=== PATIENT | female | born 1940 | race Caucasian/White ===

== ENCOUNTER → 2025-03-13 06:58 | Outpatient (REF) | payer MEDICARE, OTHER, SELFPAY ==
[2025-03-13] MEDS: AMINOPHYLLINE 75 MG IV (08:55)
[2025-03-13] MEDS: FLUSH (NSS) 1 FLUSH IV (08:55)
[2025-03-13] MEDS: LEXISCAN 0.4 MG IV (08:55)
== END ==
LOC: RCS 06:58
PROVIDERS: ATTENDING PHYSICIAN Internal Medicine Cardiovascular Disease; FAMILY PHYSICIAN Internal Medicine
DX: I25.10 Atherosclerotic heart disease of native coronary artery without angina pectoris (principal); I25.9 Chronic ischemic heart disease, unspecified
CPT/HCPCS: 78452; 93017; A9500; J2785

== ENCOUNTER 2025-07-05 22:09 | Inpatient (IN) | payer MEDICARE, OTHER, SELFPAY ==
[2025-07-05 15:04] VITALS: BP 153/82
[2025-07-05 15:44] LABS: Hematocrit 38.1 % (37.0-47.0); Hemoglobin 12.6 g/dL (12.0-16.0); Mean Corp Hgb Conc. 33.1 g/dL (33.0-37.0); Mean Corpuscular Volume 84.5 fL (81.0-99.0); Nucleated Red Blood Cells % 0 %; Platelet Count 233 10^3/uL (130-400); Red Cell Dist. Width 16.1 % (11.5-14.5)
[2025-07-05 15:53] LABS: ALT (SGPT) 17 U/L (0-35); AST (SGOT) 19 U/L (14-36); Albumin 4.0 g/dl (3.5-5.0); Alkaline Phosphatase 137 U/L (38-126); Blood Urea Nitrogen 36 mg/dl (7-17); Calcium 9.3 mg/dl (8.4-10.2); Carbon Dioxide 25 mmol/L (22-30); Chloride 107 mmol/L (98-107); Glucose 143 mg/dl (70-99); Potassium 4.3 mmol/L (3.5-5.1); Sodium 138 mmol/L (135-145); Total Protein 6.5 g/dl (6.3-8.2); eGFR 40.05
--- NOTE | 2025-07-05 18:53 | EDRN ---
Addendum entered by Wan Balderrama RN 07/05/25 19:01:
delivery tech checked pt's accucheck: 129. delivery tech reports pt's son had breached the security doors more than once to complain about the wait prior to the noted interaction. There was staff at the front window cashier. Security involved.
Original Note:
Pt's son came back through unsecured double door from waiting room to protocol area behind triage and was berating ER techs regarding long wait for his mother. This RN instructed him to leave this area and speak with the staff at the cashier receptionist area
in [place]. Son became angered, but did vacate area. Charge nurse and security aware.
[2025-07-05 18:56] LABS: Glucose - Point of Care 129 mg/dl (70-99)
[2025-07-05 19:59] VITALS: BMI 30.3
--- NOTE | 2025-07-05 20:02 | ED.GENMED ---
History of Present Illness
General
Chief Complaint: Breathing Problem
Source: family
Exam Limitations: none
Time Seen by Provider: 07/05/25 19:47
History of Present Illness
History of Present Illness:
Increasing shortness of breath mostly with exertion for weeks. Outpatient chest x-ray showed large left effusion. Sent in for definitive management. No chest pain no fever no cough.
Past History
Past History
ED Past Medical History: Arrthythmia, HTN, Hypercholesterolemia and NIDDM
ED Past Surgical History: Appendectomy, Cholecystectomy, Gynecological, Orthopedic and Tonsilectomy
Phy Exam
Physical Exam
Physical Exam:
GENERAL: Alert and oriented in no apparent distress
EYE: Orbits normal.
NECK: Supple, no significant adenopathy.
ENT: Pharynx without erythema
CARDIAC: Irregular irregular no murmur
LUNGS: No respiratory distress. Decreased breath sounds two thirds the way up the left lung
ABDOMEN: Soft, without focal tenderness or distention
NEUROLOGICAL: Alert and oriented , grossly non-focal
SKIN: Warm and dry, no rash or lesion, no discoloration, skin intact.
MUSCULOSKELETAL: No edema,no deformity.Good color
PSYCH: Normal and appropriate interaction.
Scores
Heart Failure Risk
Heart Failure Risk Score: Not Applicable
Course
Orders/Labs/Results
Orders:
Orders
07/05/25 15:15
Electrocardiogram (*1) Urgent
Reason for Study: Chest Pain
EKG- Treatment ONCE
07/05/25 15:16
Chest [CR Chest - 2 Views ] Urgent
Comment:
Reason For Exam: sob
07/05/25 15:28
Complete Blood Count/With Diff Urgent
Comprehensive Metabolic Panel Urgent
NT-proBNP Urgent
07/05/25 21:27
Admit/Transfer Patient As Directed
Co-Sign Provider:
Level of Care: Inpatient admission
Assign to:: Telemetry
Physician / Group: [email or web address]
Diagnosis: Symtomatic Lt sided pleural effusion, AFib, HTN
Reason for Telemetry: Arrhythmia
Date to Stop Telemetry: 07/08/25
Time to Stop Telemetry: 11:00
Reason for Hospitalization: Symptomatic Lt sided pleural effusion, AFib, HTN
Expected length of stay greater than two midnights?: Yes
ELOS- Estimated Length of Stay in days: 3
I certify the patient meets the requirements for IP care: Yes
07/05/25 21:30
Code Status As Directed
Resuscitation Status: Full Code
07/08/25 11:00
DC Protocol for Telemetry ONCE
Abnormal Lab Results
07/05/25 07/05/25
15:28 18:55
RDW 16.1 H %
(11.5-14.5)
Absolute Neuts (auto) 8.1 H 10^3/uL
(1.4-6.5)
Absolute Monos (auto) 0.9 H 10^3/uL
(0.1-0.6)
Neutrophils % 76.1 H %
(42.2-75.2)
Lymphocytes % 14.7 L %
(20.5-51.1)
BUN 36 H mg/dl
(7-17)
Creatinine 1.3 H mg/dL
(0.6-1.0)
Glucose 143 H mg/dl
(70-99)
Alkaline Phosphatase 137 H U/L
(38-126)
POC Glucose 129 H mg/dl
(70-99)
07/05/25 15:28
07/05/25 15:28
Vital Signs
Initial and Last Documented VS:
Initial Vital Signs
Temp Pulse Resp BP Pulse Ox
98.6 F 110 20 153/82 98
07/05/25 15:04 07/05/25 15:04 07/05/25 15:04 07/05/25 15:04 07/05/25 15:04
Last Documented Vital Signs
Temp Pulse Resp BP Pulse Ox
98.6 F 94 21 159/90 97
07/05/25 15:04 07/05/25 21:15 07/05/25 21:15 07/05/25 20:03 07/05/25 21:15
MDM/Problems Addressed
Differential Diagnosis Includes:
Large left effusion. Atrial fibrillation. Clinically stable. Warrants admission thoracentesis and further workup
*Pulse Oximetry
SaO2: 98
Oxygen Mode of Delivery: Room air
Patient hypoxic: no
*EKG
Interpreted by ED Provider?: Yes
Interpretation: abnormal
Comparison EKG: no comparison EKG present
Heart Rate: 109
Rate: tachycardiac
Rhythm: a-fib
[place]: normal axis
Interval: normal interval
QRS Pattern: normal QRS
Ischemia: non-specific ST changes
*Critical Care Note
Total Time (30-74mins, 75-104mins- exclusive of procedures): Not Applicable
ED Attending Note
-
Portions of this chart may have been created with voice recognition software.� Occasional wrong word or��sound alike� substitutions may have occurred due to the inherent limitations of voice recognition software.
Discharge Plan
Departure
Patient Disposition: Admit
Date of Disposition: 07/05/25
Time of Disposition: 20:42
Presentation/result/management discussed w/ accepting MD/DO: Hospitalist
Discharge Problem:
Symptomatic large left pleural effusion, Atrial fibrillation
Referrals:
Mike Stafford MD [Family Provider, Internal Medicine]
Interventions
Interventions:
*Risk Screen - Suicide Last Done: 07/05/25 15:04
*General Assessment Last Done: 07/05/25 19:59
*Neglect/Abuse Screening Last Done: 07/05/25 15:04
*ED- Fall Risk Assessment Last Done: 07/05/25 19:59
*ED COVID-19 Vaccine History Last Done: 07/05/25 19:59
ED- Cardiac Assessment Last Done: 07/05/25 19:53
ED- Pulmonary Assessment Last Done: 07/05/25 19:53
Discharge Date and Time
Print Language: Norwegian
[2025-07-05 20:03] VITALS: BP 159/90
--- NOTE | 2025-07-05 21:16 | HPS.HSE ---
Family Physician
-
Family Physician: Mike Stafford
Chief Complaint
-
sob
History of Present Illness
HPI
85F Ukaranian speaker , BiB Slovak speaker son HX permanent AF on chr Eliquis, HTN, Hypercholesterolemia and NIDDM on Metformin seen at ER:
- Increasing shortness of breath mostly with exertion for weeks.
- OutpatientCXR POS large left effusion.
- No chest pain no fever no cough.
Medical History
Past Medical History
Past Medical History: Reports Arrhythmia, HTN and Hypercholesterolemia
Past Surgical History: Reports Other
Social History
Alcohol: None
Family History
Family History: Not pertinent
Allergies / Home Medications
Allergies reflects when Allergies were last updated in [facility].
Home Medications with original date entered in [facility]
Allergy/Medication List:
Allergies
Allergy/AdvReac Type Severity Reaction Status Date / Time
iodine Allergy Unknown Verified 07/05/25 15:04
morphine Allergy Unknown Verified 07/05/25 15:04
If medication reconciliation has not been performed, why?: Medication List N/A
Review of Systems
-
Constitutional: Reports No Symptoms
EENT: Reports No Symptoms
Respiratory: Reports See HPI and Trouble Breathing
Cardiac: Reports No Symptoms
Abdomen/GI: Reports No Symptoms
: Reports No Symptoms
Musculoskeletal: Reports No Symptoms
Skin: Reports No Symptoms
Neurological: Reports No Symptoms
Endocrine: Reports No Symptoms
Hematologic/Lymphatic: Reports No Symptoms
Psych: Reports No Symptoms
Physical Exam
Vital Signs
Vital Signs
Temp Pulse Resp BP Pulse Ox
98.6 F 99 20 159/90 96
07/05/25 15:04 07/05/25 20:45 07/05/25 20:45 07/05/25 20:03 07/05/25 20:45
Physical Exam
General: No Apparent Distress
HEENT: NormoCephalic, Anicteric and Moist mucous membranes
Respiratory: Other (Decreased breath sounds two thirds the way up the left lung)
Cardiac: S1/S2 and Irregular Rhythm
GI: Soft, Non Tender and Non Distended
Rectal: Deferred by Provider
Genito-urinary: Deferred by me
Musculoskeletal: No Edema
Neuro: AO x 3
Psych: Calm and Intact Judgment/Insight
Laboratory Results
-
07/05/25 15:28
07/05/25 15:28
Laboratory Results
Total Bilirubin 0.6 mg/dl (0.2-1.3) 07/05/25 15:28
AST 19 U/L (14-36) 07/05/25 15:28
ALT 17 U/L (0-35) 07/05/25 15:28
Alkaline Phosphatase 137 U/L (38-126) H 07/05/25 15:28
Data Reviewed
-
Diagnostic Radiology: Report Reviewed by me
Lab Data: Labs Reviewed by me
Impression/Plan
-
Relevant Data
Laboratory Tests
07/05/25
15:28
WBC 10.6
Hgb 12.6
Plt Count 233
BUN 36 H
Creatinine 1.3 H
eGFR 40.05
Glucose 143 H
AST 19
ALT 17
Alkaline Phosphatase 137 H
Dhd-[id number]-Ueyuxavpcxq Pept 1560
EKG
ATRIAL FIBRILLATION WITH RAPID VENTRICULAR RESPONSE
NONSPECIFIC T WAVE ABNORMALITY
ABNORMAL ECG
NO PREVIOUS ECGS AVAILABLE
Confirmed by TENNILLE FLOREZ MD ([id number]) on 07/05/2025 4:17:41 PM
CXR
Dense opacification of the majority of the left lung favored to represent a combination of large pleural fluid, and atelectasis and/or pneumonia.
A small portion of the left upper lobe remains aerated.
Imaging follow-up is recommended as an underlying mass would be difficult to exclude.
No pneumothorax.
The cardiac silhouette is enlarged.
Moderate thoracic dextroscoliosis.
ASSESSMENT & PLAN
Pending Rx reconciliation
NO PRIOR hospitalist admission:
Lt sided pleural effusion - presumed symptomatic - Malignant vs Benign , Transudate vs exudate
- suspect combination of large pleural fluid, and atelectasis and/or PNA
- To consider CT imaging after Thoracentesis
- Dx-tic and Rx-tic Lt sided thoracentesis - appropriate test are ordered and IR consult
- Pul consult
Renal insufficiency of uncertain chronicity
- No prior DH admission
Perm A Fib with RVR
- permissive RVR
- ECHO
- IV Metoprolol 5mg PRN if HR > 125
- On Eliquis BID - will hold for pending Thoracentesis
- CBC card consult
Essential HTN
- Pending Rx reconciliation
DMT2
- Hold metformin
- add ISS low
- 1800 Tanmay ADA diet
DVT Px SQHG
Code: Full
IP TLM
[2025-07-05 22:45] VITALS: BP 141/55
[2025-07-05 23:15] VITALS: BMI 31.7
[2025-07-05] MEDS: LIPITOR 10 MG PO (23:24)
[2025-07-05] MEDS: TYLENOL 650 MG PO (23:24)
[2025-07-05 23:48] VITALS: BP 141/55
[2025-07-06] VITALS (8 sets, daily range): BP systolic 91–166; BP diastolic 48–92; BMI 31.7
--- NOTE | 2025-07-06 | PTCARENOTE ---
Pt. admitted from E.D. with son, AAO x 3, Armenian speaking only, assist x 1 with rolling walker to bed, bed alarm intact and call valle at bedside.
--- NOTE | 2025-07-06 03:00 | PTCARENOTE ---
Pt. noted to be short of breath, GARCIA, 89% RA, applied 2L at 97%, put head of bed up for comfort.
[2025-07-06 08:39] LABS: Glucose - Point of Care 126 mg/dl (70-99)
[2025-07-06 08:54] LABS: Hematocrit 39.2 % (37.0-47.0); Hemoglobin 12.9 g/dL (12.0-16.0); Mean Corp Hgb Conc. 32.9 g/dL (33.0-37.0); Mean Corpuscular Volume 86.7 fL (81.0-99.0); Platelet Count 233 10^3/uL (130-400); Red Cell Dist. Width 16.2 % (11.5-14.5)
[2025-07-06] MEDS: NEURONTIN 100 MG PO ×3 (08:56→21:19)
[2025-07-06] MEDS: NOVOLOG FLEXPEN-LOW RESISTANCE SC (08:56)
[2025-07-06] MEDS: FARXIGA 10 MG PO (08:56)
[2025-07-06] MEDS: LASIX 40 MG PO (08:56)
[2025-07-06] MEDS: KCL 10 MEQ PO (08:57)
[2025-07-06] MEDS: TOPROL XL 50 MG PO (08:57)
--- NOTE | 2025-07-06 08:58 | W.PN.HOSP.TC ---
Today's Communication/Plan
-
Continue medications
Thoracentesis when available
HOLD Eliquis, will need to adjust to 5mg BID home dose upon restart
Assessment / Plan
Assessment / Plan
Assessment
This is an 85 y/o female with pmhx of essential hypertension, permanent atrial fibrillation on Eliquis 5mg BID, hypercholesterolemia and type II diabetes mellitus who presented to the ED on 07/05/2025 with ongoing shortness of breath for several
weeks due to left sided pleural effusion found on outpatient X-ray.
Plan
Symptomatic Left Sided Pleural Effusion
-As noted on X-ray in the ED: Dense opacification of the majority of the left lung favored to represent a combination of large pleural fluid, and atelectasis and/or pneumonia. A small portion of the left upper lob remains aerated. Imaging follow up
recommended as underlying mass would be difficult to exclude. The cardiac silhouette is enlarged. Moderate thoracic dextroscoliosis.
-Currently on 2L supplemental O2
-IR has been consulted for thoracentesis. Pulmonology has also been consulted. Will appreciate their insights into her case
-HOLDING home Eliquis 5mg BID pending thoracentesis
-Will reevaluate symptoms following thoracentesis and daily
-Will monitor
HFpEF
-Patient is a known patient of Dr. Henson for cardiology
-BNP on 07/05 was 1560
-Cardiology is following, will appreciate their insight into her case
-Echocardiogram has been ordered
-Continue Lasix 40mg
-Will monitor
Essential hypertension
-Continue Nicky 8mg, Metoprolol 50mg IV, Metoprolol XL 50mg
-Will monitor
Permanent atrial fibrillation
-On Eliquis 5mg BID at home, holding in anticipation of thoracentesis
-Will resume home dose of 5mg BID after thoracentesis is performed
Hypercholesterolemia
-Continue Lasix 40mg
Type II diabetes mellitus
-Continue Farxiga 10mg, Actos 30mg
-Hold Metformin
-Continue insulin sliding scale
Anticipated Discharge: > 48 hours
Subjective/Interval History
-
Date of Service: July 06, 2025
[employer] was used for [place]ian Translation, Krzysztof BROWN was providing medical billing assistant services.
Today, she reports feeling well. She is not short of breath while laying down on 2L of supplemental oxygen, but feels that if she were to try to stand up she would feel short of breath. She denies any fevers, chills, or recent illness. She does
report feeling very weak and tired at baseline. She is not certain exactly when her symptoms began as she has �not been paying attention� but feels it may have started 1 month ago.
Her son is not currently present but is involved with her care, and may be planning to take her home upon discharge from the hospital to help her with her care. She currently lives in apartment complex for seniors.
Objective Data
-
Labs:
Laboratory Results
07/06/25 07/06/25
08:03 13:00
WBC 7.8
Hgb 12.9
Hct 39.2 Pending
Plt Count 233
PT Pending
INR Pending
Sodium Pending
Potassium Pending
Chloride Pending
Carbon Dioxide Pending
BUN Pending
Creatinine Pending
Glucose Pending Pending
Calcium Pending
Vital Signs:
Vital Signs
Temp Pulse Resp BP Pulse Ox
98.1 F 108 20 160/92 95
07/06/25 03:00 07/06/25 03:00 07/06/25 03:00 07/06/25 03:00 07/06/25 03:00
Review of Systems
-
History Source: Patient
Constitutional: Reports Weakness; Denies Fever or Chills
Respiratory: Denies Cough or Trouble Breathing
Cardiac: Denies Chest Pain or Palpitations
Abdomen/GI: Denies Abdominal Pain, Nausea or Vomiting
Neuro: Reports Dizzy, Weakness and Lightheadedness; Denies Headache
Physical Exam
-
General: Well Developed, Well Nourished, No Apparent Distress and Comfortable
HEENT: Oxygen (2L )
Respiratory: Clear to Auscultation (Right side only) and Decreased Breath Sounds (Left side middle and lower lobes)
Cardiac: S1/S2 and Irregular Rhythm; Negative Murmur or Tachycardic
GI: Soft, Nontender, Nondistended and Normal Bowel Sounds
Musculoskeletal: No Edema
Skin: Warm and Dry
Neuro: Awake, Alert and Oriented
Psych: Calm
[2025-07-06] MEDS: ACTOS 30 MG PO (09:10)
[2025-07-06] MEDS: CARDURA 8 MG PO (09:11)
[2025-07-06 09:13] LABS: INR 1.29; PT 16.3 Sec (11.4-14.6)
[2025-07-06 09:52] LABS: Blood Urea Nitrogen 32 mg/dl (7-17); Calcium 9.0 mg/dl (8.4-10.2); Carbon Dioxide 23 mmol/L (22-30); Chloride 107 mmol/L (98-107); Estimated Creatinine Clearance 42 ml/min; Glucose 128 mg/dl (70-99); Potassium 4.3 mmol/L (3.5-5.1); Sodium 140 mmol/L (135-145); eGFR 54.87
--- NOTE | 2025-07-06 10:22 | CON.CAR ---
Addendum entered and electronically signed by Tony El MD 07/06/25 14:03:
I saw and evaluated the patient, and I provided the substantive portion of the medical decision making.
I reviewed and agree with the note by VIVEK and it accurately reflects our care.
I personally performed the medical decision making of the this encounter and my assessment and plan is below:
85 y/o female (patient of Dr. Henson) with DM, hypertension, dyslipidemia, HFpEF, permanent AFIB on Eliquis who is here for evaluation of 1 week of fatigue, weakness, 'feeling of choking in her throat', and SOB. SOB worse with laying and bending over.
Physical exam: Irregular rate and rhythm, no murmurs, decreased breath sounds at left lung base, trace lower extremity edema
Telemetry: Atrial fibrillation, HR 90s�100s
I personally reviewed her chest x-ray which shows almost complete whiteout of the left lung.
Acute on chronic HFpEF: Start 40 mg IV Lasix twice daily. Continue SGLT2 inhibitor. IR to evaluate for possible thoracentesis.
Permanent atrial fibrillation: Metoprolol increased from 25 to 50 mg daily. Monitor on telemetry. Goal HR less than 120 bpm. Increase Eliquis to 5 mg twice daily.
Left lung opacity: IR to assess for thoracentesis. Repeat imaging after.
Original Note:
Consultation
Consultation Request
Date/Time Consultation Requested: 07/05/25 9158
Date/Time Consultation Performed: 07/06/25 1022
Requesting Provider: Dr. Jimenez
Performing Provider: Clara DOYLE for Dr. Freire
Reason for Consultation: AFIB with RVR
Medical History
-
Chief Complaint: SOB
History of Present Illness:
85 y/o female (patient of Dr. Henson) with DM, hypertension, dyslipidemia, HFpEF, permanent AFIB on Eliquis who is here for evaluation of 1 week of fatigue, weakness, 'feeling of choking in her throat', and SOB. SOB worse with laying and bending
over. She denies any fever, chills, cough, palpitations, or chest pain. She is in no distress at the time of my assessment. On arrival, she is seen to be in AFIB with RVR and metoprolol dosing has been increased. CXR shows: Dense opacification of
the majority of the left lung favored to represent a combination of large pleural fluid, and atelectasis and/or pneumonia. Imaging follow-up is recommended as an underlying mass would be difficult to exclude. The cardiac silhouette is enlarged. She
is in no distress at the time of my assessment. She is Japanese-speaking and we used the cosmetic chemist IPAD to communicate effectively.
Past Medical History
Past Medical History: Arrhythmias, CHF, HTN, Hypercholesterolemia and NIDDM
Social History
Tobacco: Non-Smoker
Family History
Family History: Reviewed & Not Pertinent
Allergies / Home Medications
Allergy/AdvReac Type Severity Reaction Status Date / Time
iodine Allergy Unknown Verified 07/05/25 15:04
morphine Allergy Unknown Verified 07/05/25 15:04
�Medication �Instructions �Recorded �Confirmed �Type
apixaban 5 mg tablet (Eliquis) 5 mg PO BID 07/05/25 07/05/25 History
atorvastatin 10 mg tablet 10 mg PO HS 07/05/25 07/05/25 History
cholecalciferol (vitamin D3) 50 50 mcg PO DAILY 07/05/25 07/05/25 History
mcg (2,000 unit) capsule (Vitamin
D3)
doxazosin 8 mg tablet 8 mg PO DAILY 07/05/25 07/05/25 History
dulaglutide 3 mg/0.5 mL 3 mg SC QWEEK 07/05/25 07/05/25 History
subcutaneous pen injector
(Trulicity)
empagliflozin 10 mg tablet 10 mg PO DAILY 07/05/25 07/05/25 History
(Jardiance)
furosemide 40 mg tablet 40 mg PO DAILY 07/05/25 07/05/25 History
gabapentin 100 mg capsule 100 mg PO DAILY 07/05/25 07/05/25 History
icosapent ethyl 1 gram capsule 2 g PO BID 07/05/25 07/05/25 History
(Vascepa)
magnesium 200 mg tablet 400 mg PO DAILY 07/05/25 07/05/25 History
metformin 850 mg tablet 850 mg PO BID 07/05/25 07/05/25 History
metoprolol tartrate 25 mg tablet 25 mg PO DAILY 07/05/25 07/05/25 History
pioglitazone 30 mg tablet 30 mg PO DAILY 07/05/25 07/05/25 History
potassium chloride 10 mEq 10 meq PO DAILY 07/05/25 07/05/25 History
tablet,extended release
valsartan 160 1 tab PO DAILY 07/05/25 07/05/25 History
mg-hydrochlorothiazide 25 mg tablet
Review of Systems
-
History Source: Patient
All other systems: Negative unless noted
Constitutional: Fatigue and Other (as noted in HPI)
Respiratory: Trouble Breathing
Physical Exam
Vital Signs
Temp Pulse Resp BP Pulse Ox
97.7 F 71 18 166/62 93
07/06/25 08:00 07/06/25 08:00 07/06/25 08:00 07/06/25 08:00 07/06/25 08:00
Lab Results
Wbf-O-Dbgiinjjrdb Pept 1560 pg/ml 07/05/25 15:28
Physical Exam
General: Well Developed, Well Nourished and No Apparent Distress
HEENT: Normocephalic and Anicteric
Respiratory: Other (left base diminished)
Cardiac: Irregular Rhythm and Murmur (II/ systolic murmur)
Musculoskeletal: Edema (mild BLE edema, chronic unchanged per patient)
Skin: Warm and Dry
Neuro: AO x 3
Psych: Calm
Impression / Plan
-
SOB:
-CXR abnormal: Dense opacification of the majority of the left lung favored to represent a combination of large pleural fluid, and atelectasis and/or pneumonia. A small portion of the left upper lobe remains aerated. Imaging follow-up is
recommended as an underlying mass would be difficult to exclude. The cardiac silhouette is enlarged.
-pulmonary is consulted
-IR is consulted to evaluate for thoracentesis
-also with CHF as below
Sgstd-vq-pqfuzwr HFpEF:
-update echo
-on SGLT2I
-continue lasix, likely transition to IV (which will require intensive monitoring), but also getting a thora today
-she has orthopnea. Denies any weight gain, but weight gain is present when compared to OP OV with movement assembler 02/2025. LE edema noted, but she reports chronic. BNP 1520.
Permanent AFIB:
-continue increased dose metoprolol and monitor- may need further dose increase.
-Eliquis held for possible thoracentesis- Of note, her correct dose is 5 mg PO BID- so this is the dose that should be resumed when safe.
HTN:
-on Doxazosin, metoprolol, ARB/HCTZ as OP
-monitor with med adjustments
Data Reviewed
-
EKG: Tracing Personally Visualized and interpreted (AFIB with RVR 109 BPM, nonspecific T abnormality)
Radiology: Report Reviewed by me (CXR: Dense opacification of the majority of the left lung favored to represent a combination of large pleural fluid, and atelectasis and/or pneumonia. A small portion of the left upper lobe remains aerated. Imaging
follow-up is recommended as an underlying mass would be difficult to exclude. )
Medical Tests (Nuc Med, Echo etc): Other (Lexiscan stress test 03/13/25: Negative ECG for ischemia given the pharmacological study. Normal Lexiscan nuclear stress test. Systolic function is normal. The ejection fraction is 62%. )
Labs: Labs Reviewed by me
[2025-07-06 11:22] LABS: Glycohemoglobin (HgbA1c) 6.7 % (4.0-5.6)
[2025-07-06 12:30] LABS: Glucose - Point of Care 165 mg/dl (70-99)
[2025-07-06] MEDS: NOVOLOG FLEXPEN-LOW RESISTANCE 1 UNITS SC (13:00)
[2025-07-06] MEDS: LASIX 40 MG IV (13:58)
[2025-07-06] MEDS: DICLOFENAC 1% TOPICAL GEL 100 GRAM TOPICAL (13:58)
--- NOTE | 2025-07-06 14:55 | CON.PUL ---
Consultation
Consultation Request
Date/Time Consultation Requested: 07/05/20252237
Date/Time Consultation Performed: 07/06/2025 - 911
Requesting Provider: Dr. Jimenez
Performing Provider: Dr. Montano
Reason for Consultation: Pleural effusion
Medical History
-
Chief Complaint: Left pleural effusion
History of Present Illness:
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
pleural effusion. Patient had recently seen teradata solution architect, Dr. Henson, on 06/29/2025 complaining of SOB. She was recently admitted to [facility] with retrosternal chest pain, found to be in new onset A-fib treated medically and started
on Eliquis and metoprolol. She still endorsed chest discomfort with radiation to LUE/left-sided shoulder. CXR was ordered at that office visit, and performed on 07/05 showing a large left-sided pleural effusion. No prior imaging available for
comparison. In the ER she was afebrile with pulse rate 110, breathing at 20 breaths/min, BP 153/82 and saturating 98% on room air. Labs showed normal WBC at 10.6, Hb 12.6, platelets 233, creatinine 1.3, and proBNP 1560. Patient admitted to
telemetry with cardiology consulted. Pulmonary service also consulted for additional management/recommendations.
When I saw the patient, I used the Occitan language iPAD (laundry housekeeping aide number: [id number]). Patient says that since her thoracentesis earlier today, she has had a cough and some chest discomfort but the symptoms are improving. She says she was having
weakness for about 1 month prior to arrival and was having trouble laying down. Was also short of breath for about 1 week prior to arrival but did not have a cough. She is currently on room air, breathing comfortably, and currently denies TREVIÑO,
abdominal pain, nausea, fevers or chills.
PMHx: Atrial flutter/A-fib on Eliquis, arthritis, history of pneumonia, hypertension, hyperlipidemia, DM type II on OAG c/b retinopathy, chronic HFpEF
PSHx: Appendectomy, cholecystectomy, left breast lumpectomy, left hip repair, T&A
Past Medical History
Past Medical History: Other (Above as per HPI)
Past Surgical History: Other (Above as per HPI)
Social History
Tobacco: Non-smoker
Alcohol: None
Drug: None
Family History
Family History: Diabetes (Father) and Hypertension (Father + mother)
Allergies / Home Medications
Allergies
Allergy/AdvReac Type Severity Reaction Status Date / Time
iodine Allergy Unknown Verified 07/05/25 15:04
morphine Allergy Unknown Verified 07/05/25 15:04
Home Medications
�Medication �Instructions �Recorded �Confirmed �Last Taken �Type
apixaban 5 mg tablet (Eliquis) 5 mg PO BID 07/05/25 07/05/25 Unknown History
atorvastatin 10 mg tablet 10 mg PO HS 07/05/25 07/05/25 Unknown History
cholecalciferol (vitamin D3) 50 50 mcg PO DAILY 07/05/25 07/05/25 Unknown History
mcg (2,000 unit) capsule (Vitamin
D3)
doxazosin 8 mg tablet 8 mg PO DAILY 07/05/25 07/05/25 Unknown History
dulaglutide 3 mg/0.5 mL 3 mg SC QWEEK 07/05/25 07/05/25 Unknown History
subcutaneous pen injector
(Trulicity)
empagliflozin 10 mg tablet 10 mg PO DAILY 07/05/25 07/05/25 Unknown History
(Jardiance)
furosemide 40 mg tablet 40 mg PO DAILY 07/05/25 07/05/25 Unknown History
gabapentin 100 mg capsule 100 mg PO DAILY 07/05/25 07/05/25 Unknown History
icosapent ethyl 1 gram capsule 2 g PO BID 07/05/25 07/05/25 Unknown History
(Vascepa)
magnesium 200 mg tablet 400 mg PO DAILY 07/05/25 07/05/25 Unknown History
metformin 850 mg tablet 850 mg PO BID 07/05/25 07/05/25 Unknown History
metoprolol tartrate 25 mg tablet 25 mg PO DAILY 07/05/25 07/05/25 Unknown History
pioglitazone 30 mg tablet 30 mg PO DAILY 07/05/25 07/05/25 Unknown History
potassium chloride 10 mEq 10 meq PO DAILY 07/05/25 07/05/25 Unknown History
tablet,extended release
valsartan 160 1 tab PO DAILY 07/05/25 07/05/25 Unknown History
mg-hydrochlorothiazide 25 mg tablet
Review of Systems
-
History Source: Patient
All other systems: Negative unless noted
Vitals / Labs / Diagnostic Testing
Vital Signs
Temp Pulse Resp BP Pulse Ox
97.7 F 71 18 166/62 93
07/06/25 08:00 07/06/25 08:00 07/06/25 08:00 07/06/25 08:00 07/06/25 08:00
Laboratory Results
07/06/25
08:03
PT 16.3 H
INR 1.29
Diagnostic Testing:
Physical Exam
-
HEENT: Normocephalic and Anicteric
Cardiovascular: S1/S2 and Peripheral Edema (Trace lower extremity edema bilaterally)
Respiratory: Wheeze (negative), Rales (Left middle lung field), Rhonchi (negative), Non-Labored Respirations and Other (Diminished breath sounds in the left base to left middle lung field)
GI: Soft, Non Distended, Non Tender and Normal Bowel Sounds
Neurology: Awake, Alert, Oriented and Tremors (negative)
Skin: Warm and Dry
General: Respiratory Distress (negative), Comfortable, Fever (negative) and Chills (negative)
Assessment
-
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
left-sided pleural effusion. Patient had recently seen teradata solution architect, Dr. Henson, on 06/29/2025 complaining of SOB. She was recently admitted to [facility] with retrosternal chest pain, found to be in new onset A-fib treated medically
and started on Eliquis and metoprolol. She still endorsed chest discomfort with radiation to LUE/left-sided shoulder. CXR was ordered at that office visit, and performed on 07/05 showing a large left-sided pleural effusion. No prior imaging
available for comparison. In the ER she was afebrile with pulse rate 110, breathing at 20 breaths/min, BP 153/82 and saturating 98% on room air. Labs showed normal WBC at 10.6, Hb 12.6, platelets 233, creatinine 1.3, and proBNP 1560. Patient
admitted to telemetry with cardiology consulted. Pulmonary service also consulted for additional management/recommendations.
Chronic conditions BOBBIN CLEANER HAND: Atrial flutter/A-fib on Eliquis, arthritis, history of pneumonia, hypertension, hyperlipidemia, DM type II on OAG c/b retinopathy, chronic HFpEF
Impression:
#Left-sided unilateral pleural effusion (no prior imaging available for comparison purposes to assess chronicity) � likely due to acute decompensated heart failure; s/p L-sided thoracentesis today
#[place] versus CKD
#Acute on chronic HFpEF
#Permanent A-fib
#Dyslipidemia
#Hypertension
#DM type II
Plan:
- Patient found to have a large left-sided pleural effusion on recent CXR on 07/05; she was recently admitted at [facility] and unclear if she had a pleural effusion at that time
- She is Rx lasix and was recently increased from 40 mg once a day to 40 mg twice a day at recent cardiology office visit on 07/03
- She had 1.5 L of straw-colored pleural fluid removed today -pH 7.44, WBC 302 which is monocyte predominant, glucose 160, T protein 4, LDH 96; believe that this is pseudo exudative in the setting of diuresis
- Follow-up cytopathology + pleural fluid culture
- Recheck CXR tomorrow to assess for any reaccumulation of fluid; if CT chest imaging is ordered from primary team then CXR can be deferred for now
- Check echo
- Recent Lexiscan stress test on 04/03 showed preserved LVEF at 62% and negative EKG for ischemia with normal Lexiscan nuclear stress test
- Sodium and fluid restriction
- trend UOP
- She has no WBC nor is she febrile --> monitor off ABx
- Trend WBC and monitor temperature curve
- Pt remains in A-fib
- Rate control is hamilton with goal <110
- Replete electrolytes with K>4, Mg>2
- Continue Eliquis and BB
- Cardiology on board
- Renally dose all meds and trend sCr; strict I/O
- Maintain SpO2 >90-94% with supplemental O2 as needed
- prn nebulized bronchodilators - not currently bronchospastic
- Incentive spirometer encouraged q1hr while awake
- Trend H/H and transfuse if needed to keep Hb>7g/dL; keep plt>20k, unless there is concern for bleeding then keep plt>50k
- Maintain euglycemia with goal BG >100 and <180
- DVT ppx: Eliquis
Pulmonary service will continue to follow along.
Data:
CXR 07/05/2025:
Dense opacification of the majority of the left lung favored to represent a combination of large pleural fluid, and atelectasis and/or pneumonia. A small portion of the left upper lobe remains aerated. Imaging follow-up is recommended as an
underlying mass would be difficult to exclude.
No pneumothorax.
The cardiac silhouette is enlarged.
Moderate thoracic dextroscoliosis.
Total time spent today was 58 minutes for this encounter. Time includes reviewing laboratory test/imaging results, reviewing pertinent medical records, obtaining and reviewing medical history, performing an appropriate exam, ordering medications,
tests and procedures. Time also includes documentation of this encounter, coordinating patient care and communicating with other healthcare professionals. Total time does not include separately billed tests performed on this date of service.
[2025-07-06 15:12] LABS: Body Fluid Second Tech FB
[2025-07-06 16:27] LABS: LDH 193 U/L (120-246)
[2025-07-06 17:25] LABS: Glucose - Point of Care 224 mg/dl (70-99)
[2025-07-06] MEDS: NOVOLOG FLEXPEN-LOW RESISTANCE 2 UNITS SC (17:27)
[2025-07-06] MEDS: DICLOFENAC 1% TOPICAL GEL TOPICAL (17:28)
[2025-07-06] MEDS: NON-FORMULARY ITEM 2 % TOPICAL (19:50)
[2025-07-06] MEDS: DICLOFENAC 1% TOPICAL GEL 1 GRAM TOPICAL (21:17)
[2025-07-06] MEDS: LIPITOR 10 MG PO (21:19)
[2025-07-06 22:11] LABS: Glucose - Point of Care 214 mg/dl (70-99)
[2025-07-07 03:43] VITALS: BP 129/68
[2025-07-07 06:00] VITALS: BMI 31.3
--- NOTE | 2025-07-07 07:05 | W.PN.HOSP.TC ---
Today's Communication/Plan
-
CT Chest w/ IV scan tomorrow after steroid prep.
Echo tomorrow
Start PPI
Assessment / Plan
Assessment / Plan
Assessment
This is an 85 y/o female with pmhx of essential hypertension, permanent atrial fibrillation on Eliquis 5mg BID, hypercholesterolemia and type II diabetes mellitus who presented to the ED on 07/05/2025 with ongoing shortness of breath for several
weeks due to left sided pleural effusion found on outpatient X-ray.
Plan
Acute Hypoxic Respiratory Failure, resolving
Symptomatic Left Sided Pleural Effusion
-As noted on X-ray in the ED: Dense opacification of the majority of the left lung favored to represent a combination of large pleural fluid, and atelectasis and/or pneumonia. A small portion of the left upper lob remains aerated. Imaging follow up
recommended as underlying mass would be difficult to exclude. The cardiac silhouette is enlarged. Moderate thoracic dextroscoliosis.
-S/p IR thoracentesis 07/06/2025 with 1.5L removed. Follow up X-ray showed moderate to large left sided pleural effusion.
--Cytology of thoracentesis revealed pH 7.44, WBC 302 Glucose 160, T protein 4, LDH 96. Serum LDH 193, serum total protein 6.5. Suspect exudative per Light's criteria
-Ordered CT with IV Contrast of the Chest. Given patient's unknown iodine allergy, will perform 13 hour steroid prep prior to administering contrast, though based upon above history from her and her son, it is unlikely to be a true anaphylactic
allergy. Coordinated time of steroid timing with radiology department to ensure appropriate scheduling.
-Continue home Eliquis 5mg BID until after CT scan in the event there is actionable results revealed on image.
-Will reevaluate symptoms daily
-Will monitor
Acute on Chronic HFpEF
-Patient is a known patient of Dr. Henson for cardiology
-BNP on 07/05 was 1560
-Cardiology is following, will appreciate their insight into her case
-Echocardiogram has been ordered, scheduled for 07/08
-Continue IV Lasix 40mg BID
-Continue metoprolol 50mg QD
-Will monitor
Heartburn
-Chronic
-Suspect could be secondary to her potassium supplement as it is a known irritant
-Start PPI today, Pantoprazole 40mg QD
-Will monitor
Acute Kidney Injury-Resolved
-Creatinine on 07/05 was elevated at 1.3, returned to 1.0 on 07/06
-No prior studies available
-Will monitor
Essential hypertension
-Continue Nicky 8mg, 50mg QD
-Will monitor
Permanent atrial fibrillation
-On Eliquis 5mg BID at home, holding in anticipation of thoracentesis
-Will resume home dose of 5mg BID after thoracentesis is performed
Hypercholesterolemia
-Continue home atorvastatin
Type II diabetes mellitus
-Continue Farxiga 10mg, Actos 30mg
-Hold Metformin
-Continue insulin sliding scale
Anticipated Discharge: 24 - 48 hours
Subjective/Interval History
-
Date of Service: July 07, 2025
[employer] wire rope sling maker gabriele was used for Ukranian to Azeri translation. Keya Quepasa was providing the translation. Her phone was also present on the phone contributing to the conversation.
Patient reports feeling wonderful today. She slept very well, and feels much better. She has been having some epigastric burning which is ongoing for some time, but otherwise is breathing much better and has no fevers, chills, or chest pain. She is
uncertain about her history of allergies. Her son reports when she received morphine in the past she developed a rash, but cannot remember her reaction to iodine. He denies any history of anaphylaxis or allergic reaction requiring hospitalization.
He states patient's granddaughter may know more, but unfortunately her phone went to voicemail this AM when Keya attempted to contact her to include her in the conversation.
Objective Data
-
Labs:
Laboratory Results
07/07/25
06:00
WBC Pending
Hgb Pending
Hct Pending
Plt Count Pending
Sodium Pending
Potassium Pending
Chloride Pending
Carbon Dioxide Pending
BUN Pending
Creatinine Pending
Glucose Pending
Calcium Pending
Vital Signs:
Vital Signs
Temp Pulse Resp BP Pulse Ox
97.3 F 97 19 129/68 96
07/07/25 03:43 07/07/25 03:43 07/07/25 03:43 07/07/25 03:43 07/07/25 03:43
I&O
07/06/25 07/07/25 07/08/25
06:59 06:59 06:59
Intake Total 480 / 480
Balance 480 / 480
Review of Systems
-
History Source: Patient and Family
Constitutional: Denies Chills
Respiratory: Denies Trouble Breathing
Cardiac: Denies Chest Pain
Abdomen/GI: Denies Abdominal Pain, Nausea or Vomiting
Physical Exam
-
General: Well Developed, Well Nourished and No Apparent Distress
HEENT: Normocephalic and Atraumatic
Respiratory: Clear to Auscultation (Right side and left side upper and middle lobe) and Decreased Breath Sounds (Left lower lobe, improved from yesterday)
Cardiac: S1/S2 and Irregular Rhythm
GI: Soft, Nontender and Nondistended
Skin: Warm, Dry and Rash
Psych: Calm
[2025-07-07 07:50] LABS: Glucose - Point of Care 131 mg/dl (70-99)
[2025-07-07] MEDS: ACTOS 30 MG PO (07:56)
[2025-07-07] MEDS: KCL 10 MEQ PO (07:56)
[2025-07-07] MEDS: NEURONTIN 100 MG PO ×3 (07:56→21:21)
[2025-07-07] MEDS: FARXIGA 10 MG PO (07:56)
[2025-07-07] MEDS: CARDURA 8 MG PO (07:56)
[2025-07-07] MEDS: LASIX 40 MG IV (08:01)
[2025-07-07] MEDS: NON-FORMULARY ITEM 5 % TOPICAL (08:02)
[2025-07-07] MEDS: DICLOFENAC 1% TOPICAL GEL 100 GRAM TOPICAL ×3 (08:03→17:17)
[2025-07-07] MEDS: TOPROL XL 50 MG PO (08:03)
[2025-07-07 08:25] VITALS: BP 134/70
[2025-07-07 08:33] LABS: Hematocrit 39.3 % (37.0-47.0); Hemoglobin 12.8 g/dL (12.0-16.0); Mean Corp Hgb Conc. 32.6 g/dL (33.0-37.0); Mean Corpuscular Volume 85.4 fL (81.0-99.0); Platelet Count 209 10^3/uL (130-400); Red Cell Dist. Width 16.2 % (11.5-14.5)
[2025-07-07] MEDS: NOVOLOG FLEXPEN-LOW RESISTANCE SC (08:58)
[2025-07-07 09:15] LABS: Blood Urea Nitrogen 33 mg/dl (7-17); Calcium 8.7 mg/dl (8.4-10.2); Carbon Dioxide 24 mmol/L (22-30); Chloride 107 mmol/L (98-107); Estimated Creatinine Clearance 42 ml/min; Glucose 161 mg/dl (70-99); Potassium 4.4 mmol/L (3.5-5.1); Sodium 138 mmol/L (135-145); eGFR 54.87
--- NOTE | 2025-07-07 11:02 | CM ---
Initial assessment completed w/primary contact/granddaughterDiane, via phone # [phone]
Pharmacy verified: [facility] @ [address] [facility]
Patient lives alone @ [facility] [address] [id number], [address], [place], [address]; elevator access; has a MECHANIC CHIEF every day during the day only; bathroom has stall shower
PLOF: granddaughter reported that patient ambulated w/ Rolling Walker; needs assistance w/ ADLs and medication administration which family and MECHANIC CHIEF provides
DME: Glucometer, RW, Cane, Grab Bar in Shower; shower chair
[facility] Health this year[facility]
If [facility] Health recommended, send referral to [facility]: [place] [address] [address],
Plan: Anticipate discharge to home w/ Home Health when medically stable; Case Management will monitor and support coordination of services when identified
[2025-07-07 11:43] VITALS: BP 100/58
[2025-07-07 11:43] LABS: Glucose - Point of Care 223 mg/dl (70-99)
[2025-07-07] MEDS: NOVOLOG FLEXPEN-LOW RESISTANCE 2 UNITS SC (12:23)
--- NOTE | 2025-07-07 13:31 | W.PN.CD ---
Today's Communication / Plan
-
Increase Lasix to 80mg BID
Repeat thora tomorrow
Impression / Plan
-
SOB with L pleural effusion:
-CXR abnormal: Dense opacification of the majority of the left lung favored to represent a combination of large pleural fluid, and atelectasis and/or pneumonia. A small portion of the left upper lobe remains aerated. Imaging follow-up is
recommended as an underlying mass would be difficult to exclude. The cardiac silhouette is enlarged.
-pulmonary is consulted
-s/p thoracentesis 1500 cc on 07/06 with plan for repeat 07/08
-CT chest after thoracenteses
-also with CHF as below
[id number]-he-[id number] HFpEF:
-update echo
-on SGLT2I
-continue IV Lasix. Increase to 80mg BID as she has not been peeing
-she has orthopnea. Denies any weight gain, but weight gain is present when compared to OP OV with desulphuring operator 02/2025. LE edema noted, but she reports chronic. BNP 1520.
Permanent AFIB:
-continue increased dose metoprolol and monitor- may need further dose increase.
-Eliquis held for possible thoracentesis- Of note, her correct dose is 5 mg PO BID- so this is the dose that should be resumed when safe.
HTN:
-on Doxazosin, metoprolol, ARB/HCTZ as OP
-monitor with med adjustments
Subjective: Breathing dramatically improved s/p thoracentesis
Physical Exam
Vital Signs/Labs
Vital Signs
Temp Pulse Resp BP Pulse Ox
98.1 F 91 20 100/58 97
07/07/25 11:43 07/07/25 11:43 07/07/25 11:43 07/07/25 11:43 07/07/25 11:43
07/06/25 07/07/25 07/08/25
06:59 06:59 06:59
Actual Weight 184 lb 9.6 oz 182 lb 6.4 oz
07/07/25 08:05
07/07/25 08:05
PT 16.3 Sec (11.4-14.6) H 07/06/25 08:03
INR 1.29 07/06/25 08:03
07/05/25
15:28
Wuq-N-Mwtfijfwjcm Pept 1560
Physical Exam
Constitutional: No acute distress and Comfortable
Cardiovascular: Rhythm & rate is regular, Pedal edema is absent, S1S2 is normal and Murmur/rub/gallop absent
Respiratory: Respiratory effort normal and Other (decreased breath sounds on L)
Neuro/Psych: AO x 3
Data Reviewed
-
Date of Service: July 07, 2025
Medical Decision Making: Reviewed Test Results, Test Interpretation and Review of Case with other Provider
EKG: Tracing Personally Visualized and interpreted
Echo: Report Reviewed by me
X-Ray/CT/US/MRI/NUC/PET: Image Personally Visualized and interpreted
Labs: Labs Reviewed by me
[2025-07-07] MEDS: PROTONIX 40 MG PO (13:36)
[2025-07-07 15:49] LABS: Glucose - Point of Care 161 mg/dl (70-99)
[2025-07-07] MEDS: LASIX 80 MG IV (16:02)
[2025-07-07] MEDS: NOVOLOG FLEXPEN-LOW RESISTANCE 1 UNITS SC (16:04)
[2025-07-07 16:35] VITALS: BP 101/62
--- NOTE | 2025-07-07 16:40 | W.PN.PUL3 ---
Today's Communication / Plan
-
Diuresis
Serial CXR
Check echo
Cards recs appreciated
CT chest pending - needs steroid prep
May need repeat thora since L-sided effusion still present, albeit improved
Pulmonary service will continue to monitor
Assessment
-
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
left-sided pleural effusion. Patient had recently seen inventory control manager, Dr. Henson, on 06/29/2025 complaining of SOB. She was recently admitted to [facility] with retrosternal chest pain, found to be in new onset A-fib treated medically
and started on Eliquis and metoprolol. She still endorsed chest discomfort with radiation to LUE/left-sided shoulder. CXR was ordered at that office visit, and performed on 07/05 showing a large left-sided pleural effusion. No prior imaging
available for comparison. In the ER she was afebrile with pulse rate 110, breathing at 20 breaths/min, BP 153/82 and saturating 98% on room air. Labs showed normal WBC at 10.6, Hb 12.6, platelets 233, creatinine 1.3, and proBNP 1560. Patient
admitted to telemetry with cardiology consulted. Pulmonary service also consulted for additional management/recommendations.
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
Impression:
#Left-sided unilateral pleural effusion (no prior imaging available for comparison purposes to assess chronicity) � likely due to acute decompensated heart failure; s/p L-sided thoracentesis 07/06/2025
#[place] versus CKD
#Acute on chronic HFpEF
#Permanent A-fib
#Dyslipidemia
#Hypertension
#DM type II
Plan:
- Patient found to have a large left-sided pleural effusion on recent CXR on 07/05; she was recently admitted at [facility] and unclear if she had a pleural effusion at that time
- She is Rx lasix and was recently increased from 40 mg once a day to 40 mg twice a day at recent cardiology office visit on 07/03
- She had 1.5 L of straw-colored pleural fluid removed on 07/06 -pH 7.44, WBC 302 which is monocyte predominant, glucose 160, T protein 4, LDH 96; believe that this is pseudo-exudative in the setting of diuresis
- Follow-up cytopathology + pleural fluid culture
- Continue serial CXR to assess for rate of re-reaccumulation of fluid; CT chest imaging is ordered from primary team
- Check echo
- Recent Lexiscan stress test on 04/03 showed preserved LVEF at 62% and negative EKG for ischemia with normal Lexiscan nuclear stress test
- Sodium and fluid restriction
- trend UOP
- If left sided pleural effusion persists then she may need repeat thora
- She has no WBC nor is she febrile --> monitor off ABx
- Trend WBC and monitor temperature curve
- Pt remains in paroxysmal A-fib
- Rate control is hamilton with goal <110
- Replete electrolytes with K>4, Mg>2
- Continue Eliquis and BB
- Cardiology on board
- Renally dose all meds and trend sCr; strict I/O
- Maintain SpO2 >90-94% with supplemental O2 as needed
- prn nebulized bronchodilators - not currently bronchospastic
- Incentive spirometer encouraged q1hr while awake
- Trend H/H and transfuse if needed to keep Hb>7g/dL; keep plt>20k, unless there is concern for bleeding then keep plt>50k
- Maintain euglycemia with goal BG >100 and <180
- DVT ppx: Eliquis
Pulmonary service will continue to follow along.
Data:
CXR 07/05/2025:
Dense opacification of the majority of the left lung favored to represent a combination of large pleural fluid, and atelectasis and/or pneumonia. A small portion of the left upper lobe remains aerated. Imaging follow-up is recommended as an
underlying mass would be difficult to exclude.
No pneumothorax.
The cardiac silhouette is enlarged.
Moderate thoracic dextroscoliosis.
Total time spent today was 36 minutes for this encounter. Time includes reviewing laboratory test/imaging results, reviewing pertinent medical records, obtaining and reviewing medical history, performing an appropriate exam, ordering medications,
tests and procedures. Time also includes documentation of this encounter, coordinating patient care and communicating with other healthcare professionals. Total time does not include separately billed tests performed on this date of service.
Subjective Data
-
Date of Service:
Date of Service: July 07, 2025
Chief Complaint: Pulmonary Follow Up
Subjective:
Pt seen today at bedside (late note entry). CXR today shows persistent L-sided pleural effusion, albeit improved from day of admission. Currently on room air saturating well.
Patient seen and evaluated on 07/07/2025
Review of Systems
General: Other (negative unless mentioned above)
Objective Data
Data Reviewed
Vital Signs / I&O / Oxygen:
Vital Signs
Temp Pulse Resp BP Pulse Ox
97.6 F 103 18 134/70 95
07/07/25 08:25 07/07/25 08:25 07/07/25 08:25 07/07/25 08:25 07/07/25 08:25
Intake and Output
07/06/25 07/07/25 07/08/25
06:59 06:59 06:59
Intake Total 480 / 480
Balance 480 / 480
SaO2 95
Nasal Cannula flow liters per 2
minute
Physical Exam
General: Respiratory Distress (negative), Comfortable, Chills (n) and Sweats (n)
HEENT: Normocephalic and Anicteric
Cardiovascular: Irregular Rhythm and Peripheral Edema (trace LE edema b/l)
Respiratory: Wheeze (n), Crackles (left middle lung field), Rhonchi (n) and Other (diminished BS at left base-left middle lung field)
GI: Soft, Non Distended, Non Tender and Normal Bowel Sounds
Neurology: Awake, Alert and Tremors (n)
Skin: Warm, Dry, Cyanosis (n) and Jaundice (n)
Labs/Micro/Reports
Lab Data
07/07/25 08:05
07/07/25 08:05
Microbiology
07/06/25 14:33 Pleural Fluid Gram Stain - Preliminary
[2025-07-07 19:00] VITALS: BP 102/47
[2025-07-07] MEDS: DELTASONE 50 MG PO (20:23)
[2025-07-07] MEDS: LIPITOR 10 MG PO (21:21)
[2025-07-07] MEDS: DICLOFENAC 1% TOPICAL GEL 1 GRAM TOPICAL (21:23)
[2025-07-07 21:26] LABS: Glucose - Point of Care 269 mg/dl (70-99)
[2025-07-07 23:00] VITALS: BP 110/60
[2025-07-08] VITALS (8 sets, daily range): BP systolic 97–143; BP diastolic 49–76; PULSE 87–135; O2SAT 95–97; BMI 32.0
[2025-07-08] MEDS: DELTASONE 50 MG PO ×2 (02:41→08:51)
[2025-07-08] MEDS: LOPRESSOR 5 MG IV (02:49)
--- NOTE | 2025-07-08 07:23 | W.PN.HOSP.TC ---
Addendum entered and electronically signed by Ry Mccollum MD 07/08/25 20:30:
Attending Addendum-
I saw and evaluated the patient. I reviewed the resident�s note and agree with findings and plan as documented in the resident�s note. Sub: Seen with son present. able to translate. patient denies SOB or GARCIA CP palps fevers chills. Full 12 point ROS
reviewed and negative except as documented Exam: Vitals reviewed in chart GEN-NAD heart irreg irreg lungs decreased BS LLL abd soft LE trace edema
Plan:
#Acute Hypoxic Respiratory Failure-resolved
#Symptomatic Left Sided Pleural Effusion
-s/p IR thoracentesis 07/06-1.5L
-cytology-P, exudate therefore not due to CHF
-CT chest-07/08
-repeat thoracentesis today if able
-CTM
#Acute on Chronic HFpEF
-Patient is a known patient of Dr. Henson/cardiology
-resolved
-Cardiology is following, appreciate input
-Echocardiogram- 07/08-Normal LV size. Mild LVH. Normal LV systolic function. Estimated LVEF 65-70%. Mild/moderate tricuspid regurgitation. Estimated pulmonary artery pressure of 45 mmHg assuming a right atrial pressure of 8 mmHg. Mild/moderately
elevated PASP.
-transition to PO Lasix as cr increasing
-Continue metoprolol
-Will monitor
#DENNYS on CKD3a
-Creatinine starting to creep up again
-No prior studies available
-repeat BMP in am
#Essential hypertension
-Continue Cardura and metoprolol
-stable, monitor
#Permanent atrial fibrillation
-On Eliquis at home, holding in anticipation of thoracentesis
-Will resume home dose after repeat thoracentesis
#Hypercholesterolemia
-Continue home atorvastatin
#Type II diabetes mellitus
-uncontrolled in hospital
-[id number]-4.7
-Continue Farxiga 10mg, Actos 30mg
-Hold Metformin and trulicity (GLP-1)
-increase to mod dose SSI
#PN- cont gabapentin
#GERD- cont Protonix
CODE-FULL
[id number] hold for vic
Dispo eventual DC home with home care next 24-48 hours
ACP
Patient consented to discuss, was with son/POA, time spent explanation of advance directives, changes in health status, patient�s health care wishes if the patient becomes unable to make health decisions, goals of care, code status, and
prognosis-'yes of course she would want everything but if she has cancer dont tell her'- 16 minutes
Time spent coordinating care, review of plan of care with resident, personally reviewed previous records in EMR, med rec, labs, radiology, d/w nursing, family total time documented is exclusive of any additional time listed that was spent in advance
care planning discussion -�52 minutes
Original Note:
Today's Communication/Plan
-
CT scan today
Echo today
Increased Insulin sliding scale to moderate
Assessment / Plan
Assessment / Plan
Assessment
This is an 85 y/o female with pmhx of essential hypertension, permanent atrial fibrillation on Eliquis 5mg BID, hypercholesterolemia and type II diabetes mellitus who presented to the ED on 07/05/2025 with ongoing shortness of breath for several
weeks due to left sided pleural effusion found on outpatient X-ray.
Plan
Acute Hypoxic Respiratory Failure, resolving
Symptomatic Left Sided Pleural Effusion
-As noted on X-ray in the ED: Dense opacification of the majority of the left lung favored to represent a combination of large pleural fluid, and atelectasis and/or pneumonia. A small portion of the left upper lob remains aerated. Imaging follow up
recommended as underlying mass would be difficult to exclude. The cardiac silhouette is enlarged. Moderate thoracic dextroscoliosis.
-S/p IR thoracentesis 07/06/2025 with 1.5L removed. Follow up X-ray showed moderate to large left sided pleural effusion.
--Cytology of thoracentesis revealed pH 7.44, WBC 302 Glucose 160, T protein 4, LDH 96. Serum LDH 193, serum total protein 6.5. Suspect exudative per Light's criteria
-CT scan completed today, will follow up on results
-Continue to hold home Eliquis 5mg BID until after CT scan results in the event there is actionable results revealed on image.
-Will reevaluate symptoms daily
-Will monitor
Acute on Chronic HFpEF
-Patient is a known patient of Dr. Henson for cardiology
-BNP on 07/05 was 1560
-Cardiology is following, will appreciate their insight into her case
-Echocardiogram has been ordered, scheduled for 07/08
-Continue IV Lasix 40mg BID today with goal to resume oral medication
-Continue metoprolol 50mg QD
-Will monitor
Heartburn - Resolved
-Chronic
-Suspect could be secondary to her potassium supplement as it is a known irritant
-Continue Pantoprazole 40mg QD
-Will monitor
Acute Kidney Injury - Resolved
-Creatinine on 07/05 was elevated at 1.3, returned to 1.0 on 07/06, though creatinine is now increasing again to 1.2
-No prior studies available
-Will monitor
Essential hypertension
-Continue Nicky 8mg, 50mg QD
-Will monitor
Permanent atrial fibrillation
-On Eliquis 5mg BID at home, holding in anticipation of thoracentesis
-Will resume home dose of 5mg BID after CT is performed
Hypercholesterolemia
-Continue home atorvastatin
Type II diabetes mellitus
-Continue Farxiga 10mg, Actos 30mg
-Hold Metformin
-Increase sliding scale to moderate dose given increased blood sugars at this admission. Most recent a1c during this admission was 6.7%
-Continue insulin sliding scale
History of Left Sided Breast Cancer
-By daughter's report, does not currently follow with oncologist. Will need to discuss with patient further to find out where she received treatment and when, although this seems to be a more remote history.
-Of note, current pleural effusion is also on the left side
-Continue plan for CT Chest today with contrast
-Will monitor
Anticipated Discharge: 24 - 48 hours
Subjective/Interval History
-
Date of Service: July 08, 2025
[employer] upholstery repairer gabriele was used for senior medical transcriptionist services. Krzysztof KEVIN was providing the translations
Patient reports she feels very good today. She denies any shortness of breath, chest pain, wheezing or pain. She does report that yesterday she had some blue tint in her vision, which she did not want to tell me about at the time, but mentions it
today. She does not currently have any of this blue tint today, as it went away yesterday after a few minutes. She states this is chronic, comes and goes, and has happened for her for many months and probably is related to the weather. It is
sometimes accompanied by watery eyes but is not painful and does not cause any loss of vision.
Her granddaughter tells me she has not heard of her grandmother complaining of this blue fogginess before. She follows with an eye doctor ([facility], Dr. Miranda) who she saw most recently in March of this year. She reports her grandmother is less
confused today than yesterday, but has still not returned to her previous health just prior to admission.
Her granddaughter also clarified her iodine allergy to me. She states that many years ago in the [place], Puja had an anaphylactic reaction to iodine preparation used for surgery. She has, since that time, had several CT scans and MRIs with
contrast without steroid preparation, and not had any reaction. Her granddaughter did mention that Puja has a history of left-sided breast cancer many years ago, but does not currently follow with an oncologist.
Objective Data
-
Labs:
Laboratory Results
07/08/25
06:00
WBC Pending
Hgb Pending
Hct Pending
Plt Count Pending
Sodium Pending
Potassium Pending
Chloride Pending
Carbon Dioxide Pending
BUN Pending
Creatinine Pending
Glucose Pending
Calcium Pending
Vital Signs:
Vital Signs
Temp Pulse Resp BP Pulse Ox
97.4 F 111 22 141/76 93
07/08/25 03:00 07/08/25 03:00 07/08/25 03:00 07/08/25 03:00 07/08/25 03:00
I&O
07/07/25 07/08/25 07/09/25
06:59 06:59 06:59
Intake Total 480 / 480
Balance 480 / 480
Physical Exam
-
General: Well Developed, Well Nourished, No Apparent Distress and Comfortable
HEENT: Normocephalic and Atraumatic
Cardiac: S1/S2 and Irregular Rhythm
[2025-07-08 08:38] LABS: Hematocrit 38.4 % (37.0-47.0); Hemoglobin 12.5 g/dL (12.0-16.0); Mean Corp Hgb Conc. 32.6 g/dL (33.0-37.0); Mean Corpuscular Volume 84.2 fL (81.0-99.0); Platelet Count 208 10^3/uL (130-400); Red Cell Dist. Width 15.9 % (11.5-14.5)
[2025-07-08] MEDS: PROTONIX 40 MG PO (08:45)
[2025-07-08] MEDS: NEURONTIN 100 MG PO ×3 (08:45→21:37)
[2025-07-08] MEDS: KCL 10 MEQ PO (08:45)
[2025-07-08] MEDS: FARXIGA 10 MG PO (08:45)
[2025-07-08] MEDS: ACTOS 30 MG PO (08:45)
[2025-07-08] MEDS: TOPROL XL 50 MG PO ×2 (08:46→12:30)
[2025-07-08] MEDS: NON-FORMULARY ITEM 2 % TOPICAL (08:47)
[2025-07-08] MEDS: CARDURA 8 MG PO (08:47)
[2025-07-08 08:48] LABS: Glucose - Point of Care 255 mg/dl (70-99)
[2025-07-08] MEDS: DICLOFENAC 1% TOPICAL GEL 100 GRAM TOPICAL ×2 (08:48→21:37)
[2025-07-08] MEDS: LASIX 80 MG IV (08:49)
[2025-07-08] MEDS: BENADRYL 50 MG PO (08:51)
[2025-07-08] MEDS: NOVOLOG FLEXPEN-LOW RESISTANCE 3 UNITS SC ×2 (08:52→12:28)
--- NOTE | 2025-07-08 09:55 | W.PN.CD ---
Addendum entered and electronically signed by Tony El MD 07/08/25 10:11:
Labs resulted with creatinine 1.2, sodium 133. Will switch IV to p.o. Lasix. Symptoms have dramatically improved after thoracentesis so I suspect her SOB was more related to pleural effusion than pulmonary edema.
Original Note:
Today's Communication / Plan
-
CT chest and echocardiogram today
Possible repeat thoracentesis pending chest CT results
Continue twice daily IV diuresis
Increase metoprolol to 100 mg daily
Resume Eliquis after procedures
Impression / Plan
-
SOB with L pleural effusion:
-CXR abnormal: Dense opacification of the majority of the left lung favored to represent a combination of large pleural fluid, and atelectasis and/or pneumonia. A small portion of the left upper lobe remains aerated. Imaging follow-up is
recommended as an underlying mass would be difficult to exclude. The cardiac silhouette is enlarged.
-pulmonary is consulted
-s/p thoracentesis 1500 cc on 07/06 with plan for repeat 07/08
-CT chest after thoracenteses
-also with CHF as below
Hroey-vf-dbudypi HFpEF:
-severe exacerbation requiring IV diuresis and close monitoring of labs/telemetry
-update echo today
-on SGLT2I
-continue IV Lasix 80mg BID
-she has orthopnea. 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 LE edema noted, but she reports chronic. BNP 1520.
Permanent AFIB:
-HRs still high; increase metoprolol to 100 mg daily (home dose was 12.5 mg twice daily)
-Eliquis held for thoracentesis- Of note, her correct dose is 5 mg PO BID- so this is the dose that should be resumed when safe.
HTN:
-on Doxazosin, metoprolol, ARB/HCTZ as OP
-monitor with med adjustments
Subjective: Breathing dramatically improved s/p thoracentesis
Physical Exam
Vital Signs/Labs
Vital Signs
Temp Pulse Resp BP Pulse Ox
97.4 F 101 18 112/70 98
07/08/25 08:00 07/08/25 08:49 07/08/25 08:00 07/08/25 08:49 07/08/25 08:00
07/07/25 07/08/25 07/09/25
06:59 06:59 06:59
Actual Weight 182 lb 6.4 oz 186 lb 3 oz
07/08/25 07:52
PT 16.3 Sec (11.4-14.6) H 07/06/25 08:03
INR 1.29 07/06/25 08:03
07/05/25
15:28
Jhj-F-Wxuinriiran Pept 1560
Physical Exam
Constitutional: No acute distress and Comfortable
Cardiovascular: Rhythm/rate is irregular, S1S2 is normal and Murmur/rub/gallop absent
Respiratory: Respiratory effort normal and Other (decreased breath sounds on L )
Neuro/Psych: AO x 3
Data Reviewed
-
Date of Service: July 08, 2025
Medical Decision Making: Reviewed Test Results, Independent Historian Assessment, Test Interpretation and Review of Case with other Provider
EKG: Tracing Personally Visualized and interpreted
X-Ray/CT/US/MRI/NUC/PET: Report Reviewed by me
Labs: Labs Reviewed by me
[2025-07-08 09:56] LABS: Blood Urea Nitrogen 36 mg/dl (7-17); Calcium 8.7 mg/dl (8.4-10.2); Carbon Dioxide 19 mmol/L (22-30); Chloride 103 mmol/L (98-107); Estimated Creatinine Clearance 35 ml/min; Glucose 266 mg/dl (70-99); Potassium 4.6 mmol/L (3.5-5.1); Sodium 133 mmol/L (135-145); eGFR 44.08
--- NOTE | 2025-07-08 11:21 | W.PN.PUL3 ---
Today's Communication / Plan
-
Follow ECHO
Cont. diuresis- now PO
follow official CT chest results.
Follow pleural fluid cytology.
Will plan for repeat thoracentesis tomorrow 07/09/2025.
Will follow.
Assessment
-
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
left-sided pleural effusion. Patient had recently seen photovoltaic panel installer, Dr. Henson, on 06/29/2025 complaining of SOB. She was recently admitted to [facility] with retrosternal chest pain, found to be in new onset A-fib treated medically
and started on Eliquis and metoprolol. She still endorsed chest discomfort with radiation to LUE/left-sided shoulder. CXR was ordered at that office visit, and performed on 07/05 showing a large left-sided pleural effusion. No prior imaging
available for comparison. In the ER she was afebrile with pulse rate 110, breathing at 20 breaths/min, BP 153/82 and saturating 98% on room air. Labs showed normal WBC at 10.6, Hb 12.6, platelets 233, creatinine 1.3, and proBNP 1560. Patient
admitted to telemetry with cardiology consulted. Pulmonary service also consulted for additional management/recommendations.
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
Impression:
#Left-sided unilateral pleural effusion (no prior imaging available for comparison purposes to assess chronicity) � likely due to acute decompensated heart failure; s/p L-sided thoracentesis 07/06/2025
#DENNYS versus CKD
#Acute on chronic HFpEF
#Permanent A-fib
#Dyslipidemia
#Hypertension
#DM type II
Plan:
- Large left-sided pleural effusion on CXR on 07/05; she was recently admitted at [facility] and unclear if she had a pleural effusion at that time.
- She is Rx lasix and was recently increased from 40 mg once a day to 40 mg twice a day at recent cardiology office visit on 07/03
- She had 1.5 L of straw-colored pleural fluid removed on 07/06 -pH 7.44, WBC 302 which is monocyte predominant, glucose 160, T protein 4, LDH 96; believe that this is pseudo-exudative in the setting of diuresis
- Follow-up cytopathology + pleural fluid culture- pending.
- CT chest imaging is ordered from primary team: done 07/08/2025 - persistent mod-large effusion- I do not appreciate central airway obstruction or lung mass. Official report pending.
- Check echo- Pending.
- Recent Lexiscan stress test on 04/03 showed preserved LVEF at 62% and negative EKG for ischemia with normal Lexiscan nuclear stress test
- Sodium and fluid restriction- diurese
- daily weight.
- Will plan for repeat thoracentesis - tomorrow as is still persistent on imaging.
- She has no WBC nor is she febrile --> monitor off ABx
- Trend WBC and monitor temperature curve
- Pt remains in paroxysmal A-fib
- Rate control is hamilton with goal <110
- Replete electrolytes with K>4, Mg>2
- Continue Eliquis and BB
- Cardiology on board- now on PO diuresis.
- Renally dose all meds and trend sCr; strict I/O
- Incentive spirometer encouraged q1hr while awake
- DVT ppx: Eliquis
Pulmonary service will continue to follow along.
Data:
CXR 07/05/2025:
Dense opacification of the majority of the left lung favored to represent a combination of large pleural fluid, and atelectasis and/or pneumonia. A small portion of the left upper lobe remains aerated. Imaging follow-up is recommended as an
underlying mass would be difficult to exclude.
No pneumothorax.
The cardiac silhouette is enlarged.
Moderate thoracic dextroscoliosis.
Total time spent today was 35 minutes for this encounter. Time includes reviewing laboratory test/imaging results, reviewing pertinent medical records, obtaining and reviewing medical history, performing an appropriate exam, ordering medications,
tests and procedures. Time also includes documentation of this encounter, coordinating patient care and communicating with other healthcare professionals. Total time does not include separately billed tests performed on this date of service.
Subjective Data
-
Date of Service:
Date of Service: July 08, 2025
Chief Complaint: Pulmonary Follow Up
Review of Systems
General: Fever (n)
Cardiopulmonary: Dyspnea, Dyspnea on Exertion and Cough (n)
GI: Abdominal Pain (n)
Objective Data
Data Reviewed
Vital Signs / I&O / Oxygen:
Vital Signs
Temp Pulse Resp BP Pulse Ox
97.4 F 101 18 112/70 98
07/08/25 08:00 07/08/25 08:49 07/08/25 08:00 07/08/25 08:49 07/08/25 08:00
Intake and Output
07/07/25 07/08/25 07/09/25
06:59 06:59 06:59
Intake Total 480 / 480
Balance 480 / 480
SaO2 98
Nasal Cannula flow liters per 2
minute
Physical Exam
General: Respiratory Distress (negative), Comfortable, Chills (n) and Sweats (n)
HEENT: Normocephalic and Anicteric
Cardiovascular: Irregular Rhythm and Peripheral Edema (trace LE edema b/l)
Respiratory: Wheeze (n), Crackles (left middle lung field), Rhonchi (n) and Other (diminished BS at left base-left middle lung field)
GI: Soft, Non Distended, Non Tender and Normal Bowel Sounds
Neurology: Awake, Alert and Tremors (n)
Skin: Warm, Dry, Cyanosis (n) and Jaundice (n)
Labs/Micro/Reports
Lab Data
07/08/25 07:52
07/08/25 07:52
Microbiology
07/06/25 14:33 Pleural Fluid Body Fluid Culture - Preliminary
No Growth After 18-24 Hours
07/06/25 14:33 Pleural Fluid Gram Stain - Preliminary
[2025-07-08 12:24] LABS: Glucose - Point of Care 265 mg/dl (70-99)
--- NOTE | 2025-07-08 12:27 | CM ---
Chart reviewed. Status post IR thoracentesis 07/06.
CT chest and echocardiogram today
Therapy rec home PT at d/c. Per chart, instructions to send referral to [facility]. CM called [facility], spoke w/ referral intake, patient recently was discharged from services. Requesting referral to be faxed to [phone].
[facility]
6
Plan: Home w/ [facility]
[2025-07-08] MEDS: DICLOFENAC 1% TOPICAL GEL TOPICAL (14:16)
[2025-07-08 17:12] LABS: Glucose - Point of Care 361 mg/dl (70-99)
[2025-07-08] MEDS: NOVOLOG FLEXPEN-MODERATE RESISTANCE 9 UNITS SC (17:45)
[2025-07-08] MEDS: TYLENOL 650 MG PO (17:46)
[2025-07-08] MEDS: DICLOFENAC 1% TOPICAL GEL 1 GRAM TOPICAL (17:46)
--- NOTE | 2025-07-08 18:12 | PTCARENOTE ---
Dinner time blood glucose 361. Per moderate sliding scale, patient to receive 9 units. This RN did reach out to Dr Urban, to verify dosage in case MD wanted additional coverage. Per MD, since we just increased patient's scale from low to
moderate, MD does not want patient's blood glucose to bottom out; thus, recheck blood glucose in 2 hours and if blood glucose still elevated, will adjust insulin coverage accordingly.
[2025-07-08] MEDS: LIPITOR 10 MG PO (21:37)
[2025-07-08 21:42] LABS: Glucose - Point of Care 357 mg/dl (70-99)
[2025-07-08] MEDS: NOVOLOG FLEXPEN 10 UNITS SC (22:39)
[2025-07-09] VITALS (8 sets, daily range): BP systolic 79–129; BP diastolic 39–83; BMI 32.7
[2025-07-09 02:23] LABS: Glucose - Point of Care 318 mg/dl (70-99)
--- NOTE | 2025-07-09 07:21 | W.PN.HOSP.TC ---
Addendum entered and electronically signed by Ry Mccollum MD 07/09/25 18:04:
Attending Addendum-
I saw and evaluated the patient. I reviewed the resident�s note and agree with findings and plan as documented in the resident�s note. Sub: patient complains of intermittent blurry vision correlating with elevated sugars. feels greatly improved.
patient denies SOB or GARCIA CP palps fevers chills. Full 12 point ROS reviewed and negative except as documented Exam: Vitals reviewed in chart GEN-NAD heart irreg irreg lungs decreased BS LLL abd soft LE trace edema
Plan:
#Acute Hypoxic Respiratory Failure-resolved
#Symptomatic Left Sided Pleural Effusion
-s/p IR thoracentesis 07/06-1.5L
-cytology-P, exudate therefore not due to CHF
-CT chest-07/08
1. MODERATE to LARGE LEFT PLEURAL EFFUSION.
2. Severe compressive atelectasis of the basilar segments of the left lower lobe.
3. Moderate centrilobular ground-glass opacity in the left upper lobe and superior segment of the left lower lobe. Diagnostic possibilities are (1) reexpansion pulmonary edema in the setting of a recent left thoracentesis or (2) pneumonia (if
there are signs/symptoms of pulmonary infection).
4. Severe calcific atherosclerotic plaque in the coronary arteries.
5. Fusiform ascending thoracic aortic aneurysm (4.0 cm diameter).
6. Mild mediastinal lymphadenopathy.
7. Previous left breast lumpectomy.
8. 2.3 cm right lower pole thyroid nodule.
9. Chronic vertebral body endplate fractures of T11 and T12.
10. Moderate to severe right convex curvature of the midthoracic spine.
-repeat thoracentesis today
-CTM
#Acute on Chronic HFpEF
-Patient is a known patient of Dr. Henson/cardiology
-resolved
-Cardiology is following, appreciate input
-Echocardiogram- 07/08-Normal LV size. Mild LVH. Normal LV systolic function. Estimated LVEF 65-70%. Mild/moderate tricuspid regurgitation. Estimated pulmonary artery pressure of 45 mmHg assuming a right atrial pressure of 8 mmHg. Mild/moderately
elevated PASP.
-hold Lasix as cr increasing
-Continue metoprolol
-Will monitor
#DENNYS on CKD3a
-worsening
-could have JERAMIE component
- hold lasix
-repeat BMP in am
# Hyponatremia
- appears euvolemic
- start fluid restrict
- CTM repeat BMP in am
#Essential hypertension
-Continue Cardura and metoprolol
-stable, monitor
#Permanent atrial fibrillation
-restart Eliquis post thoracentesis
#Hypercholesterolemia
-Continue home atorvastatin
#Type II diabetes mellitus
-uncontrolled due to steroids
-OFD5o-0.7
-Continue Farxiga 10mg, Actos 30mg
-Holding Metformin and trulicity (GLP-1)
-cont mod dose SSI
-add novolog 5 premeal
#PN- cont gabapentin
#GERD- cont Protonix
CODE-FULL
DVTp-eliquis restart
Dispo DC home with home care next 24-48 hours
Time spent coordinating care, review of plan of care with resident, personally reviewed records in EMR, med rec, consults, notes, labs, radiology, d/w nursing cards� 53 mins
Original Note:
Today's Communication/Plan
-
Start eliquis 2.5mg following thoracentesis
Assessment / Plan
Assessment / Plan
Assessment
This is an 85 y/o female with pmhx of essential hypertension, permanent atrial fibrillation on Eliquis 5mg BID, hypercholesterolemia and type II diabetes mellitus who presented to the ED on 07/05/2025 with ongoing shortness of breath for several
weeks due to left sided pleural effusion found on outpatient X-ray.
Plan
Acute Hypoxic Respiratory Failure, resolving
Symptomatic Left Sided Pleural Effusion
-As noted on X-ray in the ED: Dense opacification of the majority of the left lung favored to represent a combination of large pleural fluid, and atelectasis and/or pneumonia. A small portion of the left upper lob remains aerated. Imaging follow up
recommended as underlying mass would be difficult to exclude. The cardiac silhouette is enlarged. Moderate thoracic dextroscoliosis.
-S/p IR thoracentesis 07/06/2025 with 1.5L removed. Follow up X-ray showed moderate to large left sided pleural effusion.
--Cytology of thoracentesis revealed pH 7.44, WBC 302 Glucose 160, T protein 4, LDH 96. Serum LDH 193, serum total protein 6.5. Suspect exudative per Light's criteria
-CT scan completed today, will complete thoracentesis today with repeat analysis + cytology
-Continue to hold home Eliquis 5mg BID until after thoracentesis today, at which point it will be resumed at 2.5mg given creatinine today
-Will reevaluate symptoms daily
-Will monitor
Acute Kidney Injury
-Patient with DENNYS on admission that had inititally resolved, but Creatinine today increased to 1.6, likely secondary to IV Lasix
-Plan in place already to hold IV Lasix and transition to oral Lasix tomorrow
-Will plan to monitor creatinine tomorrow
Acute on Chronic HFpEF
-Patient is a known patient of Dr. Henson for cardiology
-BNP on 07/05 was 1560
-Cardiology is following, will appreciate their insight into her case
-Echocardiogram completed on 07/08 showed preserved ejection fraction
-HOLD IV Lasix 40mg BID today with goal to resume oral medication tomorrow
-Continue metoprolol 50mg QD
-Will monitor
Heartburn - Resolved
-Chronic
-Suspect could be secondary to her potassium supplement as it is a known irritant
-Continue Pantoprazole 40mg QD
-Will monitor
Essential hypertension
-Continue Nicky 8mg, 50mg QD
-Will monitor
Permanent atrial fibrillation
-On Eliquis 5mg BID at home, will resume following thoracentesis
Hypercholesterolemia
-Continue home atorvastatin
Type II diabetes mellitus
-Continue Farxiga 10mg, Actos 30mg
-Hold Metformin
-Increase sliding scale to moderate dose given increased blood sugars at this admission. Most recent a1c during this admission was 6.7%
-Continue insulin sliding scale, now moderate dose
History of Left Sided Breast Cancer
-By daughter's report, does not currently follow with oncologist. Will need to discuss with patient further to find out where she received treatment and when, although this seems to be a more remote history and s/p lumpectomy
-Of note, current pleural effusion is also on the left side
-Will monitor
Anticipated Discharge: Within 24 hours
Subjective/Interval History
-
Date of Service: July 09, 2025
[employer] service desk specialist gabriele was used for medical translation. La Nena [id number], was providing the translation.
Patient reports she is doing well today. She is breathing well and is ready for her second thoracentesis today. She denies shortness of breath or cough. She denies any acute changes in her vision including blue tint mentioned the other day.
Objective Data
-
Labs:
Laboratory Results
07/09/25
06:00
WBC Pending
Hgb Pending
Hct Pending
Plt Count Pending
Sodium Pending
Potassium Pending
Chloride Pending
Carbon Dioxide Pending
BUN Pending
Creatinine Pending
Glucose Pending
Calcium Pending
Vital Signs:
Vital Signs
Temp Pulse Resp BP Pulse Ox
97.9 F 83 18 100/83 94
07/09/25 03:00 07/09/25 03:00 07/09/25 03:00 07/09/25 03:00 07/09/25 03:00
I&O
07/08/25 07/09/25 07/10/25
06:59 06:59 06:59
Intake Total 180 / 180
Balance 180 / 180
Review of Systems
-
History Source: Patient
Constitutional: Denies Fever or Chills
Respiratory: Denies Cough or Trouble Breathing
Cardiac: Denies Chest Pain
Abdomen/GI: Denies Abdominal Pain, Nausea, Vomiting, Diarrhea or Constipated
Musculoskeletal: Reports Edema (Chronic, no more than usual)
Neuro: Denies Dizzy, Headache or Weakness
Physical Exam
-
General: Well Developed, Well Nourished, No Apparent Distress and Comfortable
HEENT: Normocephalic and Atraumatic
Respiratory: Clear to Auscultation (Right side, left upper/middle lobes only) and Decreased Breath Sounds (Left lower lobe)
Cardiac: S1/S2 and Irregular Rhythm
GI: Soft, Nontender, Nondistended and Normal Bowel Sounds
Musculoskeletal: Edema, Right Lower Extrem (1+), Edema, Left Lower Extrem (1+) and Other (Lidocaine patches bilateral lower extremities)
Skin: Warm and Dry
Neuro: Awake and Alert
Psych: Calm and Intact Judgement/Insight
[2025-07-09] MEDS: KCL 10 MEQ PO (07:44)
[2025-07-09] MEDS: NEURONTIN 100 MG PO ×3 (07:44→21:42)
[2025-07-09] MEDS: PROTONIX 40 MG PO (07:44)
[2025-07-09] MEDS: DICLOFENAC 1% TOPICAL GEL 100 GRAM TOPICAL (07:45)
[2025-07-09] MEDS: ACTOS 30 MG PO (07:45)
[2025-07-09] MEDS: FARXIGA 10 MG PO (07:45)
[2025-07-09] MEDS: NON-FORMULARY ITEM 5 % TOPICAL (07:46)
[2025-07-09] MEDS: CARDURA 8 MG PO (07:51)
[2025-07-09] MEDS: TOPROL XL 100 MG PO (07:52)
[2025-07-09 07:53] LABS: Glucose - Point of Care 289 mg/dl (70-99)
[2025-07-09 08:09] LABS: Hematocrit 37.6 % (37.0-47.0); Hemoglobin 12.9 g/dL (12.0-16.0); Mean Corp Hgb Conc. 34.3 g/dL (33.0-37.0); Mean Corpuscular Volume 84.1 fL (81.0-99.0); Platelet Count 229 10^3/uL (130-400); Red Cell Dist. Width 15.6 % (11.5-14.5)
[2025-07-09 08:29] LABS: Blood Urea Nitrogen 46 mg/dl (7-17); Calcium 8.9 mg/dl (8.4-10.2); Carbon Dioxide 22 mmol/L (22-30); Chloride 99 mmol/L (98-107); Estimated Creatinine Clearance 27 ml/min; Glucose 293 mg/dl (70-99); Potassium 4.5 mmol/L (3.5-5.1); Sodium 130 mmol/L (135-145); eGFR 31.21
[2025-07-09] MEDS: NOVOLOG FLEXPEN-MODERATE RESISTANCE 5 UNITS SC ×2 (08:42→12:37)
[2025-07-09 09:33] LABS: LDH 166 U/L (120-246); Total Protein 6.2 g/dl (6.3-8.2)
--- NOTE | 2025-07-09 10:38 | W.PN.CD ---
Addendum entered and electronically signed by Pineda Khalil MD 07/09/25 14:24:
I saw and evaluated the patient, and I provided the substantive portion of the medical decision making.
I reviewed and agree with the note by Ms Pereyra and it accurately reflects our care.
I personally performed the medical decision making of the this encounter and my assessment and plan is below:
Hold lasix for DENNYS
Vision issues discussed wt primary team; known and ongoing
Original Note:
Today's Communication / Plan
-
A knitter hand was used for this consultation
Hold furosemide with DENNYS
For thoracentesis today
Impression / Plan
-
I/P: 85F with type 2 DM, hypertension, dyslipidemia, HFpEF, permanent AFIB on Eliquis who is here for evaluation of 1 week of fatigue, weakness, 'feeling of choking in her throat', and SOB. SOB worse with laying and bending over.
Primary diving coach: Dr. Henson
SOB in the setting of L pleural effusion:
- s/p thoracentesis 1500mL 07/06 -> thoracentesis today pending
- HFpEF plan as below
- Pulmonary following
Nhlir-ci-dixmybr HFpEF, severe requiring hospitalization
- She was diuresed with intravenous furosemide which required intensive monitoring
- on SGLT2i, continue
- Furosemide on hold with DENNYS, HCTZ stopped on admission
Permanent atrial fibrillation:
- HRs improved; continue metoprolol to 100 mg daily (home dose was 12.5 mg twice daily)
- Oral anticoagulation: Apixaban 5 mg twice daily, currently on hold with thoracentesis, if creatinine is equal to or >1.5 tomorrow, decrease to 2.5 mg twice daily as she is 85 years old
DENNYS
- Likely due to multiple fluid shifts with diuresis and thoracentesis, BMP in a.m.
HTN:
- on Doxazosin, metoprolol, ARB/HCTZ at admission
DATA:
Transthoracic echocardiogram, 07/08/2025:
SUMMARY
1. Normal LV size. Mild LVH. Normal LV systolic function. Estimated LVEF 65-70%.
2. Mild/moderate tricuspid regurgitation. Estimated pulmonary artery pressure of 45 mmHg assuming a right atrial pressure of 8 mmHg. Mild/moderately elevated PASP.
3. There is evidence of pleural effusion.
4. No prior study available for comparison.
Physical Exam
Vital Signs/Labs
Vital Signs
Temp Pulse Resp BP Pulse Ox
98.2 F 88 17 129/59 94
07/09/25 07:53 07/09/25 07:53 07/09/25 07:53 07/09/25 07:53 07/09/25 07:53
07/08/25 07/09/25 07/10/25
06:59 06:59 06:59
Actual Weight 84.453 kg 86.268 kg
07/09/25 07:44
07/09/25 07:44
PT 16.3 Sec (11.4-14.6) H 07/06/25 08:03
INR 1.29 07/06/25 08:03
07/05/25
15:28
Eru-[id number] Pept 1560
Physical Exam
Constitutional: No acute distress
EENT: Anicteric and Moist mucous membranes
Cardiovascular: Rhythm/rate is irregular and S1S2 is normal
Respiratory: Respiratory effort normal and Lungs clear to auscul.
GI: Soft, Distention absent, Flat, Non tender and Normal bowel sounds
Neuro/Psych: Alert and Oriented
Other: Skin (Warm and dry)
Data Reviewed
-
Date of Service: July 09, 2025
Labs: Labs Reviewed by me
Old Records: Reviewed
[2025-07-09 11:46] LABS: Glucose - Point of Care 263 mg/dl (70-99)
--- NOTE | 2025-07-09 11:54 | PTCARENOTE ---
patient back from thoracentesis, complaining of squeezing, right sided chest pain. cardiology at bedside. EKG completed. Suspected pleuritic pain post procedure.
--- NOTE | 2025-07-09 12:08 | W.PN.PUL3 ---
Today's Communication / Plan
-
Continue oral diuresis
Continue cardiac management
Follow chest x-ray postthoracentesis
Clinically improved
Outpatient pulmonary follow-up
No additional inpatient recommendations
Sign off
Assessment
-
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
left-sided pleural effusion. Patient had recently seen microsoft architect, Dr. Henson, on 06/29/2025 complaining of SOB. She was recently admitted to [facility] with retrosternal chest pain, found to be in new onset A-fib treated medically
and started on Eliquis and metoprolol. She still endorsed chest discomfort with radiation to LUE/left-sided shoulder. CXR was ordered at that office visit, and performed on 07/05 showing a large left-sided pleural effusion. No prior imaging
available for comparison. In the ER she was afebrile with pulse rate 110, breathing at 20 breaths/min, BP 153/82 and saturating 98% on room air. Labs showed normal WBC at 10.6, Hb 12.6, platelets 233, creatinine 1.3, and proBNP 1560. Patient
admitted to telemetry with cardiology consulted. Pulmonary service also consulted for additional management/recommendations.
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
Impression:
#Left-sided unilateral pleural effusion (no prior imaging available for comparison purposes to assess chronicity) � likely due to acute decompensated heart failure; s/p L-sided thoracentesis 07/06/2025
#DENNYS versus CKD
#Acute on chronic HFpEF
#Permanent A-fib
#Dyslipidemia
#Hypertension
#DM type II
Plan:
- Large left-sided pleural effusion on CXR on 07/05; she was recently admitted at [facility] and unclear if she had a pleural effusion at that time.
- Status post IV diuresis-transition to oral Lasix.
- She had 1.5 L of straw-colored pleural fluid removed on 07/06 -pH 7.44, WBC 302 which is monocyte predominant-suggesting chronicity, glucose 160, T protein 4, LDH 96; believe that this is pseudo-exudative in the setting of diuresis.
- Follow-up cytopathology + pleural fluid culture-negative.
- CT chest imaging is ordered from primary team: done 07/08/2025 - persistent mod-large effusion- I do not appreciate central airway obstruction or lung mass. Official report pending.
- Check echo-mild LVH. Normal LVEF. Mild to moderate TR. Estimated pulmonary pressure 45 mmHg. No pericardial effusion.
- Recent Lexiscan stress test on 04/03 showed preserved LVEF at 62% and negative EKG for ischemia with normal Lexiscan nuclear stress test
Clinically improved. Symptoms significantly improved after thoracentesis.
Repeat thoracentesis 07/09/2025-therapeutic.
Recommend outpatient radiographic follow-up in the next 4 to 6 weeks.
- She has no WBC nor is she febrile --> monitor off ABx
- Culture negative
- Trend WBC and monitor temperature curve
- Atrial fibrillation
- Rate improved
- Continue Eliquis and BB
- Cardiology on board- now on PO diuresis.
-Chronic kidney disease
- Renally dose all meds and trend sCr; strict I/O
- Incentive spirometer encouraged q1hr while awake
- DVT ppx: Eliquis
Given clinical improvement, from the pulmonary perspective no additional recommendation. Cytology and cultures negative.
Will recommend outpatient pulmonary follow-up in the next 3 to 4 weeks with chest x-ray, to document radiographic clearance of pleural effusion.
If there is recurrence of pleural effusion then further evaluation will be necessary including: Flow cytometry, rheumatologic evaluation etc. Repeating CT of the chest once fluid is completely drained.
Hopefully discharge planning soon.
Data:
CXR 07/05/2025:
Dense opacification of the majority of the left lung favored to represent a combination of large pleural fluid, and atelectasis and/or pneumonia. A small portion of the left upper lobe remains aerated. Imaging follow-up is recommended as an
underlying mass would be difficult to exclude.
No pneumothorax.
The cardiac silhouette is enlarged.
Moderate thoracic dextroscoliosis.
Subjective Data
-
Date of Service:
Date of Service: July 09, 2025
Chief Complaint: Pulmonary Follow Up
Subjective:
Clinically improved
Shortness of breath mostly resolved
Review of Systems
General: Fever (n)
Cardiopulmonary: Dyspnea (Improved) and Cough (n)
GI: Abdominal Pain (n)
Objective Data
Data Reviewed
Vital Signs / I&O / Oxygen:
Vital Signs
Temp Pulse Resp BP Pulse Ox
97.3 F 74 14 91/51 98
07/09/25 11:35 07/09/25 11:35 07/09/25 11:35 07/09/25 11:35 07/09/25 11:35
Intake and Output
07/08/25 07/09/25 07/10/25
06:59 06:59 06:59
Intake Total 180 / 180
Balance 180 / 180
SaO2 98
Nasal Cannula flow liters per 2
minute
Physical Exam
General: Respiratory Distress (negative), Comfortable, Chills (n) and Sweats (n)
HEENT: Normocephalic and Anicteric
Cardiovascular: Irregular Rhythm and Peripheral Edema (trace LE edema b/l)
Respiratory: Wheeze (n), Crackles (left middle lung field), Rhonchi (n) and Other (Improved aeration in the left lung.)
GI: Soft, Non Distended, Non Tender and Normal Bowel Sounds
Neurology: Awake, Alert and Tremors (n)
Skin: Warm, Dry, Cyanosis (n) and Jaundice (n)
Labs/Micro/Reports
Lab Data
07/09/25 07:44
07/09/25 07:44
Microbiology
07/06/25 14:33 Pleural Fluid Body Fluid Culture - Final
No Growth After 72 Hours
07/06/25 14:33 Pleural Fluid Gram Stain - Final
[2025-07-09 12:31] LABS: Body Fluid Second Tech ASW
[2025-07-09] MEDS: DICLOFENAC 1% TOPICAL GEL TOPICAL (13:37)
[2025-07-09 17:15] LABS: Glucose - Point of Care 223 mg/dl (70-99)
[2025-07-09] MEDS: NOVOLOG FLEXPEN 5 UNITS SC (17:16)
[2025-07-09] MEDS: NOVOLOG FLEXPEN-MODERATE RESISTANCE 3 UNITS SC (17:16)
[2025-07-09] MEDS: DICLOFENAC 1% TOPICAL GEL 1 GRAM TOPICAL ×2 (17:17→21:42)
[2025-07-09] MEDS: PROTONIX IV 40 MG IV (19:51)
[2025-07-09] MEDS: NSS (PRESERVATIVE FREE) 10 ML IV (19:51)
[2025-07-09] MEDS: ELIQUIS 2.5 MG PO (19:52)
[2025-07-09 20:45] LABS: Glucose - Point of Care 164 mg/dl (70-99)
[2025-07-09] MEDS: LIPITOR 10 MG PO (21:42)
--- NOTE | 2025-07-09 21:48 | PTCARENOTE ---
Patient`s automatic blood pressure at 1900 was 83/39. Patient was asymptomatic. Manual BP was 80/44. Avani SALES PROMOTION COORDINATOR made aware, no new orders for blood pressure. Repeat blood pressure at 2149 was 95/65 and a heart rate of 87. Call valle within reach. Bed
and chair alarm remained plugged in.
[2025-07-10] VITALS (8 sets, daily range): BP systolic 90–112; BP diastolic 42–64; PULSE 83; O2SAT 95; BMI 31.3
[2025-07-10 07:46] LABS: Glucose - Point of Care 209 mg/dl (70-99)
[2025-07-10 08:17] LABS: Hematocrit 35.9 % (37.0-47.0); Hemoglobin 12.1 g/dL (12.0-16.0); Mean Corp Hgb Conc. 33.7 g/dL (33.0-37.0); Mean Corpuscular Volume 85.1 fL (81.0-99.0); Platelet Count 196 10^3/uL (130-400); Red Cell Dist. Width 15.5 % (11.5-14.5)
[2025-07-10 09:11] LABS: Blood Urea Nitrogen 53 mg/dl (7-17); Calcium 8.1 mg/dl (8.4-10.2); Carbon Dioxide 24 mmol/L (22-30); Chloride 99 mmol/L (98-107); Estimated Creatinine Clearance 23 ml/min; Glucose 191 mg/dl (70-99); Potassium 4.4 mmol/L (3.5-5.1); Sodium 131 mmol/L (135-145); eGFR 27.10
[2025-07-10] MEDS: NOVOLOG FLEXPEN 5 UNITS SC ×3 (09:44→18:39)
[2025-07-10] MEDS: NOVOLOG FLEXPEN-MODERATE RESISTANCE 3 UNITS SC (09:45)
[2025-07-10] MEDS: CARDURA 8 MG PO (09:47)
[2025-07-10] MEDS: FARXIGA 10 MG PO (09:47)
[2025-07-10] MEDS: TOPROL XL 100 MG PO (09:48)
[2025-07-10] MEDS: KCL 10 MEQ PO (09:48)
[2025-07-10] MEDS: PROTONIX 40 MG PO (09:50)
[2025-07-10] MEDS: ELIQUIS 2.5 MG PO ×2 (09:51→21:10)
[2025-07-10] MEDS: ACTOS 30 MG PO (09:51)
[2025-07-10] MEDS: NON-FORMULARY ITEM 5 % TOPICAL (09:52)
[2025-07-10] MEDS: NEURONTIN 100 MG PO ×3 (09:52→21:13)
[2025-07-10] MEDS: DICLOFENAC 1% TOPICAL GEL 8 GRAM TOPICAL ×3 (09:57→18:40)
--- NOTE | 2025-07-10 11:01 | W.PN.HOSP.TC ---
Addendum entered and electronically signed by Ry Mccollum MD 07/10/25 21:50:
Attending Addendum-
I saw and evaluated the patient. I reviewed the resident�s note and agree with findings and plan as documented in the resident�s note. Sub: no further blurry vision. felt mildly dizzy on standing. patient denies SOB or GARCIA CP palps fevers chills.
Full 12 point ROS reviewed and negative except as documented Exam: Vitals reviewed in chart GEN-NAD heart irreg irreg lungs decreased BS LLL abd soft LE +1 pitting edema B/L
Plan:
#Acute Hypoxic Respiratory Failure-resolved
#Symptomatic Left Sided Pleural Effusion
-IR thoracentesis 07/06-1500mls
-cytology-P, exudate therefore not due to CHF
-CT chest-07/08
1. MODERATE to LARGE LEFT PLEURAL EFFUSION.
2. Moderate centrilobular ground-glass opacity in the left upper lobe and superior segment of the left lower lobe. Diagnostic possibilities are (1) reexpansion pulmonary edema in the setting of a recent left thoracentesis or (2) pneumonia (if
there are signs/symptoms of pulmonary infection)
3. Fusiform ascending thoracic aortic aneurysm (4.0 cm diameter)-follow up as OP
4. Previous left breast lumpectomy.
4. 2.3 cm right lower pole thyroid nodule.
5. Chronic vertebral body endplate fractures of T11 and T12.
-repeat thoracentesis 07/09- 1250mls-exudate
-CTM
#Acute on Chronic HFpEF
-Patient is a known patient of Dr. Henson/cardiology
-resolved
-Cardiology is following, appreciate input
-Echocardiogram- 07/08-Normal LV size. Mild LVH. Normal LV systolic function. Estimated LVEF 65-70%. Mild/moderate tricuspid regurgitation. Estimated pulmonary artery pressure of 45 mmHg assuming a right atrial pressure of 8 mmHg. Mild/moderately
elevated PASP.
-hold Lasix as cr increasing
-Continue metoprolol
-Will monitor
#DENNYS on CKD3a
-worsening further
-likely JERAMIE component
-hold lasix
-give 250mls fluid bolus
-repeat BMP in am
# Hyponatremia
- CTM repeat BMP in am
#Essential hypertension
-Continue Cardura and metoprolol-hold parameters placed
-stable, monitor
#Permanent atrial fibrillation
-restart Eliquis post thoracentesis
#Hypercholesterolemia
-Continue home atorvastatin
#Type II diabetes mellitus
-better controlled
-DTF0q-8.7
-Continue Farxiga 10mg, Actos 30mg
-Holding Metformin and trulicity (GLP-1)
-cont mod dose SSI
-cont novolog 5 premeal
#PN- cont gabapentin
#GERD- cont Protonix
CODE-FULL
DVTp-eliquis restart
Dispo DC home with home care next 24-48 hours
Time spent coordinating care, review of plan of care with resident, personally reviewed records in EMR, med rec, consults, notes, labs, radiology, d/w nursing� 51 mins
Original Note:
Today's Communication/Plan
-
Worsening DENNYS, will repeat BMP in AM
Continue to monitor for symptoms
Continue to HOLD Lasix
Assessment / Plan
Assessment / Plan
Assessment
This is an 85 y/o female with pmhx of essential hypertension, permanent atrial fibrillation on Eliquis 5mg BID, hypercholesterolemia and type II diabetes mellitus who presented to the ED on 07/05/2025 with ongoing shortness of breath for several
weeks due to left sided pleural effusion found on outpatient X-ray.
Plan
Acute Hypoxic Respiratory Failure, resolving
Symptomatic Left Sided Pleural Effusion, Improved
-As noted on X-ray in the ED: Dense opacification of the majority of the left lung favored to represent a combination of large pleural fluid, and atelectasis and/or pneumonia. A small portion of the left upper lob remains aerated. Imaging follow up
recommended as underlying mass would be difficult to exclude. The cardiac silhouette is enlarged. Moderate thoracic dextroscoliosis.
-S/p IR thoracentesis 07/06/2025 with 1.5L removed. Follow up X-ray showed moderate to large left sided pleural effusion.
--Cytology of thoracentesis revealed pH 7.44, WBC 302 Glucose 160, T protein 4, LDH 96. Serum LDH 193, serum total protein 6.5. Exudative per Light's criteria
--Pathology was negative for malignant cells. Positive for reactive mesothelial cells, light lymphocyte predominant background inflammation, and macrophages present
-S/p IR Thoracentesis on 07/09/2025 with 1.2L removed. Follow up X-ray showed a small to moderate residual pleural effusion present. Cytology confirmed exudative fluid by Light's Criteria.
-Continue Eliquis 2.5mg given creatinine today
-Will reevaluate symptoms daily
-Will monitor
Acute Kidney Injury
-Patient with DENNYS on admission that had initially resolved, but Creatinine yesterday increased to 1.6, and today again to 1.8, likely secondary to IV Lasix and Contrast
-HOLD Lasix again in light of DENNYS
-No indication for IV fluids at this time
-Will plan to monitor creatinine tomorrow. If stable or improved, plan for outpatient follow up
Acute on Chronic HFpEF
-Patient is a known patient of Dr. Henson for cardiology
-BNP on 07/05 was 1560
-Cardiology is following, will appreciate their insight into her case
-Echocardiogram completed on 07/08 showed preserved ejection fraction
-HOLD IV Lasix 40mg BID today with goal to resume oral medication tomorrow
-Continue metoprolol 50mg QD
-Will monitor
Heartburn - Resolved
-Chronic
-Suspect could be secondary to her potassium supplement as it is a known irritant
-Continue Pantoprazole 40mg QD
-Will monitor
Essential hypertension
-Continue Nicky 8mg, 50mg QD
-Will monitor
Permanent atrial fibrillation
-On Eliquis 5mg BID at home, 2.5mg dose has been started yesterday due to DENNYS
Hypercholesterolemia
-Continue home atorvastatin
Type II diabetes mellitus
-Continue Farxiga 10mg, Actos 30mg
-Hold Metformin
-Continue sliding scale moderate dose given increased blood sugars at this admission. Most recent a1c during this admission was 6.7%
-Added 5 units standing Novolog before meals
History of Left Sided Breast Cancer
-By daughter's report, does not currently follow with oncologist. Will need to discuss with patient further to find out where she received treatment and when, although this seems to be a more remote history and s/p lumpectomy
-Of note, current pleural effusion is also on the left side
-Will monitor
DISPO: Tentative plan for D/c to home tomorrow with home PT based on creatinine in the AM. Updated patient's granddaughter over the phone.
Anticipated Discharge: Within 24 hours
Subjective/Interval History
-
Date of Service: July 10, 2025
[employer] paving machine operator gabriele used for medical translation from Turkish. Debby WINSTON providing translation.
Patient is doing well today. She had some pain yesterday at her thoracentesis site but this resolved and she has no pain or shortness of breath today. She understands as of the time of my interview we are still waiting for her creatinine lab to
result to determine our next steps.
Objective Data
-
Labs:
Laboratory Results
07/10/25
07:14
WBC 6.9
Hgb 12.1
Hct 35.9 L
Plt Count 196
Sodium 131 L
Potassium 4.4
Chloride 99
Carbon Dioxide 24
BUN 53 H
Creatinine 1.8 H
Glucose 191 H
Calcium 8.1 L
Vital Signs:
Vital Signs
Temp Pulse Resp BP Pulse Ox
98.6 F 90 16 102/57 97
07/10/25 07:20 07/10/25 07:20 07/10/25 07:20 07/10/25 07:20 07/10/25 07:20
I&O
07/09/25 07/10/25 07/11/25
06:59 06:59 06:59
Intake Total 180 / 180 750 / 750
Balance 180 / 180 750 / 750
Review of Systems
-
History Source: Patient
Constitutional: Denies Fever or Chills
Respiratory: Denies Cough or Trouble Breathing
Cardiac: Denies Chest Pain
Abdomen/GI: Denies Abdominal Pain, Nausea, Vomiting, Diarrhea or Constipated
Neuro: Denies Dizzy or Headache
Physical Exam
-
General: Well Developed, Well Nourished, No Apparent Distress and Comfortable
HEENT: Normocephalic and Atraumatic
Respiratory: Clear to Auscultation
Cardiac: S1/S2 and Irregular Rhythm
GI: Soft and Nontender
Musculoskeletal: Edema, Right Lower Extrem (1+) and Edema, Left Lower Extrem (1+)
Skin: Warm and Dry
Neuro: Awake, Alert and Oriented
Psych: Calm
--- NOTE | 2025-07-10 11:03 | W.PN.CD ---
Addendum entered and electronically signed by Geoffrey Goode MD 07/10/25 18:17:
Patient seen and examined in collaboration with KLYSTROM TUBE TESTER; agree with below.
- Continue to hold Lasix for DENNYS.
- Continue to monitor renal function.
- Continue to monitor I/O's and volume status closely.
Original Note:
Today's Communication / Plan
-
Remain off Lasix today and repeat renal function in AM
Monitor BP and HR on metoprolol
Eliquis discussion as below
Impression / Plan
-
I/P: 85F with type 2 DM, hypertension, dyslipidemia, HFpEF, permanent AFIB on Eliquis who is here for evaluation of 1 week of fatigue, weakness, 'feeling of choking in her throat', and SOB. SOB worse with laying and bending over.
Primary instructional technology specialist: Dr. Henson
SOB in the setting of L pleural effusion: improved
-s/p thoracentesis 1500mL 07/06, 1250 07/09/29
-pulmonary has been on the case
-CHF as below
Imshn-rm-pudqmju HFpEF, severe requiring hospitalization
- She was diuresed with intravenous furosemide. Diuretics on hold due to DENNYS.
- on SGLT2i as OP
Permanent atrial fibrillation:
-rates controlled on higher dose metoprolol- continue and monitor HR/BP
-Oral anticoagulation: Apixaban 5 mg twice daily as OP. Currently 2.5 mg PO BID since creatinine 1.8 and age 85. When creatinine back to <1.5, needs to go back on 5 mg BID dosing.
DENNYS:
-Likely due to multiple fluid shifts with diuresis and thoracentesis. Some hypotension last evening. Now resolved. BP meds have been adjusted as below.
-worsening- consider nephro
HTN:
-on Doxazosin, metoprolol, ARB/HCTZ at admission
-currently just on metoprolol
We communicated today with son as shell reprint operator, though I did offer official IPAD shell reprint operator.
DATA:
Transthoracic echocardiogram, 07/08/2025:
SUMMARY
1. Normal LV size. Mild LVH. Normal LV systolic function. Estimated LVEF 65-70%.
2. Mild/moderate tricuspid regurgitation. Estimated pulmonary artery pressure of 45 mmHg assuming a right atrial pressure of 8 mmHg. Mild/moderately elevated PASP.
3. There is evidence of pleural effusion.
4. No prior study available for comparison.
Physical Exam
Vital Signs/Labs
Vital Signs
Temp Pulse Resp BP Pulse Ox
98.6 F 90 16 102/57 97
07/10/25 07:20 07/10/25 07:20 07/10/25 07:20 07/10/25 07:20 07/10/25 07:20
07/09/25 07/10/25 07/11/25
06:59 06:59 06:59
Actual Weight 86.268 kg 82.752 kg
07/10/25 07:14
07/10/25 07:14
PT 16.3 Sec (11.4-14.6) H 07/06/25 08:03
INR 1.29 07/06/25 08:03
07/05/25
15:28
Bql-M-[id number] Pept 1560
Physical Exam
Constitutional: No acute distress
EENT: Anicteric
Cardiovascular: Rhythm/rate is irregular and Pedal edema present (mild BLE edemqa)
Respiratory: Respiratory effort normal and Lungs clear to auscul.
Neuro/Psych: AO x 3
Data Reviewed
-
Date of Service: July 10, 2025
EKG: Other (AFIB, rate-controlled)
Labs: Labs Reviewed by me
[2025-07-10 11:51] LABS: Glucose - Point of Care 265 mg/dl (70-99)
--- NOTE | 2025-07-10 13:21 | CM ---
CM reviewed chart, per Cardiology, patient for repeat renal function in a.m.
Therapy recommending home health- patient recently d/c from [facility], faxed to [phone].
CM will continue to follow for all d/c planning needs.
Plan; home with [facility]
6
[2025-07-10] MEDS: NOVOLOG FLEXPEN-MODERATE RESISTANCE 5 UNITS SC (13:43)
[2025-07-10 17:04] LABS: Glucose - Point of Care 133 mg/dl (70-99)
[2025-07-10] MEDS: NOVOLOG FLEXPEN-MODERATE RESISTANCE SC (18:08)
--- NOTE | 2025-07-10 18:20 | W.PN.UPDATE ---
Update Note
Progress Note Update
Was alerted by nurse via [employer] at 5:55PM that patient's blood pressure was 92/49 and that she complained of dizziness. I went to her room and used [employer] gabriele with Tia PEÑALOZA providing medical translation. The patient states that
she felt normal this morning but began to feel more tired, her hands began to shake, and she began to feel dizzy. This is new for her this admission. She is worried because her blood pressure was low that this was the cause, as normally she runs up
to 160 systolic. She was able to, after our conversation, get up independently and ambulate to the bathroom using her rolling walker without nursing assistance.
She also informs me she has been hesitating to take Miralax thus far, but would like it today because she has not had many bowel movements (She reports no bowel movement for 4 days, but has also refused MiraLax by nursing staff). Last bowel movement
documented in our records was on 07/09 in the AM.
I discussed her case with nursing staff, who repeated her BP and found it to be 98/48). They will repeat it again after a bolus of 250mL of NS. I also contacted her son, Noel, and let him know.
[2025-07-10] MEDS: MIRALAX 17 GRAMS PO (18:36)
[2025-07-10] MEDS: NSS 250 IV (18:39)
[2025-07-10] MEDS: FLUSH (NSS) 1 FLUSH IV (18:39)
[2025-07-10] MEDS: DICLOFENAC 1% TOPICAL GEL 100 GRAM TOPICAL (21:08)
[2025-07-10] MEDS: LIPITOR 10 MG PO (21:12)
[2025-07-10 21:28] LABS: Glucose - Point of Care 76 mg/dl (70-99)
[2025-07-10 22:21] LABS: Glucose - Point of Care 142 mg/dl (70-99)
[2025-07-11 03:00] VITALS: BP 125/65
[2025-07-11 07:20] VITALS: BP 103/56
--- NOTE | 2025-07-11 07:47 | W.PN.HOSP.TC ---
Addendum entered and electronically signed by Ry Mccollum MD 07/11/25 21:53:
Attending Addendum-
I saw and evaluated the patient. I reviewed the resident�s note and agree with findings and plan as documented in the resident�s note. Sub: feels great. ready to go home. patient denies dizziness, SOB or GARCIA CP palps fevers chills. Full 12 point ROS
reviewed and negative except as documented Exam: Vitals reviewed in chart GEN-NAD heart irreg irreg lungs decreased BS LLL abd soft LE +1 pitting edema B/L
Plan:
#Acute Hypoxic Respiratory Failure-resolved
#Symptomatic Left Sided Pleural Effusion
-IR thoracentesis 07/06-1500mls
-cytology-P, exudate
-CT chest-07/08
1. MODERATE to LARGE LEFT PLEURAL EFFUSION.
2. Moderate centrilobular ground-glass opacity in the left upper lobe and superior segment of the left lower lobe. Diagnostic possibilities are (1) reexpansion pulmonary edema in the setting of a recent left thoracentesis or (2) pneumonia (if
there are signs/symptoms of pulmonary infection)
3. Fusiform ascending thoracic aortic aneurysm (4.0 cm diameter)-follow up as OP
4. Previous left breast lumpectomy.
5. 2.3 cm right lower pole thyroid nodule.
6. Chronic vertebral body endplate fractures of T11 and T12.
-repeat thoracentesis 07/09- 1250mls-exudate
-f/u pending studies as OP
#Acute on Chronic HFpEF
-Patient is a known patient of Dr. Henson/cardiology
-resolved
-Cardiology is following, appreciate input
-Echocardiogram- 07/08-Normal LV size. Mild LVH. Normal LV systolic function. Estimated LVEF 65-70%. Mild/moderate tricuspid regurgitation. Estimated pulmonary artery pressure of 45 mmHg assuming a right atrial pressure of 8 mmHg. Mild/moderately
elevated PASP.
-restart Lasix as OP 40mg
-Continue metoprolol
-Will monitor
#DENNYS on CKD3a
-resolving
-likely JERAMIE component
-restart lasix on DC
-given 250mls fluid bolus
-repeat BMP as OP
# Hyponatremia
- CTM repeat BMP in am
# Hyperkalemia- mild repeat BMP as OP restarted lasix
#Essential hypertension
-Continue Cardura and metoprolol-hold parameters placed
-stable, monitor
#Permanent atrial fibrillation
-restarted Eliquis post thoracentesis
#Hypercholesterolemia
-Continue home atorvastatin
#Type II diabetes mellitus
-better controlled
-FXA4p-2.7
-Continue Farxiga 10mg, Actos 30mg
-restart Metformin and trulicity (GLP-1)on DC
-cont mod dose SSI
#PN- cont gabapentin
#GERD- cont Protonix
CODE-FULL
DVTp-eliquis restart
Dispo DC home with home care
Time spent coordinating care, DC planning, review of DC plan of care with resident, transition of care, review of records, med rec/scripts sent electronically, consults, notes, d/w consultants, nursing, and CM� 32 mins >50% of this time was devoted
to counseling and coordination of care
Original Note:
Today's Communication/Plan
-
Discharge planning
Assessment / Plan
Assessment / Plan
Assessment
This is an 85 y/o female with pmhx of essential hypertension, permanent atrial fibrillation on Eliquis 5mg BID, hypercholesterolemia and type II diabetes mellitus who presented to the ED on 07/05/2025 with ongoing shortness of breath for several
weeks due to left sided pleural effusion found on outpatient X-ray.
Plan
Acute Hypoxic Respiratory Failure, resolving
Symptomatic Left Sided Pleural Effusion, Improved
-As noted on X-ray in the ED: Dense opacification of the majority of the left lung favored to represent a combination of large pleural fluid, and atelectasis and/or pneumonia. A small portion of the left upper lob remains aerated. Imaging follow up
recommended as underlying mass would be difficult to exclude. The cardiac silhouette is enlarged. Moderate thoracic dextroscoliosis.
-S/p IR thoracentesis 07/06/2025 with 1.5L removed. Follow up X-ray showed moderate to large left sided pleural effusion.
--Cytology of thoracentesis revealed pH 7.44, WBC 302 Glucose 160, T protein 4, LDH 96. Serum LDH 193, serum total protein 6.5. Exudative per Light's criteria
--Pathology was negative for malignant cells. Positive for reactive mesothelial cells, light lymphocyte predominant background inflammation, and macrophages present
-S/p IR Thoracentesis on 07/09/2025 with 1.2L removed. Follow up X-ray showed a small to moderate residual pleural effusion present. Cytology confirmed exudative fluid by Light's Criteria.
-Will reevaluate symptoms daily
-Will monitor
Hyperkalemia
-Potassium 5.4 today prior to insulin
-HOLD home potassium supplement
-Restart Lasix today at home dose
-Recheck BMP on Tuesday as outpatient
Symptomatic Hypotension, Resolved
-Patient with hypotension and dizziness first noted 07/10
-Provided 1 time 250mL fluid bolus of NS on 07/10
-Hold parameters already in place on metoprolol
-Will monitor
Acute Kidney Injury
-Patient with DENNYS on admission that had initially resolved, but Creatinine increased to 1.6, and on 07/10 to 1.8, likely secondary to IV Lasix and Contrast
-Creatinine today 1.5
-Recheck BMP on Tuesday as outpatient
Acute on Chronic HFpEF
-Patient is a known patient of Dr. Henson for cardiology
-BNP on 07/05 was 1560
-Cardiology is following, will appreciate their insight into her case
-Echocardiogram completed on 07/08 showed preserved ejection fraction
-Continue metoprolol 50mg QD
-Will monitor
Heartburn - Resolved
-Chronic
-Suspect could be secondary to her potassium supplement as it is a known irritant
-Continue Pantoprazole 40mg QD
-Will monitor
Essential hypertension
-Continue Nicky 8mg, 50mg QD
-Will monitor
Permanent atrial fibrillation
-On Eliquis 5mg BID at home
-DENNYS improved, restart 5mg BID upon discharge with BMP on Tuesday to ensure DENNYS is resolved
Hypercholesterolemia
-Continue home atorvastatin
Type II diabetes mellitus
-Continue Farxiga 10mg, Actos 30mg
-Hold Metformin
-Continue sliding scale moderate dose given increased blood sugars at this admission. Most recent a1c during this admission was 6.7%
-Continue 5 units standing Novolog before meals
History of Left Sided Breast Cancer
-By daughter's report, does not currently follow with oncologist. Will need to discuss with patient further to find out where she received treatment and when, although this seems to be a more remote history and s/p lumpectomy
-Of note, current pleural effusion is also on the left side
-Will monitor
DISPO: Tentative plan for D/c to home tomorrow with home PT based on creatinine in the AM. Updated patient's granddaughter over the phone.
Anticipated Discharge: Today
Subjective/Interval History
-
Date of Service: July 11, 2025
[email or web address] Payment [employer] used for medical translation from Stateless to Tristanian. Laurie [email or web address] was providing the translation.
Today, patient reports feeling very well. She denies any current episodes of dizziness over night since receiving the fluid bolus. She continues to be free of shortness of breath and chest pain. She is happy to be going home soon.
Objective Data
-
Labs:
Laboratory Results
07/11/25
07:25
WBC Pending
Hgb Pending
Hct Pending
Plt Count Pending
Sodium Pending
Potassium Pending
Chloride Pending
Carbon Dioxide Pending
BUN Pending
Creatinine Pending
Glucose Pending
Calcium Pending
Vital Signs:
Vital Signs
Temp Pulse Resp BP Pulse Ox
97.3 F 100 16 125/65 96
07/11/25 03:00 07/11/25 03:00 07/11/25 03:00 07/11/25 03:00 07/11/25 03:00
I&O
07/10/25 07/11/25 07/12/25
06:59 06:59 06:59
Intake Total 750 / 750 1440 / 1440
Balance 750 / 750 1440 / 1440
Review of Systems
-
History Source: Patient
Constitutional: Denies Fever or Chills
Cardiac: Denies Chest Pain or Palpitations
Abdomen/GI: Denies Abdominal Pain, Nausea, Vomiting or Diarrhea
Musculoskeletal: Denies Joint Pain
Neuro: Denies Dizzy, Headache or Weakness
Physical Exam
-
General: Well Developed, Well Nourished, No Apparent Distress and Comfortable
HEENT: Normocephalic and Atraumatic
Respiratory: Clear to Auscultation
Cardiac: S1/S2 and Irregular Rhythm
Musculoskeletal: Edema, Right Lower Extrem (1+) and Edema, Left Lower Extrem (1+)
Skin: Warm and Dry
Neuro: Awake, Alert and Oriented
Psych: Calm
[2025-07-11 07:54] LABS: Glucose - Point of Care 178 mg/dl (70-99)
--- NOTE | 2025-07-11 08:15 | W.PN.CD ---
Today's Communication / Plan
-
Improved.
Would start furosemide 40mg daily on discharge with renal panel at 3-5 days --results to Dr Henson
Continue just metoprolol
follow up with Dr Henson on discharge
I will sign off please call back with questions
Impression / Plan
-
I/P: 85F with type 2 DM, hypertension, dyslipidemia, HFpEF, permanent AFIB on Eliquis who is here for evaluation of 1 week of fatigue, weakness, 'feeling of choking in her throat', and SOB. SOB worse with laying and bending over.
Primary validation consultant: Dr. Henson
SOB in the setting of L pleural effusion: improved
-s/p thoracentesis 1500mL 07/06, 1250 07/09/29
-pulmonary has been on the case
-CHF as below
Uzhht-kc-etgrrsq HFpEF, severe requiring hospitalization
- She was diuresed with intravenous furosemide. Diuretics on hold due to DENNYS.
- on SGLT2i as OP
-Need to get a weight today
-favor resuming furosemide 40mg daily on discharge.
Permanent atrial fibrillation:
-rates controlled on higher dose metoprolol- continue and monitor HR/BP
-Oral anticoagulation: Apixaban 5 mg twice daily as OP. Currently 2.5 mg PO BID since creatinine 1.5 and age 85. When creatinine back to <1.5, needs to go back on 5 mg BID dosing.
DENNYS:
-Likely due to multiple fluid shifts with diuresis and thoracentesis. Some hypotension last evening. Now resolved. BP meds have been adjusted as below.
-improving
HTN:
-on Doxazosin, metoprolol, ARB/HCTZ at admission
-continue just on metoprolol
We communicated today with video motorcyles final inspector
DATA:
Transthoracic echocardiogram, 07/08/2025:
SUMMARY
1. Normal LV size. Mild LVH. Normal LV systolic function. Estimated LVEF 65-70%.
2. Mild/moderate tricuspid regurgitation. Estimated pulmonary artery pressure of 45 mmHg assuming a right atrial pressure of 8 mmHg. Mild/moderately elevated PASP.
3. There is evidence of pleural effusion.
4. No prior study available for comparison.
Physical Exam
Vital Signs/Labs
Vital Signs
Temp Pulse Resp BP Pulse Ox
97.3 F 100 16 125/65 96
07/11/25 03:00 07/11/25 03:00 07/11/25 03:00 07/11/25 03:00 07/11/25 03:00
07/10/25 07/11/25 07/12/25
06:59 06:59 06:59
Actual Weight 182 lb 7 oz
PT 16.3 Sec (11.4-14.6) H 07/06/25 08:03
INR 1.29 07/06/25 08:03
07/05/25
15:28
Yqu-T-Vyhxacdxhuc Pept 1560
Physical Exam
Constitutional: No acute distress
Cardiovascular: Rhythm & rate is regular, JVD pressure is normal, Systolic murmur absent, Diastolic murmur absent and Pedal edema present (trace edema bl)
Respiratory: Respiratory effort normal, Lungs clear to auscul., Wheeze Absent, Crackles Absent and Rhonchi Absent
Neuro/Psych: AO x 3
Data Reviewed
-
Date of Service: July 11, 2025
Medical Decision Making: Review of Case with other Provider (Nursing Anastasiya land today. Med Resident: resume furosemide on discharge. F/u Dr Henson)
[2025-07-11 08:17] LABS: Hematocrit 37.7 % (37.0-47.0); Hemoglobin 12.7 g/dL (12.0-16.0); Mean Corp Hgb Conc. 33.7 g/dL (33.0-37.0); Mean Corpuscular Volume 84.2 fL (81.0-99.0); Platelet Count 211 10^3/uL (130-400); Red Cell Dist. Width 15.3 % (11.5-14.5)
[2025-07-11] MEDS: KCL 10 MEQ PO (08:37)
[2025-07-11] MEDS: CARDURA 8 MG PO (08:37)
[2025-07-11] MEDS: FARXIGA 10 MG PO (08:37)
[2025-07-11] MEDS: NEURONTIN 100 MG PO (08:37)
[2025-07-11] MEDS: ELIQUIS 2.5 MG PO (08:37)
[2025-07-11] MEDS: ACTOS 30 MG PO (08:37)
[2025-07-11 08:38] LABS: Blood Urea Nitrogen 55 mg/dl (7-17); Calcium 8.5 mg/dl (8.4-10.2); Carbon Dioxide 23 mmol/L (22-30); Chloride 101 mmol/L (98-107); Estimated Creatinine Clearance 28 ml/min; Glucose 186 mg/dl (70-99); Potassium 5.4 mmol/L (3.5-5.1); Sodium 132 mmol/L (135-145); eGFR 33.73
[2025-07-11] MEDS: PROTONIX 40 MG PO (08:38)
[2025-07-11] MEDS: NOVOLOG FLEXPEN-MODERATE RESISTANCE 1 UNITS SC (08:38)
[2025-07-11] MEDS: TOPROL XL 100 MG PO (08:38)
[2025-07-11] MEDS: NOVOLOG FLEXPEN 5 UNITS SC (08:39)
[2025-07-11] MEDS: NON-FORMULARY ITEM 10 % TOPICAL (08:40)
[2025-07-11] MEDS: DICLOFENAC 1% TOPICAL GEL 100 GRAM TOPICAL (08:40)
--- NOTE | 2025-07-11 09:56 | W.DCSUMMARY ---
Addendum entered and electronically signed by Ry Mccollum MD 07/11/25 21:54:
Read, reviewed, and agree. See same day progress note for additional details.
Panfilo Mccollum MD
Original Note:
Documented by User: Marissa Urban DO, Resident 07/11/25 11:42
Discharge Summary
Discharge Data
Date of Admission: 07/05/25
Date of Discharge: 07/11/25
-
Pending Results: No
Hospital Course
Discharging Physician : Dr. Mccollum
Disposition : Good
Primary care physician : Mike Stafford MD
Principal Discharge diagnosis : Left Pleural Effusion
Chronic Discharge diagnosis : Essential hypertension, permanent atrial fibrillation on Eliquis 5mg BID, hypercholesterolemia and type II diabetes mellitus with retinopathy
Hospital Course :
This is an 85 y/o female with pmhx of essential hypertension, permanent atrial fibrillation on Eliquis 5mg BID, hypercholesterolemia and type II diabetes mellitus with retinopathy who presented to the ED on 07/05/2025 with ongoing shortness of breath
for several weeks. She had an outpatient X-ray which showed a large left pleural effusion, so her doctor encouraged her to go to the hospital. She has not been seen at this hospital before.
In the ED, her creatinine was 1.3. EKG showed atrial fibrillation, which based upon outside records from her cardiology office appears to be permanent. A chest X-ray showed dense opacification of the majority of the left lung favored to represent a
combination of large pleural fluid, and atelectasis and/or pneumonia. A small portion of the left upper lob remains aerated. Imaging follow up recommended as underlying mass would be difficult to exclude. The cardiac silhouette is enlarged. Moderate
thoracic dextroscoliosis.
Cardiology, Pulmonology and Interventional Radiology were consulted. She was admitted to the hospital for further management.
On 07/06, a thoracentesis was performed which removed 1.5L of straw color fluid. Analysis revealed this to be exudative. Follow up X-ray revealed a persistence of the moderate to large effusion despite thoracentesis. Her creatinine returned to 1.0 on
this day. On 07/07, another chest X-ray showed continued moderate to large effusion. She was started on IV Lasix.
On 07/08, she underwent a CT scan of her chest and echocardiogram. The results are as noted below.
On 07/09 she had a repeat thoracentesis which removed 1.3L of clear yellow fluid. Analysis revealed this to also be exudative. Follow up X-ray showed Interval decrease in size of left pleural effusion compatible with history of thoracentesis. There
is a small to moderate residual pleural effusion present. Adjacent parenchymal opacity within the left lower lung, which is likely compressive atelectasis. There is no evidence for pneumothorax. Her creatinine increased to 1.6, and Lasix was held.
On 07/10 her creatinine increased to 1.8. She developed an episode of symptomatic hypotension in the evening, and was given a 250mL bolus of NS with no recurrence in her symptoms. Her Lasix continued to be held on this day.
On 07/11 her creatinine improved to 1.5. She was found to be medically stable and discharged to home. Her outpatient dosage Eliquis and Furosemide were resumed. Her Potassium Chloride supplement was held until she could have an outpatient BMP be
completed on Tuesday. She is to follow up with her PCP in less than 1 week, and her Livestock Handler Dr. Henson for close follow up.
Important imaging findings :
CT Chest on 07/08:
1. MODERATE to LARGE LEFT PLEURAL EFFUSION.
2. Severe compressive atelectasis of the basilar segments of the left lower lobe.
3. Moderate centrilobular ground-glass opacity in the left upper lobe and superior segment of the left lower lobe. Diagnostic possibilities are (1) reexpansion pulmonary edema in the setting of a recent left thoracentesis or (2) pneumonia (if
there are signs/symptoms of pulmonary infection).
4. Severe calcific atherosclerotic plaque in the coronary arteries.
5. Fusiform ascending thoracic aortic aneurysm (4.0 cm diameter).
6. Mild mediastinal lymphadenopathy.
7. Previous left breast lumpectomy.
8. 2.3 cm right lower pole thyroid nodule.
9. Chronic vertebral body endplate fractures of T11 and T12.
10. Moderate to severe right convex curvature of the midthoracic spine.
Chest X-rays on 07/06, 07/07, and 07/09 as noted above
Procedure findings : N/a
Discharge Plan
-
Patient Disposition: Home (Routine Discharge)
Discharge Diagnosis/Procedures: Left sided Pleural Effusion
Condition: Good
Diet: 2 Gram Sodium
Activity: No restrictions
Driving Restrictions: As prior to admission
Bathing Restrictions: None
Blood Work: BMP on Tuesday
Specialty Instructions: Weigh Daily- Call MD for wt gain/loss 3 lbs overnight/5 lbs in 1 week
Referrals:
Spike Steele MD [Active, Pulmonary Medicine] - in three to four weeks
Referral Note: May see CLIENT EVALUATOR- Dx. Pleural effusion
Mike Stafford MD [Family Provider, Internal Medicine] - in less than 1 week
Additional Discharge Medication Instructions: Thank you for coming to [facility].
Upon your return to home, you may restart your regular dose of Eliquis (5mg twice daily) and Lasix (40mg once daily). You should NOT take your Potassium Chloride Supplement.
Your dose of Metoprolol has been changed from 25mg once daily, to 100mg once daily. This new prescription has been sent to your pharmacy.
STOP taking Valsartan-Hydrochlorothiazide.
You should follow up with your primary care doctor at your already scheduled appointment next week. Please have a Basic Metabolic Panel checked on Tuesday. Please DO NOT resume taking your potassium chloride supplement until after your Primary Care
Physician has said it is okay to do so.
Please follow up with your mortgage specialist, Dr. Henson, next week.
Prescriptions:
New
metoprolol succinate 50 mg Tablet Extended Release 24 Hr
100 mg PO DAILY Qty: 60 0RF
Continued
pioglitazone 30 mg Tablet
30 mg PO DAILY
Trulicity 3 mg/0.5 mL Pen Injector
3 mg SC QWEEK
lidocaine 5 % Adhesive Patch,Medicated
2 patch topical DAILY
Rx Instructions:
apply 1 patch to each leg
furosemide 40 mg Tablet
40 mg PO DAILY Qty: 0 0RF
atorvastatin 10 mg Tablet
10 mg PO HS Qty: 0 0RF
metformin 850 mg Tablet
850 mg PO BID Qty: 0 0RF
doxazosin 8 mg Tablet
8 mg PO DAILY Qty: 0 0RF
gabapentin 100 mg Capsule
100 mg PO DAILY Qty: 0 0RF
magnesium 200 mg Tablet
400 mg PO DAILY Qty: 0 0RF
Eliquis 5 mg Tablet
5 mg PO BID Qty: 0 0RF
Jardiance 10 mg Tablet
10 mg PO DAILY Qty: 0 0RF
cholecalciferol (vitamin D3) [Vitamin D3] 50 mcg (2,000 unit) Capsule
50 mcg PO DAILY Qty: 0 0RF
icosapent ethyl [Vascepa] 1 gram Capsule
2 g PO BID Qty: 0 0RF
Held
potassium chloride 10 mEq Tablet Extended Release
10 meq PO DAILY
Hold Instructions: Resume on 07/22/25. Please talk to your primary care physician before resuming this medication.
Discontinued
valsartan-hydrochlorothiazide 160-25 mg Tablet
1 tab PO DAILY
metoprolol tartrate 25 mg Tablet
25 mg PO DAILY
Discharge Orders:
Discharge Patient (As Directed); Ordered 07/11/25
Ordered By: Marissa Urban
Discharge Date and Time
Discharge Date/Time: 07/11/25 12:11
Print Language: Citizen [place]

Documented by User: Ry Mccollum MD 07/11/25 21:50
Discharge Summary
Discharge Data
Date of Admission: 07/05/25
Date of Discharge: 07/11/25
Discharge Plan
-
Patient Disposition: Home (Routine Discharge)
Discharge Diagnosis/Procedures: Left sided Pleural Effusion
Condition: Good
Diet: 2 Gram Sodium
Activity: No restrictions
Driving Restrictions: As prior to admission
Bathing Restrictions: None
Blood Work: BMP on Tuesday
Specialty Instructions: Weigh Daily- Call MD for wt gain/loss 3 lbs overnight/5 lbs in 1 week
Referrals:
Spike Steele MD [Active, Pulmonary Medicine] - in three to four weeks
Referral Note: May see CLIENT EVALUATOR- Dx. Pleural effusion
Mike Stafford MD [Family Provider, Internal Medicine] - in less than 1 week
Additional Discharge Medication Instructions: Thank you for coming to [facility].
Upon your return to home, you may restart your regular dose of Eliquis (5mg twice daily) and Lasix (40mg once daily). You should NOT take your Potassium Chloride Supplement.
Your dose of Metoprolol has been changed from 25mg once daily, to 100mg once daily. This new prescription has been sent to your pharmacy.
STOP taking Valsartan-Hydrochlorothiazide.
You should follow up with your primary care doctor at your already scheduled appointment next week. Please have a Basic Metabolic Panel checked on Tuesday. Please DO NOT resume taking your potassium chloride supplement until after your Primary Care
Physician has said it is okay to do so.
Please follow up with your mortgage specialist, Dr. Henson, next week.
Prescriptions:
New
metoprolol succinate 50 mg Tablet Extended Release 24 Hr
100 mg PO DAILY Qty: 60 0RF
Continued
pioglitazone 30 mg Tablet
30 mg PO DAILY
Trulicity 3 mg/0.5 mL Pen Injector
3 mg SC QWEEK
lidocaine 5 % Adhesive Patch,Medicated
2 patch topical DAILY
Rx Instructions:
apply 1 patch to each leg
furosemide 40 mg Tablet
40 mg PO DAILY Qty: 0 0RF
atorvastatin 10 mg Tablet
10 mg PO HS Qty: 0 0RF
metformin 850 mg Tablet
850 mg PO BID Qty: 0 0RF
doxazosin 8 mg Tablet
8 mg PO DAILY Qty: 0 0RF
gabapentin 100 mg Capsule
100 mg PO DAILY Qty: 0 0RF
magnesium 200 mg Tablet
400 mg PO DAILY Qty: 0 0RF
Eliquis 5 mg Tablet
5 mg PO BID Qty: 0 0RF
Jardiance 10 mg Tablet
10 mg PO DAILY Qty: 0 0RF
cholecalciferol (vitamin D3) [Vitamin D3] 50 mcg (2,000 unit) Capsule
50 mcg PO DAILY Qty: 0 0RF
icosapent ethyl [Vascepa] 1 gram Capsule
2 g PO BID Qty: 0 0RF
Held
potassium chloride 10 mEq Tablet Extended Release
10 meq PO DAILY
Hold Instructions: Resume on 07/22/25. Please talk to your primary care physician before resuming this medication.
Discontinued
valsartan-hydrochlorothiazide 160-25 mg Tablet
1 tab PO DAILY
metoprolol tartrate 25 mg Tablet
25 mg PO DAILY
Discharge Orders:
Discharge Patient (As Directed); Ordered 07/11/25
Ordered By: Marissa Urban
Discharge Date and Time
Discharge Date/Time: 07/11/25 12:11
Print Language: Citizen [place]
--- NOTE | 2025-07-11 11:24 | CM ---
Chart reviewed. Patient will d/c home today
Updated son, reviewed IMM, copy on chart. Son will transport patient home
Faxed clinicals to [facility] as requested. SOC will be tomorrow
[facility]
6
Plan: Home today w/ [facility]
[2025-07-11 11:50] VITALS: BP 112/65
== END 2025-07-11 12:11 | disposition home health service (06) | DRG 291 ==
LOC: 4 WEST ACU 22:09
PROVIDERS: Radiology Diagnostic Radiology; Radiology Vascular & Interventional Radiology; Student in an Organized Health Care Education/Training Program; ADMITTING PHYSICIAN Internal Medicine; ATTENDING PHYSICIAN Family Medicine; CONSULT PHYSICIAN Internal Medicine Critical Care Medicine; CONSULT PHYSICIAN Student in an Organized Health Care Education/Training Program; EMERGENCY PHYSICIAN Emergency Medicine; FAMILY PHYSICIAN Internal Medicine
PROC: 0W9B3ZX Drainage of Left Pleural Cavity, Percutaneous Approach, Diagnostic (ICD-10-PCS; 2025-07-06)
PROC: 0W9G3ZZ Drainage of Peritoneal Cavity, Percutaneous Approach (ICD-10-PCS; 2025-07-09)
DX: I13.0 Hypertensive heart and chronic kidney disease with heart failure and stage 1 through stage 4 chronic kidney disease, or unspecified chronic kidney disease (principal); I50.33 Acute on chronic diastolic (congestive) heart failure; J96.01 Acute respiratory failure with hypoxia; J91.8 Pleural effusion in other conditions classified elsewhere; I48.21 Permanent atrial fibrillation; J98.11 Atelectasis; N17.9 Acute kidney failure, unspecified; E87.1 Hypo-osmolality and hyponatremia; I48.92 Unspecified atrial flutter; E78.00 Pure hypercholesterolemia, unspecified; E11.319 Type 2 diabetes mellitus with unspecified diabetic retinopathy without macular edema; N28.9 Disorder of kidney and ureter, unspecified; I71.21 Aneurysm of the ascending aorta, without rupture; E04.1 Nontoxic single thyroid nodule; R59.0 Localized enlarged lymph nodes; I95.9 Hypotension, unspecified; N18.31 Chronic kidney disease, stage 3a; R12 Heartburn; E87.5 Hyperkalemia; I25.10 Atherosclerotic heart disease of native coronary artery without angina pectoris; M19.90 Unspecified osteoarthritis, unspecified site; M41.9 Scoliosis, unspecified; Z79.01 Long term (current) use of anticoagulants; Z79.84 Long term (current) use of oral hypoglycemic drugs; Z79.899 Other long term (current) drug therapy; Z87.01 Personal history of pneumonia (recurrent)
CPT/HCPCS: 32555; 71045; 71046; 71260; 80048; 80053; 82150; 82945; 82962; 83036; 83615; 83880; 83986; 84155; 84157; 84478; 85025; 85027; 85610; 87015; 87070; 87102; 87116; 87205; 87206; 88112; 88305; 88341; 88342; 89051; 93005; 93306; 97116; 97162; 97166; 99285; Q9967

== ENCOUNTER 2025-08-05 15:22 | Inpatient (IN) | payer MEDICARE, OTHER, SELFPAY ==
[2025-08-05] VITALS (9 sets, daily range): BP systolic 134–152; BP diastolic 76–97; BMI 31.7
--- NOTE | 2025-08-05 12:50 | ED.GENMED ---
History of Present Illness
General
Chief Complaint: Breathing Problem
Source: patient and family
Exam Limitations: none
Time Seen by Provider: 08/05/25 12:32
History of Present Illness
History of Present Illness:
Note:
CHIEF COMPLAINT(S)
Trouble breathing and weakness.
HISTORY OF PRESENT ILLNESS
The patient is an 85-year-old female presenting with difficulty breathing and increased weakness over the past week. The symptoms have been progressively worsening. Her legs are slightly more swollen compared to previous observations. The patient
has a history of similar symptoms and was seen about a month ago, around July 06. She reports sleeping during the day and being unable to sleep lying down at night, requiring a recliner chair for rest. She has also been noted to have edema of
the legs.
PAST MEDICAL AND SURGICAL HISTORY
The patient has a history of appendectomy and cholecystectomy performed in [facility], [place].
CHRONIC MEDICAL CONDITIONS SIGNIFICANTLY AFFECTING CARE
The patient has a history of diabetes and hypertension. She has experienced an exacerbation of congestive heart failure symptoms in the past.
SOCIAL DETERMINANTS AFFECTING HEALTH
The patient lives by herself. There are no reports of smoking.
MEDICATIONS
The patient is taking Metoprolol 100 mg once daily, Torsemide 40 mg twice daily, and a blood thinner. She reports taking Trulicity for diabetes, administered as a weekly injection.
REVIEW OF SYSTEMS
- Cardiovascular: Swelling of legs, possibly indicative of fluid retention.
- Respiratory: Difficulty breathing, predominantly when laying flat.
- Sleep: Increased sleep during the day, inability to sleep effectively at night.
PHYSICAL EXAM
General: Alert, no acute distress.
Skin: Warm, dry.
Head: Normocephalic, atraumatic.
Neck: Supple, trachea midline.
Eye, Ears, Nose, Mouth, and Throat: Oral mucosa moist.
Cardiovascular: Normal peripheral perfusion, bilateral tibial edema.
Respiratory: decreased breath sounds left side
Gastrointestinal: Abdomen nondistended.
Back: Normal range of motion, Normal alignment.
Musculoskeletal: Normal range of motion, normal strength.
Neurological: Alert and oriented to person, place, time, and situation, No focal neurological deficit observed.
Psychiatric: Cooperative, appropriate mood & affect.
PLAN
The plan includes reviewing current x-ray results and blood tests to assess for fluid overload and heart function. Further treatment will be directed based on these findings.
DIFFERENTIAL DIAGNOSIS
The Differential Diagnosis includes, in no particular order and is not limited to:
- Congestive Heart Failure
- Pneumonia
- Chronic Obstructive Pulmonary Disease Exacerbation
- Pulmonary Edema
- Respiratory Infections
- Pulmonary Embolism
- Anemia
- Myocardial Ischemia
- Vascular Disease
- Fatigue related to Chronic Illness (such as Diabetes Mellitus)
EKG
My independent EKG interpretation is:
- Time of EKG: Not provided
- Rhythm: Atrial fibrillation with rapid ventricular response
- Heart rate: 115 bpm
- RI interval: Not mentioned
- QRS duration: Normal
- QT interval: Not mentioned
- Leroy: Not mentioned
- Abnormalities: Low voltage; No specific T wave abnormality mentioned
Disposition:
SUMMARY OF ENCOUNTER
The patient, an 85-year-old female, was seen in the emergency department due to difficulty breathing and increased weakness over the past week, conditions which have been progressively worsening. The patient has a history of diabetes, hypertension,
and previous exacerbations of congestive heart failure (CHF). Upon examination, atrial fibrillation with rapid ventricular response was noted along with signs suggestive of CHF exacerbation, including difficulty breathing and possible fluid overload
as indicated by swelling of the legs. There was also a suspicion of left pleural effusion. Chronic kidney disease was considered as a contributing factor. Given the clinical presentation and history, IV furosemide was administered to address
possible fluid overload.
DISPOSITION
Admit to hospitalist.
ASSESSMENT
The assessment includes CHF exacerbation, left pleural effusion, atrial fibrillation with rapid ventricular response, and chronic kidney disease.
EMERGENCY TREATMENTS ADMINISTERED
Intravenous furosemide (Lasix) was administered for fluid management.
PLAN
The plan involves admitting the patient to the hospital under the care of a hospitalist for further management and evaluation, including a review of x-ray and blood tests to assess fluid overload and heart function.
INDEPENDENT REVIEW OF LABS AND INTERPRETATION OF TESTS
My independent EKG interpretation shows atrial fibrillation with rapid ventricular response at a heart rate of 115 bpm.
MEDICATION RECONCILIATION
IV furosemide (Lasix) was administered in the emergency department to manage suspected fluid overload due to CHF exacerbation.
MEDICAL DECISION MAKING
- Complexity of Data Reviewed: Chronic conditions affecting care include a history of diabetes, hypertension, congestive heart failure, and chronic kidney disease. Differential diagnosis includes congestive heart failure, pulmonary edema, myocardial
ischemia, and others.
- Data:
Category 1:
My independent interpretation of the EKG showed atrial fibrillation with rapid ventricular response.
- Risk:
Consideration of admission was necessary due to the complexity and risk associated with the patients presenting complaint and comorbidities, resulting in the patient being admitted for inpatient management.
DIAGNOSIS
- Congestive Heart Failure Exacerbation (ICD-10: I50.9)
- Atrial Fibrillation with Rapid Ventricular Response (ICD-10: I48.0)
- Left Pleural Effusion (ICD-10: J90)
- Chronic Kidney Disease (ICD-10: N18.9)
Past History
Past History
ED Past Medical History: Arrthythmia, HTN, Hypercholesterolemia and NIDDM
ED Past Surgical History: Appendectomy, Cholecystectomy, Gynecological, Orthopedic and Tonsilectomy
Phy Exam
Physical Exam
Physical Exam:
.
Scores
Heart Failure Risk
Heart Failure Risk Score: Yes
History of Stroke or TIA: No
History of intubation for respiratory distress: No
Heart rate on ED arrival >/= 110: Yes
SaO2 <90% on arrival on room air: No
HR >/=110 during 3min walk test (or too ill to perform test): Yes
ECG has acute ischemic changes: No
Urea >/=12mmol/L (BUN 33.6mg/dL): Yes
Serum CO2>/=35mmol/L: No
Troponin I or T elevated to MN Level (0.4mg/dL): No
NT-proBNP >/=5,000ng/L (5,000pg/ml): No
HF Risk Score: 3
Admission Status: HIGH RISK 15.9% Consider SNF treatment or admission to hospital
Course
Orders/Labs/Results
Orders:
Orders
08/05/25 12:26
EKG [Electrocardiogram (*1)] Urgent
Reason for Study: Shortness of Breath
08/05/25 12:27
EKG- Treatment ONCE
08/05/25 12:36
CBC/With Diff [Complete Blood Count/With Diff] Urgent
CMP [Comprehensive Metabolic Panel] Urgent
COVID-19 Antigen Urgent
Source: Nasal Swab
Pro-BNP [NT-proBNP] Urgent
Troponin I Urgent
Comment: ADD ON
Influenza A+B Rapid Molecular Urgent
CHRIS Source: Nasal Swab
Specimen Description:
08/05/25 12:49
Add On- LAB Urgent
Tests Added?: troponin
CR Chest - 2 Views Urgent
Comment:
Reason For Exam: short of breath
Abnormal Lab Results
08/05/25
12:36
MCHC 32.1 L g/dL
(33.0-37.0)
RDW 17.0 H %
(11.5-14.5)
Absolute Lymphs (auto) 1.1 L 10^3/uL
(1.2-3.4)
Absolute Monos (auto) 0.8 H 10^3/uL
(0.1-0.6)
Lymphocytes % 16.4 L %
(20.5-51.1)
Monocytes % 11.0 H %
(1.7-9.3)
BUN 39 H mg/dl
(7-17)
Creatinine 1.6 H mg/dL
(0.6-1.0)
Glucose 155 H mg/dl
(70-99)
Total Protein 6.2 L g/dl
(6.3-8.2)
08/05/25 12:36
08/05/25 12:36
Vital Signs
Initial and Last Documented VS:
Initial Vital Signs
Temp Pulse Resp BP Pulse Ox
98.3 F 120 26 145/83 95
08/05/25 12:28 08/05/25 12:28 08/05/25 12:28 08/05/25 12:28 08/05/25 12:28
Last Documented Vital Signs
Temp Pulse Resp BP Pulse Ox
98.3 F 106 24 137/86 98
08/05/25 12:28 08/05/25 14:00 08/05/25 14:00 08/05/25 14:00 08/05/25 13:45
*Pulse Oximetry
SaO2: 96
Oxygen Mode of Delivery: Room air
Patient hypoxic: no
*Critical Care Note
Total Time (30-74mins, 75-104mins- exclusive of procedures): Not Applicable
ED Attending Note
-
Portions of this chart may have been created with voice recognition software.� Occasional wrong word or��sound alike� substitutions may have occurred due to the inherent limitations of voice recognition software.
Discharge Plan
Departure
Patient Disposition: Admit
Date of Disposition: 08/05/25
Time of Disposition: 14:02
Admit to: Telemetry
Presentation/result/management discussed w/ accepting MD/DO: Hospitalist
Condition: Fair
Discharge Problem:
Acute on chronic diastolic (congestive) heart failure, Stage 3a chronic kidney disease (CKD)
Prescriptions:
No Action
pioglitazone 30 mg Tablet
30 mg PO DAILY
lidocaine 5 % Adhesive Patch,Medicated
2 patch topical DAILYPRN PRN (Reason: b/l knee)
Rx Instructions:
apply 1 patch to each front knee
atorvastatin 10 mg Tablet
10 mg PO HS Qty: 0 0RF
metformin 850 mg Tablet
850 mg PO BID Qty: 0 0RF
magnesium 200 mg Tablet
400 mg PO DAILY Qty: 0 0RF
Eliquis 5 mg Tablet
5 mg PO BID Qty: 0 0RF
Jardiance 10 mg Tablet
10 mg PO DAILY Qty: 0 0RF
cholecalciferol (vitamin D3) [Vitamin D3] 50 mcg (2,000 unit) Capsule
50 mcg PO DAILY Qty: 0 0RF
metoprolol succinate 50 mg Tablet Extended Release 24 Hr
100 mg PO DAILY Qty: 60 0RF
omeprazole 40 mg Capsule,Delayed Release(Dr/Ec)
40 mg PO DAILY
Trulicity 4.5 mg/0.5 mL Pen Injector
4.5 mg SC FR
furosemide 40 mg tablet
40 mg PO BID
gabapentin 100 mg capsule
100 mg PO TID
Referrals:
Mike Stafford MD [Family Provider, Internal Medicine]
Interventions
Interventions:
*Risk Screen - Suicide Last Done: 08/05/25 12:28
*General Assessment Last Done: 08/05/25 12:28
*Neglect/Abuse Screening Last Done: 08/05/25 12:28
*ED COVID-19 Vaccine History Last Done: 08/05/25 12:28
*ED Influenza Vaccine History Last Done: 08/05/25 12:28
ED- Cardiac Assessment Last Done: 08/05/25 12:42
ED- Pulmonary Assessment Last Done: 08/05/25 12:42
Discharge Date and Time
Print Language: Greek
[2025-08-05 12:53] LABS: Hematocrit 38.0 % (37.0-47.0); Hemoglobin 12.2 g/dL (12.0-16.0); Mean Corp Hgb Conc. 32.1 g/dL (33.0-37.0); Mean Corpuscular Volume 89.0 fL (81.0-99.0); Nucleated Red Blood Cells % 0 %; Platelet Count 235 10^3/uL (130-400); Red Cell Dist. Width 17.0 % (11.5-14.5)
[2025-08-05 12:59] LABS: COVID-19 Antigen Negative (Negative)
[2025-08-05 13:19] LABS: ALT (SGPT) 14 U/L (0-35); AST (SGOT) 19 U/L (14-36); Albumin 3.8 g/dl (3.5-5.0); Alkaline Phosphatase 104 U/L (38-126); Blood Urea Nitrogen 39 mg/dl (7-17); Calcium 8.9 mg/dl (8.4-10.2); Carbon Dioxide 26 mmol/L (22-30); Chloride 104 mmol/L (98-107); Estimated Creatinine Clearance 27 ml/min; Glucose 155 mg/dl (70-99); Potassium 4.5 mmol/L (3.5-5.1); Sodium 137 mmol/L (135-145); Total Protein 6.2 g/dl (6.3-8.2); eGFR 31.21
[2025-08-05 13:23] LABS: Troponin I 0.012 ng/ml
--- NOTE | 2025-08-05 14:09 | HPS.HSE ---
Family Physician
-
Family Physician: Mike Stafford
Chief Complaint
-
shortness of breath and orthopnea
History of Present Illness
Patient is a 85-year-old female with past medical history significant for hypertension, hypercholesterolemia, atrial fibrillation and HFpEF who presented to [facility] ED for evaluation of shortness of breath and orthopnea. Patient who is primarily
Bangladeshi speaking reports that she has had symptoms for a while now, she states she came to hospital because she felt there was fluid in her chest again since it has been so hard to breath and she can not lay down at all. She also reports that
bilateral lower extremities are more swollen than normal.
Medical History
Past Medical History
Past Medical History: Reports Other
Additional Past Medical History:
hypertension
hypercholesterolemia
atrial fibrillation
HFpEF
chronic kidney disease IIIa
GRED
Past Surgical History: Reports Other
Additional Past Surgical History:
cholecystectomy
appendectomy
MOHS
left breast x3
Social History
Tobacco: Non-smoker
Alcohol: None
Living: With Family
Family History
Family History: Not pertinent
Allergies / Home Medications
Allergies reflects when Allergies were last updated in [facility].
Home Medications with original date entered in [facility]
Allergy/Medication List:
Allergies
Allergy/AdvReac Type Severity Reaction Status Date / Time
iodine Allergy Unknown Verified 08/05/25 12:25
morphine Allergy Unknown Verified 08/05/25 12:25
Home Medications
pioglitazone 30 mg tablet 30 mg PO DAILY Diabetes 07/05/25
lidocaine 5 % topical patch 2 patch topical DAILYPRN PRN b/l knee 07/06/25
apixaban 5 mg tablet (Eliquis) 5 mg PO BID Blood clot prevention/tx #0 tabs 07/11/25
atorvastatin 10 mg tablet 10 mg PO HS High cholesterol #0 tabs 07/11/25
cholecalciferol (vitamin D3) 50 mcg (2,000 unit) capsule (Vitamin D3) 50 mcg PO DAILY Supplement #0 caps 07/11/25
empagliflozin 10 mg tablet (Jardiance) 10 mg PO DAILY Diabetes #0 tabs 07/11/25
magnesium 200 mg tablet 400 mg (2 x 200 mg) PO DAILY Supplement #0 tabs 07/11/25
metformin 850 mg tablet 850 mg PO BID Diabetes #0 tabs 07/11/25
metoprolol succinate 50 mg tablet,extended release 24 hr 100 mg (2 x 50 mg) PO DAILY Blood pressure #60 tabs 07/11/25
dulaglutide 4.5 mg/0.5 mL subcutaneous pen injector (Trulicity) 4.5 mg SC FR Diabetes 08/05/25
furosemide 40 mg tablet 40 mg PO BID Heart disease/condition 08/05/25
gabapentin 100 mg capsule 100 mg PO TID mild Pain 08/05/25
omeprazole 40 mg capsule,delayed release 40 mg PO DAILY gerd 08/05/25
Review of Systems
-
History Source: Patient
Constitutional: Denies Fever or Chills
EENT: Denies Sore Throat
Respiratory: Reports Trouble Breathing (shortness of breath and orthopnea ); Denies Cough or Hemoptysis
Cardiac: Reports Other (bilateral lower extremity edema ); Denies Chest Pain, Diaphoresis, Palpitations or Syncope
Abdomen/GI: Denies Abdominal Pain, Nausea, Vomiting or Diarrhea
: Denies Dysuria, Frequency or Urgency
Musculoskeletal: Denies Joint Pain
Skin: Denies Rash
Neurological: Denies Dizzy, Headache, Weakness or Numbness
Physical Exam
Vital Signs
Vital Signs
Temp Pulse Resp BP Pulse Ox
98.3 F 105 23 140/76 98
08/05/25 12:28 08/05/25 13:45 08/05/25 13:45 08/05/25 13:16 08/05/25 13:45
Physical Exam
General: Well Developed, Well Nourished, No Apparent Distress, Conversant and Obese
HEENT: NormoCephalic, Moist mucous membranes, PERRLA, Nose Appears Normal and Ears Appear Normal
Respiratory: Clear, Non Labored Respirations and Decreased Breath Sounds (left side ); No Wheezes, Rales or Rhonchi
Cardiac: Irregular Rhythm and Peripheral Edema
GI: Soft, Non Tender, Non Distended and Normal Bowel Sounds
Musculoskeletal: No Clubbing and No Cyanosis
Skin: IV/Catheter Site
Neuro: Awake and AO x 3
Psych: Calm and Intact Judgment/Insight
Laboratory Results
-
08/05/25 12:36
08/05/25 12:36
Laboratory Results
Total Bilirubin 0.7 mg/dl (0.2-1.3) 08/05/25 12:36
AST 19 U/L (14-36) 08/05/25 12:36
ALT 14 U/L (0-35) 08/05/25 12:36
Alkaline Phosphatase 104 U/L (38-126) 08/05/25 12:36
Troponin I 0.012 ng/ml 08/05/25 12:36
Data Reviewed
-
Diagnostic Radiology: Report Reviewed by me (CXR: Dense opacification of the lower three quarters of the left chest significantly increased from recent prior study at least in part suggesting MODERATE TO LARGE LEFT PLEURAL EFFUSION.)
Medical Tests (Nuc Med, Echo, EKG etc): Report Reviewed by me (EKG: ATRIAL FIBRILLATION WITH RAPID VENTRICULAR RESPONSE LOW VOLTAGE QRS NONSPECIFIC T WAVE ABNORMALITY)
Lab Data: Labs Reviewed by me (BUN 39. Creat 1.6, Est CrCl 27, eGFR 31.21, pBNP 2450)
Impression/Plan
-
IMPRESSION/PLAN:
#shortness of breath and orthopnea 2/2 acute on chronic CHF vs. recurrent pleural effusion vs. infectious process
#large left pleural effusion
pBNP 2450
Influenza: negative
Covid: negative
CXR: Dense opacification of the lower three quarters of the left chest significantly increased from recent prior study at least in part suggesting MODERATE TO LARGE LEFT PLEURAL EFFUSION.
- Admit to telemetry
- Consult IR
- thoracentesis with cytology
- supportive care
#acute on chronic HFpEF
- Consult Cardiology
- I & Os
- daily weights
- hold PO furosemide
- IV furosemide 40mg BID
#hypertension
- continue metoprolol
#hypercholesterolemia
- continue atorvastatin
#atrial fibrillation
EKG: ATRIAL FIBRILLATION WITH RAPID VENTRICULAR RESPONSE
LOW VOLTAGE QRS
NONSPECIFIC T WAVE ABNORMALITY
- continue Eliquis and metoprolol
#chronic kidney disease IIIa
BUN 39, Creat 1.6, Est CrCl 27, eGFR 31.21
#type 2 diabetes
- AccuCheck AC & HS
- SSI
- continue Trulicity out patient
- hold metformin
- continue Jardiance and Pioglitazone
#GERD
- continue omeprazole
Code status:
DVT Prophylaxis:
--- NOTE | 2025-08-05 14:24 | W.PN.UPDATE ---
Update Note
Progress Note Update
I saw and examined the patient.
The APPLICATION RELEASE MANAGER Rory's note was reviewed and I agree with the note.
Comment: 85 y/o F (St [place] speaking), hx of GERD, Type 2 DM, HTN, HLD, Perm A. Fib, CKD stage 3a, Chronic HFpEF presents back to ER for worsening SOB at night and with laying flat. Patient recently discharged earlier this month for admission for
acute CHF and large L pleural effusion requiring IV diuretics and multiple thoracentesis. Repeat imaging this ER visit shows recurrence of large pleural effusion. Patients weight is up 3kg from prior discharge weight on 07/10.
Exam:
General: Well Developed, Well Nourished, No Apparent Distress and Comfortable
HEENT: Normocephalic and Atraumatic
Respiratory: decreased L breath sounds. no wheezes
Cardiac: S1/S2 and Irregular Rhythm
Musculoskeletal: bilateral 2+ LE edema
Skin: Warm and Dry
Neuro: Awake, Alert and Oriented
Psych: Calm
Assessment:
Acute on Chronic HFpEF
Acute symptomatic large left pleural effusion
- BNP higher than previous at 2450
- IRAD consult for thoracentesis with labs
- IV Lasix; requires intensive monitoring of I/Os, daily weights, lytes
- CBC cardiology evaluation
- salt/fluid restrictions
- prior Echo from 07/04: Normal LV size. Mild LVH. Normal LV systolic function. Estimated LVEF 65-70%. Mild/moderate tricuspid regurgitation. Estimated pulmonary artery pressure of 45 mmHg assuming a right atrial pressure of 8 mmHg. Mild/moderately
elevated PASP.
CKD stage 3a
- monitor BMP with diuresis
Essential HTN
- continue BB
Permanent atrial fibrillation
- Eliquis/BB
Hypercholesterolemia
- continue statin
Type 2 DM
- recent A1c 6.7%
- SSI
- continue Farxiga/Actos
- holding Metformin and Trulicity
Peripheral neuropathy - on gabapentin
History of Left Sided Breast Cancer s/p lumpectomy
GERD - continue PPI
DVT ppx: Eliquis
Code: Full
--- NOTE | 2025-08-05 15:13 | CON.CAR ---
Addendum entered and electronically signed by Bruce Alvarez MD 08/05/25 17:44:
I saw and evaluated the patient with the resident, Brandon White MD. I was present for the [place] portions of the history and exam and personally performed the MDM, including reviewing labs, assessing [place], and directing management plan.
I agree with the residents note with my comments/adjustments below:
85-year-old [place] speaking woman with type 2 diabetes mellitus, HFpEF, CKD, GERD, remote breast cancer presenting with progressive heart failure symptoms. The symptoms are occurring despite aggressive medical therapy in the outpatient setting.
Atypical features are a large left pleural effusion that has been shown to be an exudate, negative cytology, without a right effusion. Otherwise this seems to be typical HFpEF.
I looked at her chest x-ray. Large left effusion. I reviewed cytology report: Negative, reactive mesothelial. I reviewed her EKG on admission A-fib 115 bpm. Low voltage. Nonspecific ST and T wave changes. Reviewed her recent echocardiogram: Normal
LVEF. Normal RV function. Mild to moderate TR. PASP 45 with RA estimated 8. Aortic valve sclerosis with mild MR. Labs show hemoglobin 12.2. Creatinine 1.6. BUN 39. Glucose 155. proBNP 2450. Troponin normal.
HFpEF: IV diuresis. If able we will add MRA. Consider stopping pioglitazone. Ultimately perhaps semaglutide injection, Ozempic may have a bit more to offer than Trulicity, but 1 diabetic change this admission makes sense.
A-fib: Watch rates, rhythm known to be permanent. If remains fast will increase rate control by adding diltiazem ER or increasing beta-nathen. Continue anticoagulation.
Original Note:
Consultation
Consultation Request
Date/Time Consultation Requested: 08/05/2025
Date/Time Consultation Performed: 08/05/2025; 15:15
Requesting Provider: Ayesha Valadez
Performing Provider: Dr. Bruce Alvarez; Dr. Brandon White
Reason for Consultation: CHF exacerbation
Medical History
-
Chief Complaint: breathing problem
History of Present Illness:
85 yo F PMH HTN, HLD, permanent atrial fibrillation on apixaban, DM, HFpEF, CKD stage 3a, GERD, left breast lumpectomy p/w dyspnea and orthopnea.
Patient is primarily [place] speaking. Son, Noel, present at bedside translating.
Last week, she started experiencing dyspnea, orthopnea, generalized fatigue, and feeling cold. She also feels that her legs are more swollen. She denies chest pain. She denies and sick symptoms, sick contacts. She has permanent afib.
She also reports that she is very adherent to her medication regimen. She lives in an assisted living facility.
She was recently discharged on 07/11 for an acute on chronic HFpEF exacerbation c/b large left pleural effusion requiring thoracentesis x2 draining 3L of exudative fluid and IV diuretics. Weight from last admission was 82.7kg, and listed weight is
now 85.8kg.
Regarding medications, she took her morning dose of apixaban but has not yet taken the PM dose.
Other ROS: she denies headache, abdominal pain, dysuria, back pain.
The son reports that she is very sensitive to insulin and that dulaglutide and empagliflozin together provides good control of her blood glucose.
Past Medical History
Past Medical History: Arrhythmias, CHF, HTN, Hypercholesterolemia and NIDDM
Past Surgical History: Appendectomy, Cholecystectomy and Other (left breast x2, MOHS)
Social History
Tobacco: Non-Smoker
Alcohol: None
Drug: None
Living: Assisted Living
Allergies / Home Medications
Allergy/AdvReac Type Severity Reaction Status Date / Time
iodine Allergy Unknown Verified 08/05/25 12:25
morphine Allergy Unknown Verified 08/05/25 12:25
�Medication �Instructions �Recorded �Confirmed �Type
pioglitazone 30 mg tablet 30 mg PO DAILY Diabetes 07/05/25 08/05/25 History
lidocaine 5 % topical patch 2 patch topical DAILYPRN PRN b/l 07/06/25 08/05/25 History
knee
apixaban 5 mg tablet (Eliquis) 5 mg PO BID Blood clot 07/11/25 08/05/25 Rx
prevention/tx #0 tabs
atorvastatin 10 mg tablet 10 mg PO HS High cholesterol #0 07/11/25 08/05/25 Rx
tabs
cholecalciferol (vitamin D3) 50 50 mcg PO DAILY Supplement #0 caps 07/11/25 08/05/25 Rx
mcg (2,000 unit) capsule (Vitamin
D3)
empagliflozin 10 mg tablet 10 mg PO DAILY Diabetes #0 tabs 07/11/25 08/05/25 Rx
(Jardiance)
magnesium 200 mg tablet 400 mg (2 x 200 mg) PO DAILY 07/11/25 08/05/25 Rx
Supplement #0 tabs
metformin 850 mg tablet 850 mg PO BID Diabetes #0 tabs 07/11/25 08/05/25 Rx
metoprolol succinate 50 mg 100 mg (2 x 50 mg) PO DAILY Blood 07/11/25 08/05/25 Rx
tablet,extended release 24 hr pressure #60 tabs
dulaglutide 4.5 mg/0.5 mL 4.5 mg SC FR Diabetes 08/05/25 08/05/25 History
subcutaneous pen injector
(Trulicity)
furosemide 40 mg tablet 40 mg PO BID Heart 08/05/25 08/05/25 History
disease/condition
gabapentin 100 mg capsule 100 mg PO TID mild Pain 08/05/25 08/05/25 History
omeprazole 40 mg capsule,delayed 40 mg PO DAILY gerd 08/05/25 08/05/25 History
release
Review of Systems
-
History Source: Patient
Constitutional: No Symptoms
EENT: No Symptoms
Respiratory: Trouble Breathing
Cardiac: No Symptoms
Abdomen/GI: No Symptoms
: No Symptoms
Musculoskeletal: Edema
Skin: No Symptoms
Neurological: No Symptoms
Endocrine: No Symptoms
Physical Exam
Vital Signs
Temp Pulse Resp BP Pulse Ox
98.3 F 106 24 137/86 98
08/05/25 12:28 08/05/25 14:00 08/05/25 14:00 08/05/25 14:00 08/05/25 13:45
Lab Results
08/05/25 12:36
08/05/25 12:36
Troponin I 0.012 ng/ml 08/05/25 12:36
Eiv-M-Slzuvbbsovv Pept 2450 pg/ml 08/05/25 12:36
proBNP: 2450 (last admission: 1560)
EKG 08/05/2025; 12:26
Vent. Rate : 115 BPM Atrial Rate : 119 BPM
P-R Int : * ms QRS Dur : 96 ms
QT Int : 326 ms P-R-T Axes : * 10 235 degrees
QTcB Int : 450 ms
ATRIAL FIBRILLATION WITH RAPID VENTRICULAR RESPONSE
LOW VOLTAGE QRS
NONSPECIFIC T WAVE ABNORMALITY
ABNORMAL ECG
WHEN COMPARED WITH ECG OF 09-Jul-2025 11:50,
VENT. RATE HAS INCREASED by 40 bpm
NON-SPECIFIC CHANGE IN ST SEGMENT IN LATERAL LEADS
NONSPECIFIC T WAVE ABNORMALITY, WORSE IN INFERIOR LEADS
NONSPECIFIC T WAVE ABNORMALITY, WORSE IN ANTEROLATERAL LEADS
CXR 08/05/2025; 12:49
FINDINGS: There is dense opacification of the lower three quarters of the left hemithorax, significantly obscuring the left heart border and significantly increased in comparison to recent prior study at least in part suggesting a moderate to large
left pleural effusion, increased. There is no pneumothorax, right pleural effusion or suspected mediastinal shift. There are likely degenerative changes with dextroscoliosis of the thoracic spine.
IMPRESSION:
Dense opacification of the lower three quarters of the left chest significantly increased from recent prior study at least in part suggesting MODERATE TO LARGE LEFT PLEURAL EFFUSION.
Last Echocardiogram 07/08/2025
SUMMARY
1. Normal LV size. Mild LVH. Normal LV systolic function. Estimated LVEF 65-70%.
2. Mild/moderate tricuspid regurgitation. Estimated pulmonary artery pressure of 45 mmHg assuming a right atrial pressure of 8 mmHg. Mild/moderately elevated PASP.
3. There is evidence of pleural effusion.
4. No prior study available for comparison.
Physical Exam
General: Comfortable
Respiratory: Other (diminished breath sounds on Left side)
Cardiac: Irregular Rhythm and Other (no murmurs on my exam)
GI: Soft and Non Tender
Genito-urinary: No Costovertebral Tender
Musculoskeletal: Edema (2-3+ pitting edema)
Skin: Warm
Neuro: AO x 3, No Motor Deficits and Nonfocal/Grossly Intact
Psych: Calm
Impression / Plan
-
85 yo F PMH HTN, HLD, permanent atrial fibrillation on apixaban, DM, HFpEF, CKD stage 3a, GERD, left breast lumpectomy p/w dyspnea and orthopnea and found to have large L pleural effusion c/f acute on chronic HFpEF exacerbation.
Acute on chronic HFpEF exacerbation
- elevated proBNP from prior
- Cr of 1.6 (1.5 from discharge, baseline appears to be 1.0)
- dyspnea, orthopnea is c/w exacerbation
- Last echo in 07/08/2025 showed EF 65-70%
- GDMT appears to be: SGLT2i (empagliflozin)
- She is on furosemide 40mg PO bid at home
- Weight is also recorded to be higher (3kg)
Plan:
- Diuresis with IV furosemide 40mg BID
- Continue empagliflozin
- Please discontinue pioglitazone given HFpEF
- Consider thoracentesis with IR and consider repeat CT chest after thoracentesis and diuresis to better evaluate
- Roof Truss Builder on salt and fluid restrictive diet upon discharge
- During this hospital stay, we will consider adding on MRA
Recurrent left pleural effusion
- CXR shows large left pleural effusion that has recurred within 1 month
- prior admission, 2 thoracenteses kenyon off 1.5 L fluid each time, was found to be exudative last admission (pleural protein of 3.7 vs total serum protein of 6.2)
- Unilateral pleural effusion that is exudative raises concern for an underlying malignancy (hx of lumpectomy on left side as well)
- Other etiology could be infectious, pneumonia, TB, or PE
- Cytology prior admission was negative for malignant cells
- Heart failure would be expected to present transudative
- that said elevated proBNP could point toward a component of heart failure exacerbation as well.
- No signs of an infection (normal WBC, afebrile, she does not complain of any symptoms)
Plan:
- Consider thoracentesis with IR and consider repeat CT chest after thoracentesis and diuresis to better evaluate
- Cytology prior admission was negative for malignant cells
- Could consider pulmonary consult
Permanent atrial fibrillation
- HR appears low 100s
- Continue metoprolol succinate 100mg
- She reports she took apixaban on 08/05 AM dose
- Monitor on telemetry
- If HR remains elevated, will advance rate control.
DM
- Please discontinue pioglitazone given HFpEF
- Would hold metformin while admitted inpatient
- Consider semaglutide for additional cardioprotective effects vs. dulaglutide
HTN
- metoprolol succinate 100mg at home
- On doxazosin 8mg per chart review as outpatient
- valsartan-HCTZ was d/c'ed at the last discharge
HLD
- continue atorvastatin
[2025-08-05 15:34] LABS: Glucose - Point of Care 129 mg/dl (70-99)
--- NOTE | 2025-08-05 17:32 | EDCM ---
CM reviewed chart and met with pt and son bedside in ED. Pt is Hungarian speaking. Lives alone in 11th floor apartment with elevator access in [place]. Son Noel lives close to her. Granddaughter Diane should be primary contact per son as she is a
nurse and lives in [place].
Pt needs assistance with ADLs, personal care and medication management. Has [employer] [place] every day during the day, son unsure of agency. She is current with [facility] for RN, PT, OT. Son notified them of admission.
Pt ambulates with RW, also has glucometer, cane, shower chair and grab rails.
[facility] in [place].
PCP: Mike Stafford
Pharmacy: [facility]
CM will continue to follow for all discharge planning needs.
[2025-08-05] MEDS: LASIX 40 MG IV (18:33)
[2025-08-05 18:36] LABS: Glucose - Point of Care 101 mg/dl (70-99)
--- NOTE | 2025-08-05 19:58 | W.PN.UPDATE ---
Update Note
Progress Note Update
Eliquis dose lowered by pharmacy due to her renal function ( now Eliquis 2.5mg BID versus 5 mg BID) Dose to start tonight.
[2025-08-05] MEDS: ELIQUIS 2.5 MG PO (20:18)
[2025-08-05] MEDS: LIPITOR 10 MG PO (20:18)
[2025-08-05 21:10] LABS: Glucose - Point of Care 183 mg/dl (70-99)
[2025-08-05] MEDS: NEURONTIN 100 MG PO (22:18)
[2025-08-05] MEDS: TUMS CHEWABLE TABLET 200 MG PO (22:18)
[2025-08-06] VITALS (14 sets, daily range): BP systolic 89–149; BP diastolic 64–86; BMI 31.3
--- NOTE | 2025-08-06 07:40 | CON.PUL ---
Consultation
Consultation Request
Date/Time Consultation Requested: 08/06/2025
Date/Time Consultation Performed: 08/06/2025
Medical History
-
Chief Complaint: Shortness of breath
History of Present Illness:
Patient is a 85-year-old female who presents to the hospital with worsening shortness of breath and orthopnea. Patient has known history of hypertension hyperlipidemia, A-fib and heart failure with preserved ejection fraction who recently was
hospitalized for similar symptoms. Patient had thoracentesis performed for left-sided pleural effusion diagnosed in 06/2025. Patient had thoracentesis performed x 2 with 1200 to 1500 mL fluid removed suggestive of exudative by protein criteria and
transudate by LDH criteria. Postthoracentesis x-ray did not show full reexpansion of the lung raising concern for possibly trapped lung versus loculations. Patient reports that after discharge she did well for a while and then again progressively
developed worsening shortness of breath in addition to orthopnea. Bilateral lower extremity edema also worsened. The symptoms brought her back to the emergency room. Repeat imaging showed a large left-sided pleural effusion. Pulmonary
consultation was requested for further input.
I used hiv counselor service to communicate with patient.
Past Medical History
Past Medical History: Reports Other
Additional Past Medical History:
hypertension
hypercholesterolemia
atrial fibrillation
HFpEF
chronic kidney disease IIIa
GRED
Past Surgical History: Reports Other
Additional Past Surgical History:
cholecystectomy
appendectomy
MOHS
left breast x3
Social History
Tobacco: Non-smoker
Alcohol: None
Living: With Family
Family History
Family History: Not pertinent
Allergies / Home Medications
Allergies
Allergy/AdvReac Type Severity Reaction Status Date / Time
iodine Allergy Unknown Verified 08/05/25 12:25
morphine Allergy Unknown Verified 08/05/25 12:25
Home Medications
�Medication �Instructions �Recorded �Confirmed �Last Taken �Type
pioglitazone 30 mg tablet 30 mg PO DAILY Diabetes 07/05/25 08/05/25 08/05/25 History
lidocaine 5 % topical patch 2 patch topical DAILYPRN PRN b/l 07/06/25 08/05/25 08/05/25 History
knee
apixaban 5 mg tablet (Eliquis) 5 mg PO BID Blood clot 07/11/25 08/05/25 08/05/25 Rx
prevention/tx #0 tabs
atorvastatin 10 mg tablet 10 mg PO HS High cholesterol #0 07/11/25 08/05/25 08/04/25 Rx
tabs
cholecalciferol (vitamin D3) 50 50 mcg PO DAILY Supplement #0 caps 07/11/25 08/05/25 08/05/25 Rx
mcg (2,000 unit) capsule (Vitamin
D3)
empagliflozin 10 mg tablet 10 mg PO DAILY Diabetes #0 tabs 07/11/25 08/05/25 08/05/25 Rx
(Jardiance)
magnesium 200 mg tablet 400 mg (2 x 200 mg) PO DAILY 07/11/25 08/05/25 08/05/25 Rx
Supplement #0 tabs
metformin 850 mg tablet 850 mg PO BID Diabetes #0 tabs 07/11/25 08/05/25 08/05/25 Rx
metoprolol succinate 50 mg 100 mg (2 x 50 mg) PO DAILY Blood 07/11/25 08/05/25 08/05/25 Rx
tablet,extended release 24 hr pressure #60 tabs
dulaglutide 4.5 mg/0.5 mL 4.5 mg SC FR Diabetes 08/05/25 08/05/25 08/02/25 History
subcutaneous pen injector
(Trulicity)
furosemide 40 mg tablet 40 mg PO BID Heart 08/05/25 08/05/25 08/05/25 History
disease/condition
gabapentin 100 mg capsule 100 mg PO TID mild Pain 08/05/25 08/05/25 08/05/25 History
omeprazole 40 mg capsule,delayed 40 mg PO DAILY gerd 08/05/25 08/05/25 08/05/25 History
release
Review of Systems
-
Hematologic/Lymphatic: Other (All 14 systems reviewed and negative except as stated above in the history of present illness.)
Vitals / Labs / Diagnostic Testing
Vital Signs
Temp Pulse Resp BP Pulse Ox
98.1 F 90 18 137/77 94
08/06/25 03:33 08/06/25 03:33 08/06/25 03:33 08/06/25 03:33 08/06/25 03:33
Microbiology
08/05/25 12:36 Nasal Swab Influenza Types A & B (CLAUDIO) - Final
Negative for Influenza A & B, NAAT
Negative results must be combined with clinical observations
and patient history.
Nucleic Acid Amplification test (NAAT)performed on the
[employer] platform.
Diagnostic Testing:
Physical Exam
-
HEENT: Normocephalic
Cardiovascular: S1/S2 and Peripheral Edema
Respiratory: Other (Decreased air entry in the left hemithorax)
GI: Soft and Non Distended
Neurology: Awake and Alert
Skin: Warm
General: Comfortable
Assessment
-
#. Left sided pleural effusion, recurrent
- Cytology negative on 07/06 and 07/09. (mesothelial cells, macrophages present, light lymphocyte background inflammation)
- Pleural fluid cultures negative x 2.
- Exudative by protein criteria however LDH not significantly elevated. Predominantly mononuclear cells suggestive of chronicity. Exudative versus pseudo exudative in the presence of diuresis. Fluid triglyceride less than 30, rules out
chylothorax. Presence of mesothelial cells makes tuberculosis unlikely.
-Considering suboptimal lung reexpansion post-thoracentesis x 2, recommend placing a thin bore chest tube for complete drainage and then evaluate if there is any degree of lung entrapment or loculations. Follow-up chest x-ray in a.m.
-Differential diagnosis include malignancy, postradiation changes with h/o left sided breast cancer s/p lumpectomy and radiation, parapneumonic effusion versus pseudo exudate in the setting of diuresis.
#2. Acute on chronic HFpEF
- Continue IV Lasix, cardiology service on case
#. Pulmonary hypertension, mild
- PASP 45 mm on ECHO
- Suspect primarily group II with underlying congestive heart failure
Other medical diagnoses:
- Chronic atrial fibrillation
- Hypertension, hyperlipidemia
- Chronic kidney disease
- Diabetes
- H/o Left sided breast cancer, s/p surgery x 3 and radiation therapy, 32 sessions per patient as well as gamma radiation therapy. Details not available.
Total time spent on this consultation/encounter __65__ minutes which includes review of history, physical exam, medications, laboratory data, personal review of imaging, extensive review of outpatient records, discussion with care team and
respiratory therapy.
Data:
ECHO 06/2025: 1. Normal LV size. Mild LVH. Normal LV systolic function. Estimated LVEF 65-70%.
2. Mild/moderate tricuspid regurgitation. Estimated pulmonary artery pressure of 45 mmHg assuming a right atrial pressure of 8 mmHg. Mild/moderately elevated PASP.
3. There is evidence of pleural effusion.
4. No prior study available for comparison.
Lexiscan 03/2025: Negative ECG for ischemia given the pharmacological study.
Normal Lexiscan nuclear stress test.
Systolic function is normal. The ejection fraction is 62%.
Stress Risk is low risk study, but the patient may be at moderate risk (risk of 1 - 3% [place] or /year) due to pharmacologic agent used.
[2025-08-06 07:41] LABS: Hematocrit 35.8 % (37.0-47.0); Hemoglobin 11.9 g/dL (12.0-16.0); Mean Corp Hgb Conc. 33.2 g/dL (33.0-37.0); Mean Corpuscular Volume 87.1 fL (81.0-99.0); Platelet Count 229 10^3/uL (130-400); Red Cell Dist. Width 16.8 % (11.5-14.5)
[2025-08-06 07:56] LABS: Blood Urea Nitrogen 34 mg/dl (7-17); Calcium 9.2 mg/dl (8.4-10.2); Carbon Dioxide 25 mmol/L (22-30); Chloride 106 mmol/L (98-107); Estimated Creatinine Clearance 30 ml/min; Glucose 119 mg/dl (70-99); Potassium 3.8 mmol/L (3.5-5.1); Sodium 135 mmol/L (135-145); eGFR 36.64
--- NOTE | 2025-08-06 07:59 | W.PN.CD ---
Addendum entered and electronically signed by Bruce Alvarez MD 08/06/25 12:52:
I saw and evaluated the patient with the resident Brandon White MD. I was present for the [place] portions of the history and exam and personally performed the MDM, including reviewing labs, assessing [ ], and directing management plan. I agree with
the residents note with my comments/adjustments below:
I spoke with pulmonary and given the extent of the XRT pt has received he suspects component of trapped lung added to HF. May need pleurodesis.
Imp/Plan
Left effusion: mixed heart failure and left lung disease. Plan tap to dry then CT Chest, diuresis, may need pleurodesis
HFpEF, Lasix and SGLT2-I, for now now MRA or RAAS-I given variable renal function, later reassess.
Perm AFib, rate good on BB
Eliquis dosing: Cr now less than 1.5 so back to 5 mg BID.
Original Note:
Today's Communication / Plan
-
- Continue IV furosemide 40mg bid
- Continue dapagliflozin (GDMT)
- Continue metoprolol succinate
- Follow-up IR consult on thoracentesis
- Monitor I/Os, weight, creatinine
- Monitor telemetry
- Recommendations are not final until discussed with Dr. Alvarez, cardiology attg
Impression / Plan
-
85 yo F PMH HTN, HLD, permanent atrial fibrillation on apixaban, DM, HFpEF, CKD stage 3a, GERD, left breast lumpectomy p/w dyspnea and orthopnea and found to have large L pleural effusion c/f acute on chronic HFpEF exacerbation.
Spoke with patient using historical interpreter (Katiana, [id number]). She is feeling not too bad, and is keen on knowing what/when IR will evaluate for thoracentesis. She denies dyspnea, chest pain today. Still feels cold. Went to bathroom x2, feels that her edema
is still there. Denies headache or abdominal pain.
VSS, telemetry review showed atrial firbillation. Exam n/f irregular pulse, diminished breath sounds left lung, 1-2+ pitting edema bilaterally
Cr 1.4 from 1.6, net I/Os shows +480mL, recorded weight is now 82.6kg.
Acute on chronic HFpEF exacerbation
- Last echo in 07/08/2025 showed EF 65-70%
- GDMT appears to be: SGLT2i (empagliflozin)
- She is on furosemide 40mg PO bid at home
- Weight recorded is now 82.6kg
- I/Os: net positive 480 mL
- Cr 1.4 from 1.6
Plan:
- Continue IV furosemide 40mg BID
- Monitor I/Os, weight, Cr
- Continue dapagliflozin (while inpatient)
- Follow-up IR consult for thoracentesis, and consider repeat CT chest after thoracentesis and diuresis to better evaluate
- [employer] on salt and fluid restrictive diet upon discharge
- During this hospital stay, we will consider adding on MRA depending on clinical course
Recurrent left pleural effusion
- CXR in ED shows large left pleural effusion that has recurred within 1 month
- prior admission, 2 thoracenteses kenyon off 1.5 L fluid each time, was found to be exudative last admission (pleural protein of 3.7 vs total serum protein of 6.2)
- Cytology was negative for malignant cells in last admission
- Heart failure can present with exudative effusions as well
- Afebrile, no leukocytosis reassures against infection at this time
Plan:
- Follow-up IR consult for thoracentesis, and consider repeat CT chest after thoracentesis and diuresis to better evaluate
Permanent atrial fibrillation
- HR appears 90-100s
- Continue metoprolol succinate 100mg
- Per pharmacy, apixaban dose adjusted to 2.5mg bid given renal function
- Monitor on telemetry
- If HR remains elevated, will advance rate control.
DM
- Would hold metformin while admitted inpatient
- Can consider semaglutide for additional cardioprotective effects vs. dulaglutide, but 1 diabetic change may be enough for this admission
HTN
- metoprolol succinate 100mg at home, continue inpatient
- On doxazosin 8mg per chart review as outpatient
- valsartan-HCTZ was d/c'ed at the last discharge
HLD
- continue atorvastatin
Physical Exam
Vital Signs/Labs
Vital Signs
Temp Pulse Resp BP Pulse Ox
98.1 F 90 18 137/77 94
08/06/25 03:33 08/06/25 03:33 08/06/25 03:33 08/06/25 03:33 08/06/25 03:33
08/05/25 08/06/25 08/07/25
06:59 06:59 06:59
Actual Weight 82.696 kg
08/06/25 06:52
08/06/25 06:52
08/05/25
12:36
Wxi-[id number] Pept 2450
LAB Results
08/05/25
12:36
Troponin I 0.012
Physical Exam
Constitutional: Comfortable
Cardiovascular: Rhythm/rate is irregular and Other (1-2+ pitting edema bilaterally in lower extremities)
Respiratory: Respiratory effort normal and Other (diminished breath sounds on left side)
GI: Soft and Non tender
Neuro/Psych: Alert and Oriented
Data Reviewed
-
Date of Service: August 06, 2025
[2025-08-06 08:01] LABS: LDH 175 U/L (120-246); Total Protein 5.8 g/dl (6.3-8.2)
[2025-08-06 08:07] LABS: Glucose - Point of Care 112 mg/dl (70-99)
[2025-08-06] MEDS: NEURONTIN 100 MG PO ×3 (09:03→21:08)
[2025-08-06] MEDS: TOPROL XL 100 MG PO (09:03)
[2025-08-06] MEDS: LASIX 40 MG IV ×2 (09:03→17:42)
[2025-08-06 09:04] LABS: Glycohemoglobin (HgbA1c) 7.1 % (4.0-5.9)
[2025-08-06] MEDS: PROTONIX 40 MG PO (09:04)
[2025-08-06] MEDS: FARXIGA 10 MG PO (09:04)
[2025-08-06] MEDS: MAGNESIUM OXIDE 400 MG PO (09:05)
--- NOTE | 2025-08-06 09:27 | W.PN.HOSP.TC ---
Today's Communication/Plan
-
chest tube today with IR; d/w pulmonary
hold AM Eliquis for procedure
continue diuresis; follow cards recs
son updated
Assessment / Plan
Assessment / Plan
Assessment:
Acute on Chronic HFpEF
Acute symptomatic large left pleural effusion
- BNP higher than previous at 2450
- IRAD consult for thin bore chest tube placement
- IV Lasix; requires intensive monitoring of I/Os, daily weights, lytes
- CBC cardiology following
- salt/fluid restrictions
- prior Echo from 07/04: Normal LV size. Mild LVH. Normal LV systolic function. Estimated LVEF 65-70%. Mild/moderate tricuspid regurgitation. Estimated pulmonary artery pressure of 45 mmHg assuming a right atrial pressure of 8 mmHg. Mild/moderately
elevated PASP.
CKD stage 3a
- monitor BMP with diuresis
Essential HTN
- continue BB
Permanent atrial fibrillation
- Eliquis/BB
Hypercholesterolemia
- continue statin
Type 2 DM
- recent A1c 6.7%
- patients son is refusing SSI
- continue Farxiga
- hold Actos
- holding Metformin and Trulicity
Peripheral neuropathy - on gabapentin
History of Left Sided Breast Cancer s/p lumpectomy 10 years
- also had whole radiation 10 years ago
- recent Mammogram 1 week ago was unremarkable per Son; she is followed by Dr. Jono Vides ([facility])
GERD - continue PPI
Hx of osteoporosis
- on outpatient Evenity injections
DVT ppx: Eliquis (AM dose held for chest tube)
Code: Full
Anticipated Discharge: > 48 hours
Subjective/Interval History
-
Date of Service: August 06, 2025
no new complaints - front desk clerk Katiana [id number]
for IR chest tube placement today
Objective Data
-
Labs:
Laboratory Results
08/06/25
06:52
WBC 6.0
Hgb 11.9 L
Hct 35.8 L
Plt Count 229
Sodium 135
Potassium 3.8
Chloride 106
Carbon Dioxide 25
BUN 34 H
Creatinine 1.4 H
Glucose 119 H
Calcium 9.2
Vital Signs:
Vital Signs
Temp Pulse Resp BP Pulse Ox
98.1 F 113 16 146/86 95
08/06/25 07:17 08/06/25 07:17 08/06/25 07:17 08/06/25 07:17 08/06/25 07:17
I&O
08/05/25 08/06/25 08/07/25
06:59 06:59 06:59
Intake Total 480 / 480
Balance 480 / 480
Physical Exam
-
General: No Apparent Distress
HEENT: Normocephalic and Atraumatic
Respiratory: Decreased Breath Sounds (L side); Negative Wheezes
Cardiac: Regular Rhythm and S1/S2
GI: Soft and Nontender
Genito-urinary: No Costovertebral Tender
Neuro: AO x 3
Psych: Calm
Data Reviewed
-
Total Time Spent with Patient (in minutes): 51
Labs: Labs Reviewed by me
[2025-08-06] MEDS: ELIQUIS PO (09:48)
[2025-08-06 12:19] LABS: Glucose - Point of Care 112 mg/dl (70-99)
[2025-08-06 16:00] LABS: Body Fluid Second Tech DW
[2025-08-06 16:38] LABS: Glucose - Point of Care 96 mg/dl (70-99)
--- NOTE | 2025-08-06 17:11 | CM ---
Pt on diuretics.
Pt had chest tube placement.
Pt is [place] speaking.
Current with [facility]
Will need PT for dc planning.
PLAN Pt for dc planning.
[2025-08-06] MEDS: ULTRAM 25 MG PO (17:58)
--- NOTE | 2025-08-06 18:23 | PTCARENOTE ---
Received pt back from IR. Pt with L chest tube insertion. Dressing, CDI. Pt drained 2,694 ml of clear, yellow fluid out of chest tube since insertion to now. Pt complaining of chest pain and cough. Notified release and technical records clerk, came to bedside.
Instructed to leave pt off wall suction and remain on water seal. Pain expected post procedure, pt educated with use of arrow point attacher and administered PRN pain medication. Pt remained on bedrest for 2 hours ([id number]) but now walking to bathroom with
no issues. Pt eating dinner, no further complaints at this time. Educated pt on importance to call for assistance with ambulation, pt stated understanding. Bed alarm in place.
[2025-08-06] MEDS: OFIRMEV 100 IV (19:58)
[2025-08-06] MEDS: ELIQUIS 5 MG PO (19:59)
[2025-08-06] MEDS: LIPITOR 10 MG PO (21:08)
[2025-08-06 21:35] LABS: Glucose - Point of Care 257 mg/dl (70-99)
[2025-08-07] VITALS (8 sets, daily range): BP systolic 98–141; BP diastolic 54–76; PULSE 93; O2SAT 96–97; BMI 29.4
--- NOTE | 2025-08-07 05:46 | PTCARENOTE ---
chest tube remains off wall suction and on water seal during shift per daytime director emergency instructions. SHAKE SAWYER made aware, no new orders at this time. plan of care ongoing.
[2025-08-07 06:46] LABS: Hematocrit 39.7 % (37.0-47.0); Hemoglobin 12.9 g/dL (12.0-16.0); Mean Corp Hgb Conc. 32.5 g/dL (33.0-37.0); Mean Corpuscular Volume 89.0 fL (81.0-99.0); Platelet Count 233 10^3/uL (130-400); Red Cell Dist. Width 16.7 % (11.5-14.5)
[2025-08-07 07:11] LABS: Blood Urea Nitrogen 36 mg/dl (7-17); Calcium 8.6 mg/dl (8.4-10.2); Carbon Dioxide 26 mmol/L (22-30); Chloride 105 mmol/L (98-107); Estimated Creatinine Clearance 29 ml/min; Glucose 145 mg/dl (70-99); Potassium 3.8 mmol/L (3.5-5.1); Sodium 138 mmol/L (135-145); eGFR 36.64
[2025-08-07 07:19] LABS: Glucose - Point of Care 139 mg/dl (70-99)
[2025-08-07] MEDS: NEURONTIN 100 MG PO ×3 (07:41→21:25)
[2025-08-07] MEDS: FARXIGA 10 MG PO (07:41)
[2025-08-07] MEDS: ELIQUIS PO (07:41)
[2025-08-07] MEDS: LASIX 40 MG IV ×2 (07:42→16:54)
[2025-08-07] MEDS: MAGNESIUM OXIDE 400 MG PO (07:42)
[2025-08-07] MEDS: PROTONIX 40 MG PO (07:42)
[2025-08-07] MEDS: TOPROL XL 100 MG PO (07:42)
--- NOTE | 2025-08-07 07:53 | W.PN.PUL3 ---
Today's Communication / Plan
-
- Chest tube to water seal, no suction
- Await pleural fluid cytology
- F/u CXR in AM
- Continue diuresis, pain control
Assessment
-
Patient is a 85-year-old female who presents to the hospital with worsening shortness of breath and orthopnea. Patient has known history of hypertension hyperlipidemia, A-fib and heart failure with preserved ejection fraction who recently was
hospitalized for similar symptoms. Patient had thoracentesis performed for left-sided pleural effusion diagnosed in 06/2025. Patient had thoracentesis performed x 2 with 1200 to 1500 mL fluid removed suggestive of exudative by protein criteria and
transudate by LDH criteria. Postthoracentesis x-ray did not show full reexpansion of the lung raising concern for possibly trapped lung versus loculations. Patient reports that after discharge she did well for a while and then again progressively
developed worsening shortness of breath in addition to orthopnea. Bilateral lower extremity edema also worsened. The symptoms brought her back to the emergency room. Repeat imaging showed a large left-sided pleural effusion. Pulmonary
consultation was requested for further input.
#. Left sided pleural effusion, recurrent with trapped lung physiology
-Differential diagnosis include malignancy, postradiation changes with h/o left sided breast cancer s/p lumpectomy and radiation, parapneumonic effusion etc. Volume overload likely exacerbated the effusion.
- Pneumothorax ex-vacuo with poor re-expansion of LLL again suggestive of trapped lung in the setting of h/o radiation therapy
- Cytology negative on 07/06 and 07/09. (mesothelial cells, macrophages present, light lymphocyte background inflammation). Cytology from 08/06 pending.
- Pleural fluid cultures negative x 2.
- Exudative by protein criteria however LDH not significantly elevated. Predominantly mononuclear cells suggestive of chronicity. Exudative versus pseudo exudative in the presence of diuresis. Fluid triglyceride less than 30, rules out
chylothorax. Presence of mesothelial cells makes tuberculosis unlikely.
- s/p chest tube placement 08/06, 3.1 Ltr fluid removed so far. Keep on water seal.
#2. LLL ground glass opacities.
- No obvious mass noted
- With trapped LLL physiology, these changes might be chronic with h/o radiation therapy. Re-expansion pulmonary edema also in differential diagnosis
- Continue diuresis, patient is afebrile, hold off antibiotics for now. O2 as needed. D/c Chest tube suction
- If GGO changes persist in coming weeks, will pursue Bronchoscopy and BAL.
#3. Pneumothorax ex vacuo.
- Pneumothorax noted post chest tube placement, Ex-vacuo due to trapped Lung, particularly LLL
- No air leak. Stay off suction, continue water seal
- With prior radiation therapy, surgical decortication might be challenging.
- Once chest tube removed, patient will re-accumulate some fluid which is likely to persist detention.
#4. Acute on chronic HFpEF
- Continue IV Lasix, cardiology service on case
#5. Pulmonary hypertension, mild
- PASP 45 mm on ECHO
- Suspect primarily group II with underlying congestive heart failure
Other medical diagnoses:
- Chronic atrial fibrillation
- Hypertension, hyperlipidemia
- Chronic kidney disease
- Diabetes
- H/o Left sided breast cancer, s/p surgery x 3 and radiation therapy, 32 sessions per patient as well as gamma radiation therapy. Details not available.
Total time spent on this consultation/encounter __38__ minutes which includes review of history, physical exam, medications, laboratory data, personal review of imaging, extensive review of outpatient records, discussion with care team and
respiratory therapy.
Data:
ECHO 06/2025: 1. Normal LV size. Mild LVH. Normal LV systolic function. Estimated LVEF 65-70%.
2. Mild/moderate tricuspid regurgitation. Estimated pulmonary artery pressure of 45 mmHg assuming a right atrial pressure of 8 mmHg. Mild/moderately elevated PASP.
3. There is evidence of pleural effusion.
4. No prior study available for comparison.
Lexiscan 03/2025: Negative ECG for ischemia given the pharmacological study.
Normal Lexiscan nuclear stress test.
Systolic function is normal. The ejection fraction is 62%.
Stress Risk is low risk study, but the patient may be at moderate risk (risk of 1 - 3% [place] or /year) due to pharmacologic agent used.
Subjective Data
-
Date of Service:
Date of Service: August 07, 2025
Subjective:
Patient comfortably sitting in bed in no acute distress.
Review of Systems
Genitourinary: Other (Breathing improved, reports left-sided pleuritic discomfort related to chest tube.)
Objective Data
Data Reviewed
Vital Signs / I&O / Oxygen:
Vital Signs
Temp Pulse Resp BP Pulse Ox
98.1 F 93 18 141/76 93
08/07/25 03:12 08/07/25 03:12 08/07/25 03:12 08/07/25 03:12 08/07/25 03:12
Intake and Output
08/06/25 08/07/25 08/08/25
06:59 06:59 06:59
Intake Total 480 / 480 820 / 820
Output Total 315 / 315
Balance 480 / 480 505 / 505
SaO2 93
Physical Exam
General: Comfortable
HEENT: Normocephalic
Cardiovascular: S1-S2
Respiratory: Clear
GI: Soft and Non Distended
Neurology: Awake and Alert
Skin: Warm
Labs/Micro/Reports
Lab Data
08/07/25 06:10
08/07/25 06:10
Microbiology
08/06/25 14:59 Pleural Fluid Gram Stain - Preliminary
08/06/25 14:59 Pleural Fluid Fungal Culture - Preliminary
Culture in progress.
Positive cultures are reported as soon as detected.
Final report to follow in four to five weeks.
08/05/25 12:36 Nasal Swab Influenza Types A & B (CLAUDIO) - Final
Negative for Influenza A & B, NAAT
Negative results must be combined with clinical observations
and patient history.
Nucleic Acid Amplification test (NAAT)performed on the
[employer] platform.
--- NOTE | 2025-08-07 09:39 | W.PN.CD ---
Addendum entered and electronically signed by Bruce Alvarez MD 08/07/25 16:22:
I saw and evaluated the patient with the resident. I was present for the [place] portions of the history and exam and personally performed the MDM, including reviewing labs, assessing Ms. Cote, and directing management plan. I agree with the
residents note with my comments/adjustments below:
We hope dapa will be affordable for home use.
Will need to see if pulmonary will suggest moving to pleurodesis.
CT Scan 08/07/2025:
1. Left pleural effusion is significantly improved/resolved compared to prior CT. Small left pneumothorax. Left sided tail chest tube at the left lung base within the pleural space.
2. Diffuse groundglass opacity throughout the left upper and left lower lobes, with some sparing of the left lung apex. Findings are likely infectious or inflammatory in etiology.
3. Severe coronary arterial calcification. Please correlate with symptoms of and risk factors for coronary artery disease, with further workup as clinically appropriate.
4. Mild aneurysmal dilation of the ascending thoracic aorta, measuring 4 cm in diameter.
5. 2 cm right thyroid nodule, unchanged. Consider nonemergent thyroid ultrasound for further characterization.
I do not think diuretics and HF meds will keep left effusion from recurring.
At 85 dense cor calcification will be treated with risk factor modification unless angina develops and does not respond to medical treatment. The 4 cm Asc Ao will be treated conservatively and monitored.
She feels better with the fluid off her lung.
If successful control of left effusion we can try Lasix one time a day at discharge.
Original Note:
Today's Communication / Plan
-
- Continue IV furosemide 40mg BID
- Continue dapagliflozin (while inpatient)
- Continue metoprolol succinate 100mg
- Monitor I/Os, weight, Creatinine
- Consider repeat CT to evaluate chest, follow-up pulmonary recommendations
- Recommendations are not final until discussed with Dr. Alvarez, cardiology attg
Impression / Plan
-
85 yo F PMH HTN, HLD, permanent atrial fibrillation on apixaban, DM, HFpEF, CKD stage 3a, GERD, left breast lumpectomy p/w dyspnea and orthopnea and found to have large L pleural effusion c/f acute on chronic HFpEF exacerbation.
Spoke with patient using claims associate (Katiana, [id number]). She reports that she initially felt pain s/p chest tube insertion (left side), but that has improved with painkillers.
She denies dyspnea, palpitations. She also feels that her lower leg swelling is improved. some tenderness to palpation over chest tube site, but no erythema on my exam.
Physical exam this morning on my exam, not as diminished breath sounds on left side. Cr is 1.4 from 1.4 yesterday
Net I/O is +505 mL, recorded weight is now 77kg (from 82.6 yesterday). chest tube output is 315 mL in past 24 hours. CXR this morning showed markedly improved left side effusion.
Acute on chronic HFpEF exacerbation
- Last echo in 07/08/2025 showed EF 65-70%
- GDMT appears to be: SGLT2i (empagliflozin)
- She is on furosemide 40mg PO bid at home
- Weight recorded is now 77.7 kg
- Chest tube output of 315 mL; repeat CXR is markedly improved
- Cr 1.4
Plan:
- Continue IV furosemide 40mg BID
- Monitor I/Os, weight, Creatinine
- Continue dapagliflozin (while inpatient)
- Consider repeat CT to evaluate chest, follow-up pulmonary recommendations
- Freelance Programmer/App Developer on salt and fluid restrictive diet upon discharge
- During this hospital stay, we will consider adding on MRA depending on clinical course
- Recommendations are not final until discussed with Dr. Alvarez, cardiology attg
Recurrent left pleural effusion
- chest tube placed on 08/06/2025
- analysis of pleural fluid showed 3.6 total protein c/w exudative effusion, similar to prior.
- cytology for most recent pleural fluid is pending.
- Afebrile, no leukocytosis reassures against infection
Plan:
- Consider repeat CT to evaluate chest, follow-up pulmonary recommendations
Permanent atrial fibrillation
- HR appears 90s to low 100s
- Continue metoprolol succinate 100mg
- Continue apixaban dose adjusted to 2.5mg bid given renal function
- Monitor on telemetry
- If HR remains elevated, will advance rate control.
DM
- Would hold metformin while admitted inpatient
- Can consider semaglutide for additional cardioprotective effects vs. dulaglutide, but 1 diabetic change may be enough for this admission
HTN
- metoprolol succinate 100mg at home, continue inpatient
- On doxazosin 8mg per chart review as outpatient
- valsartan-HCTZ was d/c'ed at the last discharge
HLD
- continue atorvastatin
Physical Exam
Vital Signs/Labs
Vital Signs
Temp Pulse Resp BP Pulse Ox
98.4 F 101 16 131/72 97
08/07/25 07:05 08/07/25 07:05 08/07/25 07:05 08/07/25 07:05 08/07/25 08:59
08/06/25 08/07/25 08/08/25
06:59 06:59 06:59
Actual Weight 82.696 kg 77.734 kg
08/07/25 06:10
08/07/25 06:10
08/05/25
12:36
Xsf-Z-Sfzgqvlgqts Pept 2450
LAB Results
08/05/25
12:36
Troponin I 0.012
Physical Exam
Constitutional: Comfortable
Cardiovascular: Rhythm/rate is irregular and Other (edema in lower extremities)
Respiratory: Respiratory effort normal and Other (breath sounds on left side are improved from yesterday)
Neuro/Psych: Alert and Motor deficits absent
Data Reviewed
-
Date of Service: August 07, 2025
--- NOTE | 2025-08-07 10:20 | W.PN.HOSP.TC ---
Today's Communication/Plan
-
mgmt as per card and pulm
Assessment / Plan
Assessment / Plan
85yo macedonian speaking F with PMHx of HTN, HLD, permanent Fib on Eliquis, DM, HFpEF, CKD stage 3a, GERD, L breast CA s/p lumpectomy, chemo and RT, came with recurrent dyspnea, found large L pleural effusion similar to the one seen on prior admisison
month ago. Managed for CHF exacerbation, had chest tube placed on 08/06/25 draining around 3L over first 24h. Fluid exudate by Lights criteria, with negative cultures
A/P:
#Dyspnea 2/2 acute on chronic HFpEF exacerbation and large recurrent L pleural effusion
concerned for trapped lung, can be aftermath of RT or recurent CHF causing presistent fluid
Might need pleurodesis - mgmt as per Pulm. COnt chest tube
Lasix, daily weight and electrolytes as per cardiology
Echo on 07/08/25: EF 65-70%, mild-moderate TR, moderate pulmonary HTNwithout LV dysfunction but mild LVH
Tylenol, Ultram
Patient had rash to morphin before, not anaphylaxis
Path pending
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
outpatient card for monitoring q6-12m
#Afib, permanent
cont tele, HR control
Holding Eliquis 2/2 bloody output from tube as per Pulm
#2.3 cm right lower pole thyroid nodule
check TSH
outpatient US and further f/u for FNA - Outpatient Endo
#DM type 2 with nephropathy
#CKD stage 3a
CKD probably contributing to fluid retention
Accuchecks, Insulin SS, DM diet
CrCl 29 - stop metformin
Recurrent CHF - stop Actos
cont Jardiance, concider GLP-1 inh as outpatient, glimepiride
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
already on treatment
#HLD
#Neuropathy
#GERD
cont home meds
DVT ppx on SCDs when off Eliquis
Full code
I have spent at least 59min reviewing chart, test results, communicating with consultants, family and providing direct patient care
Anticipated Discharge: > 48 hours
Subjective/Interval History
-
Date of Service: August 07, 2025
Objective Data
-
Labs:
Laboratory Results
08/07/25
06:10
WBC 6.0
Hgb 12.9
Hct 39.7
Plt Count 233
Sodium 138
Potassium 3.8
Chloride 105
Carbon Dioxide 26
BUN 36 H
Creatinine 1.4 H
Glucose 145 H
Calcium 8.6
Vital Signs:
Vital Signs
Temp Pulse Resp BP Pulse Ox
98.4 F 101 16 131/72 97
08/07/25 07:05 08/07/25 07:05 08/07/25 07:05 08/07/25 07:05 08/07/25 08:59
I&O
08/06/25 08/07/25 08/08/25
06:59 06:59 06:59
Intake Total 480 / 480 820 / 820
Output Total 315 / 315
Balance 480 / 480 505 / 505
Review of Systems
-
History Source: Patient
All other systems: Reviewed and negative
Physical Exam
-
General: No Apparent Distress
HEENT: Normocephalic
Cardiac: Regular Rhythm
GI: Soft, Nontender and Nondistended
Neuro: Awake, Alert, Oriented and AO x 3
Psych: Calm
[2025-08-07] MEDS: TYLENOL 650 MG PO ×2 (10:43→21:25)
[2025-08-07 11:37] LABS: Glucose - Point of Care 212 mg/dl (70-99)
[2025-08-07 16:34] LABS: Glucose - Point of Care 270 mg/dl (70-99)
--- NOTE | 2025-08-07 17:11 | PTCARENOTE ---
Pt knocked over chest tube atrium, replaced with new atrium. Pt drained 375ml of serosanguineous fluid prior to knocking over. Educated pt on importance of atrium remaining upright, pt states understanding. Pt remains on water seal, no suction per
varnish blender. Pt blood thinner held this AM per MD, see MAR. PRN tylenol provided to pt for chest tube site pain of 8/10. Pt reports improvement. Pt has no further complaints at this time, resting comfortably in the chair. Safe environment
maintained.
[2025-08-07 21:15] LABS: Glucose - Point of Care 224 mg/dl (70-99)
[2025-08-07] MEDS: LIPITOR 10 MG PO (21:24)
[2025-08-08] VITALS (8 sets, daily range): BP systolic 104–144; BP diastolic 63–79; PULSE 70; O2SAT 96; BMI 29.8
[2025-08-08 06:58] LABS: Glucose - Point of Care 154 mg/dl (70-99)
--- NOTE | 2025-08-08 07:53 | W.PN.CD ---
Today's Communication / Plan
-
Cont diuresis for now
Discussed with pulm likely need for plan to control recurrent pleural effusions
Monitor Cr
Impression / Plan
-
85 yo F PMH HTN, HLD, permanent atrial fibrillation on apixaban, DM, HFpEF, CKD stage 3a, GERD, left breast lumpectomy p/w dyspnea and orthopnea and found to have large L pleural effusion c/f acute on chronic HFpEF exacerbation.
Spoke with patient using information technology instructor (Katiana, [id number]). She reports that she initially felt pain s/p chest tube insertion (left side), but that has improved with painkillers.
She denies dyspnea, palpitations. She also feels that her lower leg swelling is improved. some tenderness to palpation over chest tube site, but no erythema on my exam.
Physical exam this morning on my exam, not as diminished breath sounds on left side. Cr is 1.4 from 1.4 yesterday
Net I/O is +505 mL, recorded weight is now 77kg (from 82.6 yesterday). chest tube output is 315 mL in past 24 hours. CXR this morning showed markedly improved left side effusion.
Acute on chronic HFpEF exacerbation
- Last echo in 07/08/2025 showed EF 65-70%
- GDMT appears to be: SGLT2i (empagliflozin)
- She is on furosemide 40mg PO bid at home
- Weight recorded is now 77.7 kg
- Chest tube output of 315 mL; repeat CXR is markedly improved
- Cr 1.4
Plan:
- Continue IV furosemide 40mg BID
- Monitor I/Os, weight, Creatinine
- Continue dapagliflozin (while inpatient)
- main issue is recurrent effusions --> likely diuretics not enoguh to control recurrence discussed with pulm
Recurrent left pleural effusion
- chest tube placed on 08/06/2025
- per pulm
Permanent atrial fibrillation
- HR appears 90s to low 100s
- Continue metoprolol succinate 100mg
- Continue apixaban dose adjusted to 2.5mg bid given renal function
- Monitor on telemetry
DM
- Would hold metformin while admitted inpatient
- Can consider semaglutide for additional cardioprotective effects vs. dulaglutide, but 1 diabetic change may be enough for this admission
HTN
- metoprolol succinate 100mg at home, continue inpatient
- On doxazosin 8mg per chart review as outpatient
- valsartan-HCTZ was d/c'ed at the last discharge
HLD
- continue atorvastatin
Subjective: Breathing much improved after thoracentesis
Physical Exam
Vital Signs/Labs
Vital Signs
Temp Pulse Resp BP Pulse Ox
97.9 F 95 17 104/68 98
08/08/25 07:45 08/08/25 07:45 08/08/25 07:45 08/08/25 07:45 08/08/25 07:45
08/07/25 08/08/25 08/09/25
06:59 06:59 06:59
Actual Weight 171 lb 6 oz 173 lb 4 oz
08/05/25
12:36
Cys-A-Gmgvkkqntxk Pept 2450
LAB Results
08/05/25
12:36
Troponin I 0.012
Physical Exam
Constitutional: No acute distress and Comfortable
EENT: Anicteric
Cardiovascular: Rhythm/rate is irregular
Respiratory: Respiratory effort normal and Lungs clear to auscul.
GI: Soft
Neuro/Psych: Alert and Oriented
Data Reviewed
-
Date of Service: August 08, 2025
Medical Decision Making: Reviewed Test Results
EKG: Tracing Personally Visualized and interpreted (af)
Echo: Report Reviewed by me
Labs: Labs Reviewed by me
[2025-08-08 08:02] LABS: Hematocrit 37.1 % (37.0-47.0); Hemoglobin 11.9 g/dL (12.0-16.0); Mean Corp Hgb Conc. 32.1 g/dL (33.0-37.0); Mean Corpuscular Volume 89.6 fL (81.0-99.0); Nucleated Red Blood Cells % 0 %; Platelet Count 219 10^3/uL (130-400); Red Cell Dist. Width 16.5 % (11.5-14.5)
[2025-08-08 08:35] LABS: Blood Urea Nitrogen 37 mg/dl (7-17); Calcium 8.5 mg/dl (8.4-10.2); Carbon Dioxide 27 mmol/L (22-30); Chloride 101 mmol/L (98-107); Estimated Creatinine Clearance 27 ml/min; Glucose 157 mg/dl (70-99); Magnesium 2.0 mg/dl (1.6-2.3); Potassium 3.4 mmol/L (3.5-5.1); Sodium 133 mmol/L (135-145); eGFR 33.73
[2025-08-08] MEDS: FARXIGA 10 MG PO (08:43)
[2025-08-08] MEDS: LASIX 40 MG IV ×2 (08:45→15:47)
[2025-08-08] MEDS: NEURONTIN 100 MG PO ×3 (08:46→21:10)
[2025-08-08] MEDS: PROTONIX 40 MG PO (08:46)
[2025-08-08] MEDS: MAGNESIUM OXIDE 400 MG PO (08:49)
[2025-08-08] MEDS: TOPROL XL 100 MG PO (08:50)
--- NOTE | 2025-08-08 09:11 | CONSULT.CT ---
Consultation
-
Date/Time Consultation Requested: 08/08/25
Date/Time Consultation Performed: 08/08/25
Requesting Provider: Marie
Performing Provider: Aye Aiken PA-C for Dr. Korin Rios
Reason for Consultation: recurrent L effusion, trapped lung
Patient History
Physicians
Family Physician: Mike Stafford
Outpatient Car Dumper: Eber Henson
History of Present Illness
Patient is an 85y/o ukranian speaking female who presented to on 08/05 with complaints of worsening shortness of breath & orthopnea. Pt had recently been admitted on 07/09/25 for Left pleural effusion requiring sequential thoracenteces for a total
of 2750ml of exudative fluid that is negative for malignant cells. She was discharged at that time and now presents with a recurrence of the Left effusion. Chest tube was placed by IR on 08/05 which drained >3L of serous fluid in the first 24hrs of
placement with trapped lung physiology. Repeat CT of the chest was done yesterday which demonstrates a small amout of air around the left lung.
Past Medical History
Past Medical History: Other
hypertension
hypercholesterolemia
atrial fibrillation
HFpEF
chronic kidney disease IIIa
GERD
Past Surgical History
Past Surgical History: Other
cholecystectomy
appendectomy
MOHS
left breast x3
Family History
Mother: N/A
Father: N/A
Social History
Alcohol: None
Drug: None
Tobacco: Non-Smoker
Personal: Single
Living: Alone (her children help her, but she is relatively independent)
Allergies
Allergy/AdvReac Type Severity Reaction Status Date / Time
iodine Allergy Unknown Verified 08/05/25 12:25
morphine Allergy Unknown Verified 08/05/25 12:25
Home Medications
�Medication �Instructions �Recorded �Confirmed �Type
pioglitazone 30 mg tablet 30 mg PO DAILY Diabetes 07/05/25 08/05/25 History
lidocaine 5 % topical patch 2 patch topical DAILYPRN PRN b/l 07/06/25 08/05/25 History
knee
apixaban 5 mg tablet (Eliquis) 5 mg PO BID Blood clot 07/11/25 08/05/25 Rx
prevention/tx #0 tabs
atorvastatin 10 mg tablet 10 mg PO HS High cholesterol #0 07/11/25 08/05/25 Rx
tabs
cholecalciferol (vitamin D3) 50 50 mcg PO DAILY Supplement #0 caps 07/11/25 08/05/25 Rx
mcg (2,000 unit) capsule (Vitamin
D3)
empagliflozin 10 mg tablet 10 mg PO DAILY Diabetes #0 tabs 07/11/25 08/05/25 Rx
(Jardiance)
magnesium 200 mg tablet 400 mg (2 x 200 mg) PO DAILY 07/11/25 08/05/25 Rx
Supplement #0 tabs
metformin 850 mg tablet 850 mg PO BID Diabetes #0 tabs 07/11/25 08/05/25 Rx
metoprolol succinate 50 mg 100 mg (2 x 50 mg) PO DAILY Blood 07/11/25 08/05/25 Rx
tablet,extended release 24 hr pressure #60 tabs
dulaglutide 4.5 mg/0.5 mL 4.5 mg SC FR Diabetes 08/05/25 08/05/25 History
subcutaneous pen injector
(Trulicity)
furosemide 40 mg tablet 40 mg PO BID Heart 08/05/25 08/05/25 History
disease/condition
gabapentin 100 mg capsule 100 mg PO TID mild Pain 08/05/25 08/05/25 History
omeprazole 40 mg capsule,delayed 40 mg PO DAILY gerd 08/05/25 08/05/25 History
release
Review of Systems
-
History Source: Patient
General: Reports No Symptoms
HEENT: Reports No Symptoms
Respiratory: Reports SOB and Other (orthopnea)
Cardiac: Reports Edema; Denies Chest Pain or Palpitations
Abdomen/GI: Reports No Symptoms
: Reports No Symptoms
Musculoskeletal: Reports No Symptoms
Skin: Reports No Symptoms
Neurological: Reports No Symptoms
Vascular: Reports No Symptoms
Physical Exam
Vital Signs
Temp 97.9 F 08/08/25 07:45
Temp route: Oral 08/08/25 07:45
Pulse 95 08/08/25 07:45
Rhythm: Atrial fibrillation 08/07/25 20:30
Resp Rate 17 08/08/25 07:45
Blood pressure 104/68 08/08/25 07:45
Blood pressure extremity used: Right upper arm 08/08/25 07:45
Position: Sitting 08/08/25 07:45
MAP (cuff-Neno Monitor) 102 08/05/25 17:00
SaO2 98 08/08/25 07:45
Oxygen Mode of Delivery Room air 08/08/25 07:45
Pulse Ox at Rest 97 08/07/25 12:23
Can the patient verbally communicate their pain? Yes 08/07/25 22:25
Pain scale rating: Asleep 08/07/25 22:25
Actual Weight 78.585 kg 08/08/25 06:00
Body Mass Index (BMI) 29.8 08/08/25 06:00
Sitting- Blood Pressure 110/66 08/07/25 12:23
Sitting- Pulse 93 08/07/25 12:23
Labs
08/08/25 07:30
08/08/25 07:30
Hemoglobin A1c 7.1 % (4.0-5.9) H 08/06/25 06:52
Troponin I 0.012 ng/ml 08/05/25 12:36
Pbr-I-Klkbkaveusy Pept 2450 pg/ml 08/05/25 12:36
Exam
General: Well Developed, Well Nourished and No Apparent Distress
Respiratory: Crackles (left amezcua +crackles throughout; R lung clear)
Skin: Warm and Dry
Neuro: Nonfocal/Grossly Intact
Extremities: Upper Level Edema and Lower Level Edema
Psych: Calm
Assessment / Plan
-
Recurrent left pleural effusion with trapped lung physiology
Dr. Rios and I discussed her current pathology with the patient via languages and literature instructor. We discussed potential options of more permanent pleur-x catheter for intermittent drainage of her effusions vs surgical decortication and pleurodesis to
attempt to expand her lung all the way. She is very sharp in regards to her own medical history, but would prefer to continue the discussion with her son/family present.
RN relayed to me after our encounter that patient's son would prefer we have a discussion with patient's granddaughter, Diane, who is an MANAGER PERSONNEL SELECTION. We will try to get in touch with her this afternoon to discuss.
Data Reviewed
-
Radiology: Report Reviewed by me
CT Scan: Report Reviewed by me
--- NOTE | 2025-08-08 09:55 | W.PN.PUL3 ---
Today's Communication / Plan
-
- Continue chest tube to water seal
- CT surgery consult
- Add subcu heparin for DVT prophylaxis while Eliquis is on hold pending definitive decision regarding surgery versus ASEPT placement
Assessment
-
Patient is a 85-year-old female who presents to the hospital with worsening shortness of breath and orthopnea. Patient has known history of hypertension hyperlipidemia, A-fib and heart failure with preserved ejection fraction who recently was
hospitalized for similar symptoms. Patient had thoracentesis performed for left-sided pleural effusion diagnosed in 06/2025. Patient had thoracentesis performed x 2 with 1200 to 1500 mL fluid removed suggestive of exudative by protein criteria and
transudate by LDH criteria. Post-thoracentesis x-ray did not show full reexpansion of the lung raising concern for possibly trapped lung versus loculations. Patient reports that after discharge she did well for a while and then again progressively
developed worsening shortness of breath in addition to orthopnea. Bilateral lower extremity edema also worsened. The symptoms brought her back to the emergency room. Repeat imaging showed a large left-sided pleural effusion. Pulmonary
consultation was requested for further input.
#. Left sided pleural effusion, recurrent with trapped lung physiology
-Differential diagnosis include malignancy, postradiation changes with h/o left sided breast cancer (s/p lumpectomy and radiation), parapneumonic effusion etc. Volume overload likely exacerbated the effusion.
- Pneumothorax ex-vacuo with poor re-expansion of LLL again suggestive of trapped lung in the setting of h/o radiation therapy
- Cytology negative on 07/06 and 07/09. (mesothelial cells, macrophages present, light lymphocyte background inflammation). Cytology from 08/06 pending.
- Pleural fluid cultures negative x 2.
- Exudative by protein criteria however LDH not significantly elevated. Predominantly mononuclear cells suggestive of chronicity. Exudative versus pseudo exudative in the presence of diuresis. Fluid triglyceride less than 30, rules out
chylothorax. Presence of mesothelial cells makes tuberculosis unlikely.
- s/p chest tube placement 08/06, >3.1 Ltr fluid removed so far. Keep on water seal.
- 08/08, more than 400 mL serous fluid output over last 24 hours
- CT surgery consult for consideration for Decortication and mechanica pleurodesis. If not felt to be a candidate for surgery, will consider indwelling pleural catheter.
#2. LLL ground glass opacities. (?re-expansion edema)
- No obvious mass noted
- Re-expansion pulmonary edema vs chronic changes due to prior h/o radiation.
- Continue diuresis, patient is afebrile, hold off antibiotics for now. O2 as needed. D/c Chest tube suction
- If GGO changes persist in coming weeks, will consider Bronchoscopy and BAL.
#3. Pneumothorax ex vacuo.
- Pneumothorax noted post chest tube placement, Ex-vacuo due to trapped Lung, particularly LLL
- No air leak. Stay off suction, continue water seal, stable Chest X ray
- Await CT surgery service recommendations
#4. Acute on chronic HFpEF
- Continue IV Lasix, cardiology service on case
#5. Pulmonary hypertension, mild
- PASP 45 mm on ECHO
- Suspect primarily group II with underlying congestive heart failure
Other medical diagnoses:
- Chronic atrial fibrillation
- Hypertension, hyperlipidemia
- Chronic kidney disease
- Diabetes
- H/o Left sided breast cancer, s/p surgery x 3 and radiation therapy, 32 sessions per patient as well as gamma radiation therapy. Details not available.
Total time spent on this consultation/encounter __38__ minutes which includes review of history, physical exam, medications, laboratory data, personal review of imaging, extensive review of outpatient records, discussion with care team and
respiratory therapy.
Updated patient's son at bedside. Discussed with CT surgery service
Data:
ECHO 06/2025: 1. Normal LV size. Mild LVH. Normal LV systolic function. Estimated LVEF 65-70%.
2. Mild/moderate tricuspid regurgitation. Estimated pulmonary artery pressure of 45 mmHg assuming a right atrial pressure of 8 mmHg. Mild/moderately elevated PASP.
3. There is evidence of pleural effusion.
4. No prior study available for comparison.
Lexiscan 03/2025: Negative ECG for ischemia given the pharmacological study.
Normal Lexiscan nuclear stress test.
Systolic function is normal. The ejection fraction is 62%.
Stress Risk is low risk study, but the patient may be at moderate risk (risk of 1 - 3% OR or /year) due to pharmacologic agent used.
Subjective Data
-
Date of Service:
Date of Service: August 08, 2025
Subjective:
Patient comfortably sitting in bed in no acute distress.
Review of Systems
Genitourinary: Other (All 14 systems reviewed and negative except as stated above in the history of present illness.)
Objective Data
Data Reviewed
Vital Signs / I&O / Oxygen:
Vital Signs
Temp Pulse Resp BP Pulse Ox
97.9 F 95 17 104/68 98
08/08/25 07:45 08/08/25 07:45 08/08/25 07:45 08/08/25 07:45 08/08/25 07:45
Intake and Output
08/07/25 08/08/25 08/09/25
06:59 06:59 06:59
Intake Total 820 / 820 1140 / 1140 180 / 180
Output Total 3009 / 3009 735 / 735
Balance -2189 / -2189 405 / 405 180 / 180
SaO2 98
Physical Exam
General: Comfortable
HEENT: Normocephalic
Cardiovascular: S1-S2
Respiratory: Clear
GI: Soft and Non Distended
Neurology: Awake and Alert
Skin: Warm
Labs/Micro/Reports
Lab Data
08/08/25 07:30
08/08/25 07:30
Microbiology
08/06/25 14:59 Pleural Fluid Body Fluid Culture - Preliminary
No Growth After 48 Hours
08/06/25 14:59 Pleural Fluid Gram Stain - Preliminary
08/06/25 14:59 Pleural Fluid Fungal Culture - Preliminary
Culture in progress.
Positive cultures are reported as soon as detected.
Final report to follow in four to five weeks.
08/05/25 12:36 Nasal Swab Influenza Types A & B (CLAUDIO) - Final
Negative for Influenza A & B, NAAT
Negative results must be combined with clinical observations
and patient history.
Nucleic Acid Amplification test (NAAT)performed on the
[employer] NOW platform.
--- NOTE | 2025-08-08 10:56 | W.PN.HOSP.TC ---
Today's Communication/Plan
-
replete potassium
cont diuresis as per Card
Assessment / Plan
Assessment / Plan
85yo estonian speaking F with PMHx of HTN, HLD, permanent Fib on Eliquis, DM, HFpEF, CKD stage 3a, GERD, L breast CA s/p lumpectomy, chemo and RT, came with recurrent dyspnea, found large L pleural effusion similar to the one seen on prior admisison
month ago. Managed for CHF exacerbation, had chest tube placed on 08/06/25 draining around 3L over first 24h. Fluid exudate by Lights criteria, with negative cultures
A/P:
#Dyspnea 2/2 acute on chronic HFpEF exacerbation and large recurrent L pleural effusion
concerned for trapped lung, can be aftermath of RT or recurrent CHF causing persistent fluid
Might need decortication and pleurodesis - mgmt as per Pulm. COnt chest tube
Lasix, daily weight and electrolytes as per cardiology
Echo on 07/08/25: EF 65-70%, mild-moderate TR, moderate pulmonary HTN without LV dysfunction but mild LVH
Tylenol, Ultram
Patient had rash to morphine before, not anaphylaxis
Path pending
#hypokalemia
replete
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
outpatient card for monitoring q6-12m
#Afib, permanent
cont tele, HR control
Holding Eliquis 2/2 bloody output from tube as per Pulm
#2.3 cm right lower pole thyroid nodule
check TSH
outpatient US and further f/u for FNA - Outpatient Endo
#DM type 2 with nephropathy
#CKD stage 3a
CKD probably contributing to fluid retention
Accuchecks, Insulin SS, DM diet
CrCl 29 - stop metformin
Recurrent CHF - stop Actos
cont Jardiance, consider GLP-1 inh as outpatient, glimepiride
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
already on treatment
#HLD
#Neuropathy
#GERD
cont home meds
DVT ppx on SCDs when off Eliquis
Full code
I have spent at least 51min reviewing chart, test results, communicating with consultants, family and providing direct patient care
Anticipated Discharge: > 48 hours
Subjective/Interval History
-
Date of Service: August 08, 2025
Objective Data
-
Labs:
Laboratory Results
08/08/25
07:30
WBC 6.7
Hgb 11.9 L
Hct 37.1
Plt Count 219
Sodium 133 L
Potassium 3.4 L
Chloride 101
Carbon Dioxide 27
BUN 37 H
Creatinine 1.5 H
Glucose 157 H
Calcium 8.5
Vital Signs:
Vital Signs
Temp Pulse Resp BP Pulse Ox
97.9 F 95 17 104/68 98
08/08/25 07:45 08/08/25 07:45 08/08/25 07:45 08/08/25 07:45 08/08/25 07:45
I&O
08/07/25 08/08/25 08/09/25
06:59 06:59 06:59
Intake Total 820 / 820 1140 / 1140 180 / 180
Output Total 3009 / 3009 735 / 735
Balance -2189 / -2189 405 / 405 180 / 180
Review of Systems
-
History Source: Patient
All other systems: Reviewed and negative
Physical Exam
-
General: No Apparent Distress
HEENT: Normocephalic
Respiratory: Clear to Auscultation and Decreased Breath Sounds (L)
Cardiac: Irregular Rhythm
GI: Soft, Nontender and Nondistended
Musculoskeletal: No Clubbing, No Cyanosis, Edema, Right Lower Extrem and Edema, Left Lower Extrem
Neuro: Awake, Alert, Oriented and AO x 3
Psych: Calm
[2025-08-08] MEDS: KCL 40 MEQ PO (11:37)
[2025-08-08 11:41] LABS: Glucose - Point of Care 269 mg/dl (70-99)
[2025-08-08] MEDS: HEPARIN 5000 UNITS SC ×2 (15:48→23:15)
[2025-08-08 16:51] LABS: Glucose - Point of Care 241 mg/dl (70-99)
[2025-08-08] MEDS: NOVOLOG FLEXPEN-LOW RESISTANCE 2 UNITS SC (17:20)
[2025-08-08] MEDS: TYLENOL 650 MG PO (21:10)
[2025-08-08] MEDS: LIPITOR 10 MG PO (21:10)
[2025-08-08 21:22] LABS: Glucose - Point of Care 275 mg/dl (70-99)
[2025-08-09] VITALS (8 sets, daily range): BP systolic 102–139; BP diastolic 49–75; BMI 29.5
[2025-08-09 06:48] LABS: Hematocrit 35.5 % (37.0-47.0); Hemoglobin 12.1 g/dL (12.0-16.0); Mean Corp Hgb Conc. 34.1 g/dL (33.0-37.0); Mean Corpuscular Volume 88.5 fL (81.0-99.0); Platelet Count 220 10^3/uL (130-400); Red Cell Dist. Width 16.3 % (11.5-14.5)
[2025-08-09 06:51] LABS: Glucose - Point of Care 202 mg/dl (70-99)
[2025-08-09 07:29] LABS: Blood Urea Nitrogen 38 mg/dl (7-17); Calcium 8.6 mg/dl (8.4-10.2); Carbon Dioxide 28 mmol/L (22-30); Chloride 101 mmol/L (98-107); Estimated Creatinine Clearance 29 ml/min; Glucose 198 mg/dl (70-99); Magnesium 2.1 mg/dl (1.6-2.3); Potassium 3.5 mmol/L (3.5-5.1); Sodium 134 mmol/L (135-145); eGFR 36.64
--- NOTE | 2025-08-09 08:06 | W.PN.CD ---
Today's Communication / Plan
-
IV diuresis today
Lasix 80 mg daily starting tomorrow
We will sign off she should f/u with home sap functional analyst.
Impression / Plan
-
85 yo F PMH HTN, HLD, permanent atrial fibrillation on apixaban, DM, HFpEF, CKD stage 3a, GERD, left breast lumpectomy p/w dyspnea and orthopnea and found to have large L pleural effusion c/f acute on chronic HFpEF exacerbation.
Spoke with patient using train dispatcher (Katiana, [id number]). She reports that she initially felt pain s/p chest tube insertion (left side), but that has improved with painkillers.
She denies dyspnea, palpitations. She also feels that her lower leg swelling is improved. some tenderness to palpation over chest tube site, but no erythema on my exam.
Physical exam this morning on my exam, not as diminished breath sounds on left side. Cr is 1.4 from 1.4 yesterday
Net I/O is +505 mL, recorded weight is now 77kg (from 82.6 yesterday). chest tube output is 315 mL in past 24 hours. CXR this morning showed markedly improved left side effusion.
Acute on chronic HFpEF exacerbation
- Last echo in 07/08/2025 showed EF 65-70%
- GDMT appears to be: SGLT2i (empagliflozin)
- She is on furosemide 40mg PO bid at home
- Weight recorded is now 77.7 kg
- Chest tube output of 315 mL; repeat CXR is markedly improved
- Cr 1.4
Plan:
- Continue IV furosemide 40mg BID last day go to 80 mg daily starting tomorrow
- Monitor I/Os, weight, Creatinine
- Continue dapagliflozin (while inpatient)
- main issue is recurrent effusions --> likely diuretics not enoguh to control recurrence discussed with pulm
Recurrent left pleural effusion
- chest tube placed on 08/06/2025
- per pulm/cts
Permanent atrial fibrillation
- HR appears 90s to low 100s
- Continue metoprolol succinate 100mg
- Continue apixaban dose adjusted to 2.5mg bid given renal function
- Monitor on telemetry
DM
- Would hold metformin while admitted inpatient
- Can consider semaglutide for additional cardioprotective effects vs. dulaglutide, but 1 diabetic change may be enough for this admission
HTN
- metoprolol succinate 100mg at home, continue inpatient
- On doxazosin 8mg per chart review as outpatient
- valsartan-HCTZ was d/c'ed at the last discharge
HLD
- continue atorvastatin
Subjective:Breathing stable legs improved
Physical Exam
Vital Signs/Labs
Vital Signs
Temp Pulse Resp BP Pulse Ox
97.4 F 98 12 139/75 98
08/09/25 07:00 08/09/25 07:00 08/09/25 07:00 08/09/25 07:00 08/09/25 07:00
08/08/25 08/09/25 08/10/25
06:59 06:59 06:59
Actual Weight 173 lb 4 oz 171 lb 9 oz
08/09/25 06:12
08/09/25 06:12
Magnesium 2.1 mg/dl (1.6-2.3) 08/09/25 06:12
08/05/25
12:36
Yjp-[id number]-Fgjrcnpxiri Pept 2450
Physical Exam
EENT: Anicteric
Cardiovascular: Rhythm/rate is irregular and Pedal edema present
Respiratory: Respiratory effort normal and Lungs clear to auscul.
GI: Soft
Neuro/Psych: Alert and Oriented
Data Reviewed
-
Date of Service: August 09, 2025
EKG: Tracing Personally Visualized and interpreted (af)
Echo: Report Reviewed by me
Labs: Labs Reviewed by me
[2025-08-09] MEDS: NOVOLOG FLEXPEN-LOW RESISTANCE 2 UNITS SC ×2 (08:12→11:42)
[2025-08-09] MEDS: FARXIGA 10 MG PO (08:12)
[2025-08-09] MEDS: PROTONIX 40 MG PO (08:12)
[2025-08-09] MEDS: HEPARIN 5000 UNITS SC ×2 (08:13→15:47)
[2025-08-09] MEDS: TOPROL XL 100 MG PO (08:13)
[2025-08-09] MEDS: NEURONTIN 100 MG PO ×3 (08:13→21:33)
[2025-08-09] MEDS: MAGNESIUM OXIDE 400 MG PO (08:13)
[2025-08-09] MEDS: LASIX 40 MG IV ×2 (08:16→15:56)
--- NOTE | 2025-08-09 10:31 | W.PN.PUL3 ---
Today's Communication / Plan
-
- d/c chest tube
- F/u Chest x ray in AM
Assessment
-
Patient is a 85-year-old female who presents to the hospital with worsening shortness of breath and orthopnea. Patient has known history of hypertension hyperlipidemia, A-fib and heart failure with preserved ejection fraction who recently was
hospitalized for similar symptoms. Patient had thoracentesis performed for left-sided pleural effusion diagnosed in 06/2025. Patient had thoracentesis performed x 2 with 1200 to 1500 mL fluid removed suggestive of exudative by protein criteria and
transudate by LDH criteria. Post-thoracentesis x-ray did not show full reexpansion of the lung raising concern for possibly trapped lung versus loculations. Patient reports that after discharge she did well for a while and then again progressively
developed worsening shortness of breath in addition to orthopnea. Bilateral lower extremity edema also worsened. The symptoms brought her back to the emergency room. Repeat imaging showed a large left-sided pleural effusion. Pulmonary
consultation was requested for further input.
#. Left sided pleural effusion, recurrent with trapped lung physiology
-Differential diagnosis include malignancy, postradiation changes with h/o left sided breast cancer (s/p lumpectomy and radiation), parapneumonic effusion etc. Volume overload likely exacerbated the effusion.
- Pneumothorax ex-vacuo with poor re-expansion of LLL again suggestive of trapped lung in the setting of h/o radiation therapy
- Cytology negative on 07/06 and 07/09 and (mesothelial cells, macrophages present, light lymphocyte background inflammation)
- Pleural fluid cultures negative x 3.
- Exudative by protein criteria however LDH not significantly elevated. Predominantly mononuclear cells suggestive of chronicity. Exudative versus pseudo exudative in the presence of diuresis. Fluid triglyceride less than 30, rules out
chylothorax. Presence of mesothelial cells makes tuberculosis unlikely.
- s/p chest tube placement 08/06, >3.1 Ltr fluid removed so far. Has been on water seal
- CT surgery consult for consideration for Decortication and mechanica pleurodesis. If not felt to be a candidate for surgery, will consider indwelling pleural catheter.
- 08/09. No chest tube out put since 5 pm 08/08. No tidling noted. ?malpositioned chest tube. No air leak. Chest X ray without enlarging pneumothorax. IR consult to discontinue chest tube
#2. LLL ground glass opacities. (?re-expansion edema)
- No obvious mass noted
- Re-expansion pulmonary edema related to large volume fluid removal, follow-up chest x-ray 08/09 with improving interstitial opacity.
- Continue diuresis, patient is afebrile, hold off antibiotics for now. Has been on room air. D/c Chest tube
#3. Pneumothorax ex vacuo.
- Pneumothorax noted post chest tube placement, Ex-vacuo due to trapped Lung, particularly LLL
- No air leak. Had been on water seal
- 08/09, d/c chest tube
#4. Acute on chronic HFpEF
- Continue IV Lasix, cardiology service on case
#5. Pulmonary hypertension, mild
- PASP 45 mm on ECHO
- Suspect primarily group II with underlying congestive heart failure
Other medical diagnoses:
- Chronic atrial fibrillation
- Hypertension, hyperlipidemia
- Chronic kidney disease
- Diabetes
- H/o Left sided breast cancer, s/p surgery x 3 and radiation therapy, 32 sessions per patient as well as gamma radiation therapy. Details not available.
Total time spent on this consultation/encounter __36__ minutes which includes review of history, physical exam, medications, laboratory data, personal review of imaging, extensive review of outpatient records, discussion with care team and
respiratory therapy.
Updated patient's son at bedside. Discussed with CT surgery service
Data:
ECHO 06/2025: 1. Normal LV size. Mild LVH. Normal LV systolic function. Estimated LVEF 65-70%.
2. Mild/moderate tricuspid regurgitation. Estimated pulmonary artery pressure of 45 mmHg assuming a right atrial pressure of 8 mmHg. Mild/moderately elevated PASP.
3. There is evidence of pleural effusion.
4. No prior study available for comparison.
Lexiscan 03/2025: Negative ECG for ischemia given the pharmacological study.
Normal Lexiscan nuclear stress test.
Systolic function is normal. The ejection fraction is 62%.
Stress Risk is low risk study, but the patient may be at moderate risk (risk of 1 - 3% CA or /year) due to pharmacologic agent used.
Subjective Data
-
Date of Service:
Date of Service: August 09, 2025
Subjective:
Comfortably sitting in bed in no acute distress.
Review of Systems
Genitourinary: Other (All 14 systems reviewed and negative except as stated above in the history of present illness.)
Objective Data
Data Reviewed
Vital Signs / I&O / Oxygen:
Vital Signs
Temp Pulse Resp BP Pulse Ox
97.4 F 98 12 139/75 98
08/09/25 07:00 08/09/25 08:16 08/09/25 07:00 08/09/25 08:16 08/09/25 07:00
Intake and Output
08/08/25 08/09/25 08/10/25
06:59 06:59 06:59
Intake Total 1140 / 1140 900 / 900
Output Total 735 / 735 200 / 200
Balance 405 / 405 700 / 700
SaO2 98
Physical Exam
General: Comfortable
HEENT: Normocephalic
Cardiovascular: S1-S2
Respiratory: Clear
GI: Soft and Non Distended
Neurology: Awake and Alert
Skin: Warm
Labs/Micro/Reports
Lab Data
08/09/25 06:12
08/09/25 06:12
Microbiology
08/06/25 14:59 Pleural Fluid Acid Fast Bacilli Smear - Preliminary
08/06/25 14:59 Pleural Fluid Acid Fast Bacilli Culture - Preliminary
08/06/25 14:59 Pleural Fluid Body Fluid Culture - Preliminary
No Growth After 48 Hours
08/06/25 14:59 Pleural Fluid Gram Stain - Preliminary
08/06/25 14:59 Pleural Fluid Fungal Culture - Preliminary
Culture in progress.
Positive cultures are reported as soon as detected.
Final report to follow in four to five weeks.
--- NOTE | 2025-08-09 10:46 | W.PN.HOSP.TC ---
Today's Communication/Plan
-
chest tube out today since no drainage
await for CTS mgmt
Assessment / Plan
Assessment / Plan
85yo Polish speaking F with PMHx of HTN, HLD, permanent Fib on Eliquis, DM, HFpEF, CKD stage 3a, GERD, L breast CA s/p lumpectomy, chemo and RT, came with recurrent dyspnea, found large L pleural effusion similar to the one seen on prior admission
month ago. Managed for CHF exacerbation, had chest tube placed on 08/06/25 draining around 3L over first 24h. Fluid exudate by Lights criteria, with negative cultures
A/P:
#Dyspnea 2/2 acute on chronic HFpEF exacerbation and large recurrent L pleural effusion
#Reexpansion lung edema
#Pneumothorax s/p chest tube, most likely lung ex vacuo
CHest tube no drain on 08/09/25 - remove as per pulm
concerned for trapped lung, can be aftermath of RT or recurrent CHF causing persistent fluid
Might need decortication and pleurodesis - mgmt as per Pulm. COnt chest tube
Lasix, daily weight and electrolytes as per cardiology, switch to oral lasix on 10/10/24
Echo on 07/08/25: EF 65-70%, mild-moderate TR, moderate pulmonary HTN without LV dysfunction but mild LVH
Tylenol, Ultram
Patient had rash to morphine before, not anaphylaxis
Path with reactive atypical cells same as on previous thoracentesis
CTS planning for pleurodesis and decortication on 10/12/24, if unsuccessful - pleyurx
#hypokalemia
replete
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
outpatient card for monitoring q6-12m
#Afib, permanent
cont tele, HR control
Holding Eliquis 2/2 bloody output from tube as per Pulm
#2.3 cm right lower pole thyroid nodule
check TSH
outpatient US and further f/u for FNA - Outpatient Endo
#DM type 2 with nephropathy
#CKD stage 3a
CKD probably contributing to fluid retention
Accuchecks, Insulin SS, DM diet
CrCl 29 - stop metformin
Recurrent CHF - stop Actos
cont Jardiance, consider GLP-1 inh as outpatient, glimepiride
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
already on treatment
#HLD
#Neuropathy
#GERD
cont home meds
DVT ppx on SCDs when off Eliquis
Full code
I have spent at least 51min reviewing chart, test results, communicating with consultants, family and providing direct patient care
Anticipated Discharge: > 48 hours
Subjective/Interval History
-
Date of Service: August 09, 2025
Objective Data
-
Labs:
Laboratory Results
08/09/25
06:12
WBC 6.8
Hgb 12.1
Hct 35.5 L
Plt Count 220
Sodium 134 L
Potassium 3.5
Chloride 101
Carbon Dioxide 28
BUN 38 H
Creatinine 1.4 H
Glucose 198 H
Calcium 8.6
Vital Signs:
Vital Signs
Temp Pulse Resp BP Pulse Ox
98 F 93 17 102/56 97
08/09/25 10:38 08/09/25 10:38 08/09/25 10:38 08/09/25 10:38 08/09/25 10:38
I&O
08/08/25 08/09/25 08/10/25
06:59 06:59 06:59
Intake Total 1140 / 1140 900 / 900
Output Total 735 / 735 200 / 200
Balance 405 / 405 700 / 700
Review of Systems
-
History Source: Patient
All other systems: Reviewed and negative
Physical Exam
-
General: Comfortable
HEENT: Normocephalic
Cardiac: Regular Rhythm
GI: Soft, Nontender and Nondistended
Musculoskeletal: No Clubbing, No Cyanosis and No Edema
Neuro: Awake, Alert, Oriented and AO x 3
Psych: Calm
--- NOTE | 2025-08-09 10:55 | PN.IRAD.UPD ---
Update Note - IRAD
- -
patient came to department for left sided chest tube removal. cleaned, prepped and draped patient, removed tube with no complaints or issues. dressed with an optifoam
[2025-08-09 11:31] LABS: Glucose - Point of Care 216 mg/dl (70-99)
--- NOTE | 2025-08-09 12:13 | W.PN.UPDATE ---
Addendum entered and electronically signed by VIVEK Walker 08/09/25 14:00:
Tuesday August 12, 2025
Original Note:
Update Note
Progress Note Update
Patient was seen with Dr. Rios and consent was obtained for a VATS/pleurodesis/ possible pleur-x placement. Currently, patient is scheduled for Thursday August 12, 2027.
--- NOTE | 2025-08-09 14:28 | PTCARENOTE ---
This morning, pt's son spoke to me regarding pt's pending CT surgery on Tuesday. Pt and family are agreeable to decortication and pleurodesis surgery, but pt is not agreeable to pleurx catheter placement if surgery is possible/successful. Sent TT to
CT surgery WEB APPLICATIONS PROGRAMMER, explaining pt's wishes. Also asked CT surgery to call family for consent, as the pt is Dutch speaking.
[2025-08-09] MEDS: TYLENOL 650 MG PO (15:57)
[2025-08-09 16:20] LABS: Glucose - Point of Care 236 mg/dl (70-99)
--- NOTE | 2025-08-09 17:13 | CM ---
Chest tube removed
Pt is Tajik speaking.
Current with [facility]
Will need PT for dc planning.
PLAN Home with [facility] VN
[2025-08-09] MEDS: NOVOLOG FLEXPEN-MODERATE RESISTANCE 3 UNITS SC (17:24)
[2025-08-09 21:06] LABS: Glucose - Point of Care 243 mg/dl (70-99)
[2025-08-09] MEDS: LIPITOR 10 MG PO (21:33)
[2025-08-10] VITALS (8 sets, daily range): BP systolic 101–130; BP diastolic 56–78; BMI 29.4
[2025-08-10] MEDS: HEPARIN 5000 UNITS SC ×4 (00:12→23:30)
[2025-08-10 08:14] LABS: Glucose - Point of Care 221 mg/dl (70-99)
[2025-08-10] MEDS: NOVOLOG FLEXPEN-MODERATE RESISTANCE 3 UNITS SC ×2 (08:51→12:43)
[2025-08-10] MEDS: FARXIGA 10 MG PO (08:53)
[2025-08-10] MEDS: PROTONIX 40 MG PO (08:53)
[2025-08-10] MEDS: NEURONTIN 100 MG PO ×3 (08:53→21:27)
[2025-08-10] MEDS: TOPROL XL 100 MG PO (08:53)
[2025-08-10] MEDS: LASIX 80 MG PO (08:53)
[2025-08-10] MEDS: MAGNESIUM OXIDE 400 MG PO (08:54)
--- NOTE | 2025-08-10 10:54 | W.PN.HOSP.TC ---
Today's Communication/Plan
-
labs in am
Assessment / Plan
Assessment / Plan
85yo Ugandan speaking F with PMHx of HTN, HLD, permanent Fib on Eliquis, DM, HFpEF, CKD stage 3a, GERD, L breast CA s/p lumpectomy, chemo and RT, came with recurrent dyspnea, found large L pleural effusion similar to the one seen on prior admission
month ago. Managed for CHF exacerbation, had chest tube placed on 08/06/25 draining around 3L over first 24h. Fluid exudate by Lights criteria, with negative cultures. Chest tube removed on 08/09/25, pending pleurodesis and decortication by CTS on
08/12/25
A/P:
#Dyspnea 2/2 acute on chronic HFpEF exacerbation and large recurrent L pleural effusion
#Reexpansion lung edema
#Pneumothorax s/p chest tube, most likely lung ex vacuo
CHest tube no drain on 08/09/25 - remove as per pulm
concerned for trapped lung, can be aftermath of RT or recurrent CHF causing persistent fluid
Might need decortication and pleurodesis - mgmt as per Pulm. COnt chest tube
Lasix, daily weight and electrolytes as per cardiology, switch to oral lasix on 10/10/24
Echo on 07/08/25: EF 65-70%, mild-moderate TR, moderate pulmonary HTN without LV dysfunction but mild LVH
Tylenol, Ultram
Patient had rash to morphine before, not anaphylaxis
Path with reactive atypical cells same as on previous thoracentesis
CTS planning for pleurodesis and decortication on 10/12/24, if unsuccessful - pleyurx
#hypokalemia
replete
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
outpatient card for monitoring q6-12m
#Afib, permanent
cont tele, HR control
Holding Eliquis 2/2 bloody output from tube as per Pulm
#2.3 cm right lower pole thyroid nodule
check TSH
outpatient US and further f/u for FNA - Outpatient Endo
#DM type 2 with nephropathy
#CKD stage 3a
CKD probably contributing to fluid retention
Accuchecks, Insulin SS, DM diet
CrCl 29 - stop metformin
Recurrent CHF - stop Actos
cont Jardiance, consider GLP-1 inh as outpatient, glimepiride
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
already on treatment
#HLD
#Neuropathy
#GERD
cont home meds
DVT ppx on SCDs when off Eliquis
Full code
I have spent at least 51min reviewing chart, test results, communicating with consultants, family and providing direct patient care
Anticipated Discharge: > 48 hours
Subjective/Interval History
-
Date of Service: August 10, 2025
Objective Data
-
Vital Signs:
Vital Signs
Temp Pulse Resp BP Pulse Ox
98.0 F 90 16 124/60 97
08/10/25 08:00 08/10/25 08:00 08/10/25 08:00 08/10/25 07:39 08/10/25 08:00
I&O
08/09/25 08/10/25 08/11/25
06:59 06:59 05:59
Intake Total 900 / 900 1200 / 1200
Output Total 200 / 200
Balance 700 / 700 1200 / 1200
Review of Systems
-
History Source: Patient
All other systems: Reviewed and negative
Physical Exam
-
General: No Apparent Distress
Cardiac: Regular Rhythm
GI: Soft, Nontender and Nondistended
Musculoskeletal: No Clubbing, No Cyanosis and No Edema
Neuro: Awake, Alert, Oriented and AO x 3
Psych: Calm
[2025-08-10 11:22] LABS: Glucose - Point of Care 202 mg/dl (70-99)
--- NOTE | 2025-08-10 12:07 | W.PN.PUL3 ---
Today's Communication / Plan
-
Chest tube removed
Tentative VATS procedure on Tuesday
CT surgery following
We will see after surgical intervention
Assessment
-
Patient is a 85-year-old female who presents to the hospital with worsening shortness of breath and orthopnea. Patient has known history of hypertension hyperlipidemia, A-fib and heart failure with preserved ejection fraction who recently was
hospitalized for similar symptoms. Patient had thoracentesis performed for left-sided pleural effusion diagnosed in 06/2025. Patient had thoracentesis performed x 2 with 1200 to 1500 mL fluid removed suggestive of exudative by protein criteria and
transudate by LDH criteria. Post-thoracentesis x-ray did not show full reexpansion of the lung raising concern for possibly trapped lung versus loculations. Patient reports that after discharge she did well for a while and then again progressively
developed worsening shortness of breath in addition to orthopnea. Bilateral lower extremity edema also worsened. The symptoms brought her back to the emergency room. Repeat imaging showed a large left-sided pleural effusion. Pulmonary
consultation was requested for further input.
#. Left sided pleural effusion, recurrent with trapped lung physiology
-Differential diagnosis include malignancy, postradiation changes with h/o left sided breast cancer (s/p lumpectomy and radiation), parapneumonic effusion etc. Volume overload likely exacerbated the effusion.
- Pneumothorax ex-vacuo with poor re-expansion of LLL again suggestive of trapped lung in the setting of h/o radiation therapy
- Cytology negative on 07/06 and 07/09 and (mesothelial cells, macrophages present, light lymphocyte background inflammation)
- Pleural fluid cultures negative x 3.
- Exudative by protein criteria however LDH not significantly elevated. Predominantly mononuclear cells suggestive of chronicity. Exudative versus pseudo exudative in the presence of diuresis. Fluid triglyceride less than 30, rules out
chylothorax. Presence of mesothelial cells makes tuberculosis unlikely.
- s/p chest tube placement 08/06, >3.1 Ltr fluid removed so far. Has been on water seal
- CT surgery consult for consideration for Decortication and mechanica pleurodesis. If not felt to be a candidate for surgery, will consider indwelling pleural catheter.
- 08/09. No chest tube out put since 5 pm 08/08. No tidling noted. ?malpositioned chest tube. No air leak. Chest X ray without enlarging pneumothorax. IR consult to discontinue chest tube
#2. LLL ground glass opacities. (?re-expansion edema)
- No obvious mass noted
- Re-expansion pulmonary edema related to large volume fluid removal, follow-up chest x-ray 08/09 with improving interstitial opacity.
- Continue diuresis, patient is afebrile, hold off antibiotics for now. Has been on room air. D/c Chest tube
#3. Pneumothorax ex vacuo.
- Pneumothorax noted post chest tube placement, Ex-vacuo due to trapped Lung, particularly LLL
- No air leak. Had been on water seal
- 08/09, d/c chest tube
#4. Acute on chronic HFpEF
- Continue IV Lasix, cardiology service on case
#5. Pulmonary hypertension, mild
- PASP 45 mm on ECHO
- Suspect primarily group II with underlying congestive heart failure
Other medical diagnoses:
- Chronic atrial fibrillation
- Hypertension, hyperlipidemia
- Chronic kidney disease
- Diabetes
- H/o Left sided breast cancer, s/p surgery x 3 and radiation therapy, 32 sessions per patient as well as gamma radiation therapy. Details not available.
Data:
ECHO 06/2025: 1. Normal LV size. Mild LVH. Normal LV systolic function. Estimated LVEF 65-70%.
2. Mild/moderate tricuspid regurgitation. Estimated pulmonary artery pressure of 45 mmHg assuming a right atrial pressure of 8 mmHg. Mild/moderately elevated PASP.
3. There is evidence of pleural effusion.
4. No prior study available for comparison.
Lexiscan 03/2025: Negative ECG for ischemia given the pharmacological study.
Normal Lexiscan nuclear stress test.
Systolic function is normal. The ejection fraction is 62%.
Stress Risk is low risk study, but the patient may be at moderate risk (risk of 1 - 3% AK or /year) due to pharmacologic agent used.
Subjective Data
-
Date of Service:
Date of Service: August 10, 2025
Subjective:
Patient on room air, conversing without difficulty
Objective Data
Data Reviewed
Vital Signs / I&O / Oxygen:
Vital Signs
Temp Pulse Resp BP Pulse Ox
98.6 F 98 18 101/59 98
08/10/25 11:14 08/10/25 11:14 08/10/25 11:14 08/10/25 11:14 08/10/25 11:14
Intake and Output
08/09/25 08/10/25 08/11/25
06:59 06:59 05:59
Intake Total 900 / 900 1200 / 1200
Output Total 200 / 200
Balance 700 / 700 1200 / 1200
SaO2 98
Physical Exam
General: Comfortable
HEENT: Normocephalic
Cardiovascular: S1-S2
Respiratory: Clear
GI: Soft and Non Distended
Neurology: Awake and Alert
Skin: Warm
Labs/Micro/Reports
Lab Data
08/09/25 06:12
08/09/25 06:12
Microbiology
08/06/25 14:59 Pleural Fluid Body Fluid Culture - Final
No Growth After 72 Hours
08/06/25 14:59 Pleural Fluid Gram Stain - Final
08/06/25 14:59 Pleural Fluid Acid Fast Bacilli Smear - Preliminary
08/06/25 14:59 Pleural Fluid Acid Fast Bacilli Culture - Preliminary
[2025-08-10 16:49] LABS: Glucose - Point of Care 197 mg/dl (70-99)
[2025-08-10] MEDS: NOVOLOG FLEXPEN-MODERATE RESISTANCE 1 UNITS SC (17:26)
[2025-08-10 21:27] LABS: Glucose - Point of Care 335 mg/dl (70-99)
[2025-08-10] MEDS: LIPITOR 10 MG PO (21:27)
[2025-08-10] MEDS: TYLENOL 650 MG PO (22:09)
[2025-08-10 22:38] LABS: Hematocrit 34.8 % (37.0-47.0); Hemoglobin 11.7 g/dL (12.0-16.0); Mean Corp Hgb Conc. 33.6 g/dL (33.0-37.0); Mean Corpuscular Volume 85.9 fL (81.0-99.0); Platelet Count 228 10^3/uL (130-400); Red Cell Dist. Width 16.0 % (11.5-14.5)
[2025-08-10 22:57] LABS: Troponin I < 0.012 ng/ml
[2025-08-10 23:02] LABS: ALT (SGPT) 21 U/L (0-35); AST (SGOT) 20 U/L (14-36); Albumin 2.9 g/dl (3.5-5.0); Alkaline Phosphatase 154 U/L (38-126); Blood Urea Nitrogen 45 mg/dl (7-17); Calcium 8.8 mg/dl (8.4-10.2); Carbon Dioxide 27 mmol/L (22-30); Chloride 97 mmol/L (98-107); Estimated Creatinine Clearance 29 ml/min; Glucose 310 mg/dl (70-99); Magnesium 2.0 mg/dl (1.6-2.3); Potassium 3.6 mmol/L (3.5-5.1); Sodium 131 mmol/L (135-145); Total Protein 5.3 g/dl (6.3-8.2); eGFR 36.64
--- NOTE | 2025-08-10 23:41 | PTCARENOTE ---
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 The pain is 5/10. Pt states that this pain is new and it's not in the area of the removed chest tube. Pt denies any SOB or difficulty breathing. EKG
shows Afib. PE=551/66, HR=96, sPo2=96% on RA. Tylenol given for chest pain. Stat lab work shows Trop negative. Stat CXRay stable compared to the one done earlier during the day. Pt states that she felt relief with Tylenol and her pain is 1-2/10. Pt
resting comfortably in her bed.
[2025-08-11] MEDS: LASIX 20 MG IV (01:08)
[2025-08-11 03:39] VITALS: BP 132/71
[2025-08-11 06:00] VITALS: BMI 29.4
[2025-08-11 07:06] LABS: Hematocrit 36.7 % (37.0-47.0); Hemoglobin 12.1 g/dL (12.0-16.0); Mean Corp Hgb Conc. 33.0 g/dL (33.0-37.0); Mean Corpuscular Volume 85.3 fL (81.0-99.0); Nucleated Red Blood Cells % 0 %; Platelet Count 259 10^3/uL (130-400); Red Cell Dist. Width 16.1 % (11.5-14.5)
[2025-08-11 07:24] VITALS: BP 141/69
[2025-08-11 07:27] LABS: ALT (SGPT) 22 U/L (0-35); AST (SGOT) 21 U/L (14-36); Albumin 3.2 g/dl (3.5-5.0); Alkaline Phosphatase 158 U/L (38-126); Blood Urea Nitrogen 41 mg/dl (7-17); Calcium 9.1 mg/dl (8.4-10.2); Carbon Dioxide 31 mmol/L (22-30); Chloride 100 mmol/L (98-107); Estimated Creatinine Clearance 31 ml/min; Glucose 226 mg/dl (70-99); Magnesium 1.9 mg/dl (1.6-2.3); Potassium 3.6 mmol/L (3.5-5.1); Sodium 135 mmol/L (135-145); Total Protein 5.7 g/dl (6.3-8.2); eGFR 40.05
[2025-08-11 07:48] LABS: GGTP 56 U/L (12-43)
[2025-08-11 08:14] LABS: Glucose - Point of Care 218 mg/dl (70-99)
[2025-08-11] MEDS: NOVOLOG FLEXPEN-MODERATE RESISTANCE 3 UNITS SC (08:48)
[2025-08-11] MEDS: MAGNESIUM OXIDE 400 MG PO (08:49)
[2025-08-11] MEDS: PROTONIX 40 MG PO (08:49)
[2025-08-11] MEDS: FARXIGA 10 MG PO (08:49)
[2025-08-11] MEDS: HEPARIN 5000 UNITS SC ×3 (08:49→23:16)
[2025-08-11] MEDS: LASIX 80 MG PO (08:50)
[2025-08-11] MEDS: TOPROL XL 100 MG PO (08:51)
[2025-08-11] MEDS: NEURONTIN 100 MG PO ×3 (08:51→21:21)
--- NOTE | 2025-08-11 10:40 | W.PN.HOSP.TC ---
Today's Communication/Plan
-
follow trop, re-call card
pending procedure in AM
Assessment / Plan
Assessment / Plan
85yo Croatian speaking F with PMHx of HTN, HLD, permanent Fib on Eliquis, DM, HFpEF, CKD stage 3a, GERD, L breast CA s/p lumpectomy, chemo and RT, came with recurrent dyspnea, found large L pleural effusion similar to the one seen on prior admission
month ago. Managed for CHF exacerbation, had chest tube placed on 08/06/25 draining around 3L over first 24h. Fluid exudate by Lights criteria, with negative cultures. Chest tube removed on 08/09/25, pending pleurodesis and decortication by CTS on
08/12/25
A/P:
#Dyspnea 2/2 acute on chronic HFpEF exacerbation and large recurrent L pleural effusion
#Reexpansion lung edema
#Pneumothorax s/p chest tube, most likely lung ex vacuo
CHest tube no drain on 08/09/25 - remove as per pulm
concerned for trapped lung, can be aftermath of RT or recurrent CHF causing persistent fluid
Might need decortication and pleurodesis - mgmt as per Pulm. COnt chest tube
Lasix, daily weight and electrolytes as per cardiology, switch to oral lasix on 10/10/24
Echo on 07/08/25: EF 65-70%, mild-moderate TR, moderate pulmonary HTN without LV dysfunction but mild LVH
Tylenol, Ultram
Patient had rash to morphine before, not anaphylaxis
Path with reactive atypical cells same as on previous thoracentesis
CTS planning for VATS (pleurodesis and decortication) on 10/12/24, if unsuccessful - pleyurx
#L chest pain
positional, sharp
Troponin neg
Most likely non-cardiac 2/2 recent chest tube and lung ex vacuo on L, however relieved by Nitro SL - in view of planned VATS- recall cariology
EKG without new ST changes or TWI
Serial trop WNL
#hypokalemia
replete
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
outpatient card for monitoring q6-12m
#Afib, permanent
cont tele, HR control
Holding Eliquis 2/2 bloody output from tube as per Pulm
#2.3 cm right lower pole thyroid nodule
check TSH
outpatient US and further f/u for FNA - Outpatient Endo
#DM type 2 with nephropathy
#CKD stage 3a
CKD probably contributing to fluid retention
Accuchecks, Insulin SS, DM diet
CrCl 29 - stop metformin
Recurrent CHF - stop Actos
cont Jardiance, consider GLP-1 inh as outpatient, glimepiride
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
already on treatment
#Elevated Alk.phos
GGT minimally elevated with neg RUQ pain
Most likely bone-related
will follow LFT
#HLD
#Neuropathy
#GERD
cont home meds
DVT ppx on SCDs when off Eliquis
Full code
I have spent at least 51min reviewing chart, test results, communicating with consultants, family and providing direct patient care
Anticipated Discharge: > 48 hours
Subjective/Interval History
-
Date of Service: August 11, 2025
Objective Data
-
Labs:
Laboratory Results
08/11/25
06:49
WBC 6.7
Hgb 12.1
Hct 36.7 L
Plt Count 259
Sodium 135
Potassium 3.6
Chloride 100
Carbon Dioxide 31 H
BUN 41 H
Creatinine 1.3 H
Glucose 226 H
Calcium 9.1
Total Bilirubin 0.7
AST 21
ALT 22
Alkaline Phosphatase 158 H
Vital Signs:
Vital Signs
Temp Pulse Resp BP Pulse Ox
97.4 F 89 16 141/69 98
08/11/25 07:24 08/11/25 07:24 08/11/25 07:24 08/11/25 07:24 08/11/25 07:24
I&O
08/10/25 08/11/25 08/12/25
06:59 05:59 06:59
Intake Total 1200 / 1200 840 / 840
Output Total 200 / 200
Balance 1200 / 1200 640 / 640
Review of Systems
-
History Source: Patient
All other systems: Reviewed and negative
Physical Exam
-
General: No Apparent Distress
HEENT: Normocephalic
Respiratory: Clear to Auscultation
GI: Soft, Nontender and Nondistended
Musculoskeletal: No Clubbing, No Cyanosis and No Edema
Neuro: Awake, Alert, Oriented and AO x 3
Psych: Calm
--- NOTE | 2025-08-11 10:54 | W.PN.UPDATE ---
Update Note
Progress Note Update
COrrection: pain relieved by Ultram, with neg troponin - non-cardiac 2/2 L lung disease. No need for card
[2025-08-11 11:23] LABS: Troponin I < 0.012 ng/ml
[2025-08-11 12:24] LABS: Glucose - Point of Care 172 mg/dl (70-99)
[2025-08-11] MEDS: NOVOLOG FLEXPEN-HIGH RESISTANCE 2 UNITS SC ×2 (12:28→16:23)
--- NOTE | 2025-08-11 12:57 | CM ---
Pt being tranferred to IVU in anticipation of thorasic surgery tomorrow
Plan: TBD post-op
[2025-08-11 13:11] VITALS: BP 114/88
--- NOTE | 2025-08-11 13:13 | PTCARENOTE ---
Pt and all her belongings were transferred to IVU room 2245. Report given to PERCY Langley.
[2025-08-11 15:13] VITALS: BP 124/77
[2025-08-11 16:18] LABS: Glucose - Point of Care 190 mg/dl (70-99)
--- NOTE | 2025-08-11 18:13 | PTCARENOTE ---
08/11/25 1315 Received pt via wheelchair from [address] into 2244 for VATS procedure 08/12. Pt on gambling monitor in A Fib. Pt oriented to room and surroundings with [employer] ultrasound tester # [id number]. Pt is AAO x3. Pt with no complaints of chest pain,
palpitations or shortness of breath. Pt on room air at 98%. Pt afebrile. Pt OOB chair. Plan of care explained to patient.
[2025-08-11 20:05] VITALS: BP 146/67
[2025-08-11] MEDS: LIPITOR 10 MG PO (21:21)
[2025-08-11 22:07] LABS: Glucose - Point of Care 221 mg/dl (70-99)
[2025-08-11 22:59] VITALS: BP 128/64
[2025-08-11 23:05] LABS: Glucose - Point of Care 224 mg/dl (70-99)
[2025-08-12] VITALS (16 sets, daily range): BP systolic 111–151; BP diastolic 63–137; PULSE 97; O2SAT 99; BMI 28.9
[2025-08-12] MEDS: BACTROBAN 2% OINTMENT 1 APPLIC NASAL (05:58)
--- NOTE | 2025-08-12 06:10 | PTCARENOTE ---
Afib on monitor, VSS. Pt denies pain or SOB. CHG bath and wipes completed. NPO after midnight. Pt ambulates with x 1 assist and RW. Call valle within reach
--- NOTE | 2025-08-12 06:45 | W.CVOR.SURPR ---
CVOR Surgeon Immed Pre Op
-
I have examined this patient prior to performance of the scheduled procedure.
The patient's condition is unchanged from the time of the dictated/written History and
Physical and the patient is able to undergo the scheduled procedure.
L side marked, all questions answered with industrial safety and health specialist at bedside.
--- NOTE | 2025-08-12 07:00 | PTCARENOTE ---
pt received at change of shift from previous RN. Pt resting in bed. reading efficiency course director used for assessment, ethiopian speaking. AAOX3. pt denies pain. pt confirms has been NPO after midnight for surgery. A fib on telemetry heart rate 80- low 100s. pulses
palpable. +1 pitting edema in lower extremities. pt on room air, lung sounds clear diminished in bases. active bowel sounds. voiding in bathroom, stress incontinence. pt using rollator in room to ambulate. pt updated on plan of care. see worklist
for full nursing assessment and interventions.
[2025-08-12 07:27] LABS: Glucose - Point of Care 181 mg/dl (70-99)
[2025-08-12] MEDS: FARXIGA PO (08:01)
[2025-08-12] MEDS: HEPARIN SC (08:02)
[2025-08-12] MEDS: LASIX PO (08:02)
[2025-08-12] MEDS: NOVOLOG FLEXPEN-HIGH RESISTANCE SC ×3 (08:03→20:29)
[2025-08-12] MEDS: NEURONTIN 100 MG PO ×2 (08:07→22:35)
[2025-08-12] MEDS: MAGNESIUM OXIDE 400 MG PO (08:07)
[2025-08-12] MEDS: TOPROL XL 100 MG PO (08:08)
[2025-08-12] MEDS: PROTONIX 40 MG PO (08:08)
[2025-08-12 11:41] LABS: Glucose - Point of Care 199 mg/dl (70-99)
--- NOTE | 2025-08-12 12:18 | W.PN.HOSP.TC ---
Today's Communication/Plan
-
Plan is for decortication and pleurodesis.
Perioperative antibiotics as per CT surgery
Transition to oral Lasix with compensated volume status.
Assessment / Plan
Assessment / Plan
85yo Australian speaking F with PMHx of HTN, HLD, permanent Fib on Eliquis, DM, HFpEF, CKD stage 3a, GERD, L breast CA s/p lumpectomy, chemo and RT, came with recurrent dyspnea, found large L pleural effusion similar to the one seen on prior admission
month ago. Managed for CHF exacerbation, had chest tube placed on 08/06/25 draining around 3L over first 24h. Fluid exudate by Lights criteria, with negative cultures. Chest tube removed on 08/09/25, pending pleurodesis and decortication by CTS on
08/12/25
A/P:
#Dyspnea 2/2 acute on chronic HFpEF exacerbation and large recurrent L pleural effusion
#Reexpansion lung edema
#Pneumothorax s/p chest tube, most likely lung ex vacuo
CHest tube no drain on 08/09/25 - remove as per pulm
concerned for trapped lung, can be aftermath of RT or recurrent CHF causing persistent fluid
Might need decortication and pleurodesis - mgmt as per Pulm. COnt chest tube
Lasix, daily weight and electrolytes as per cardiology, switch to oral lasix on 10/10/24
Echo on 07/08/25: EF 65-70%, mild-moderate TR, moderate pulmonary HTN without LV dysfunction but mild LVH
Tylenol, Ultram
Patient had rash to morphine before, not anaphylaxis
Path with reactive atypical cells same as on previous thoracentesis
CTS planning for VATS (pleurodesis and decortication) on 10/12/24, if unsuccessful - pleyurx
#L chest pain
positional, sharp
Troponin neg
Most likely non-cardiac 2/2 recent chest tube and lung ex vacuo on L, however relieved by Nitro SL - in view of planned VATS- recall cariology
EKG without new ST changes or TWI
Serial trop WNL
#hypokalemia
replete
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
outpatient card for monitoring q6-12m
#Afib, permanent
cont tele, HR control
Holding Eliquis 2/2 bloody output from tube as per Pulm
#2.3 cm right lower pole thyroid nodule
TSH within normal limit
outpatient US and further f/u for FNA - Outpatient Endo
#DM type 2 with nephropathy
#CKD stage 3a
CKD probably contributing to fluid retention
Accuchecks, Insulin SS, DM diet
CrCl 29 - stop metformin
Recurrent CHF - stop Actos and glimepiride
cont Jardiance, consider GLP-1 inh as outpatient
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
already on treatment
#Elevated Alk.phos
GGT minimally elevated with neg RUQ pain
Most likely bone-related
will follow LFT
#HLD
#Neuropathy
#GERD
cont home meds
DVT ppx on SCDs when off Eliquis
Full code
I have spent at least 51min reviewing chart, test results, communicating with consultants, family and providing direct patient care
Anticipated Discharge: > 48 hours
Subjective/Interval History
-
Date of Service: August 12, 2025
Objective Data
-
Vital Signs:
Vital Signs
Temp Pulse Resp BP Pulse Ox
98.3 F 109 20 124/86 98
08/12/25 12:05 08/12/25 08:08 08/12/25 12:05 08/12/25 08:08 08/12/25 12:05
I&O
08/11/25 08/12/25 08/13/25
05:59 06:59 06:59
Intake Total 840 / 840 100 / 100
Output Total 200 / 200
Balance 640 / 640 100 / 100
Physical Exam
-
General: No Apparent Distress
HEENT: Normocephalic
Respiratory: Clear to Auscultation
GI: Soft, Nontender and Nondistended
Musculoskeletal: No Clubbing, No Cyanosis and No Edema
Neuro: Awake, Alert, Oriented and AO x 3
Psych: Calm
--- NOTE | 2025-08-12 13:58 | CM ---
Reviewed preoperative and postoperative instructions and restrictions with the patient using the [employer] brass bobbin winder IPAD. Patient lives alone in a apartment on the 11th floor, elevator access, ambulates with a rollator and also has a shower chair
and grab bars. Patient has a SULFUR CHLORIDE OPERATOR who assists patient with her ADLS. Patient is agreeable to a home visit by CT Transitional RN. ALMAS to follow
[2025-08-12 15:30] LABS: Urine Character Clear (Clear)
[2025-08-12 15:39] LABS: Urine Squamous Cell 0-2 /LPF (Few)
[2025-08-12 15:40] LABS: Urine White Cell 0-2 /HPF (0-5)
[2025-08-12 17:34] LABS: Glucose - Point of Care 192 mg/dl (70-99)
[2025-08-12] MEDS: DILAUDID 0.25 MG IV ×2 (17:36→17:50)
[2025-08-12] MEDS: ANCEF IV (17:38)
--- NOTE | 2025-08-12 17:41 | W.PN.CT.SURG ---
CT Surgery Operative Note
-
THORACIC SURGERY OPERATIVE REPORT
Preoperative Diagnosis: Chronic left pleural effusion with large volume, lung entrapment
Postoperative Diagnosis: Same
Procedure(s) Performed:
1. Left video-assisted thoracoscopic surgery, decortication and mechanical and chemical pleurodesis
Date of Surgery: 08/12/2025
Comorbidities:
1. Hypertension
2. Hypercholesterolemia
3. Atrial fibrillation
4. HFpEF
5. CKD IIIA
Attending Surgeon: Korin Rios MD, MPH
Assistants: Roland Santoyo PA-C (present and necessary to surgical first assistant, exchanging robotic instruments, retraction, suction, exposure, suture management, and wound closure under my direction)
Anesthesiology: Giovani Pereira MD and Teresita Sexton CRNA
Scrub and Circulating RNs: Mason Camacho RN, Erick Bowser RN
Anesthesia: Dual Lumen GETA
EBL: 150 cc
Products: None
Indication(s) for Procedures: 85-year-old female with history of chronic pleural effusion requiring multiple thoracentesis/drainage of multiple liters at a time who is presented with repeat symptoms of significant shortness of breath.
Findings: Her pleural space certainly has evidence of chronic inflammation and effusion though surprisingly, there was not a significant rind as I would have expected on the lung. The lung itself has evidence of disease and is somewhat friable.
There was small amount of rind that was rather soft but we were able to peel it off mostly on the diaphragmatic surface. Pericardium and pericardial fat were all also dense and show evidence of chronic inflammation as well.
Specimen(s):
Left lung effusion
Left lung pleural debridement
Left chest pleura
Description of Procedure: The patient was taken to the operating room. Induction via general anesthesia with endotracheal intubation was performed and peripheral venous access and arterial monitoring were inserted. Their identity and procedure to be
performed were verified and they were positioned with the left side up on the operating table. The patient was then prepped and draped in a sterile fashion. A preoperative time-out was performed with all members of the team present. A 5mm port was
placed in the midaxillary line at approximately the eighth intercostal space using direct visualization to ensure entrance into thoracic cavity without lung injury. We placed the camera and were able to see were in the right place so we went ahead
and insufflated the chest. Patient tolerate insufflation without complication. We then made a working port at the fifth intercostal space anterior axillary line through direct visualization from inside using our camera. A 5 cm incision was made
and Bovie used to get through the intercostal muscle. A small wound retractor was placed and used as our working port.
We began by surveying the thoracic cavity noting some effusion which we obtained a sample prior to suctioning out. The entire chest cavity notably with signs of chronic inflammation and lung overall diseased appearing without much thickened rind.
There is not much of an inferior pulmonary ligament, the entire diaphragmatic surface was easily viewed and evaluated. There was some thin early rind that appeared to be forming in the lower lobe particular diaphragmatic surface. We carefully
decorticated this obtaining sample to send. We then proceeded to mechanically pleurodesis the entire chest wall obtaining good result. Given the suboptimal decortication due to lack of significant rind, we opted to perform pleural tenting in the
apex in hopes of encouraging lung adhesion and obliteration of the existing space. At this point we observed the lung expanding, which appeared to be adequate. I did note there was a small area of injury to the lung from decortication so pro-gel
was used to reinforce this area. We then placed a 24 Macedonian [place] drain under direct guidance into the base of the lung over the diaphragm and a 24 Macedonian straight tube up to the apex. We then watched the lung expand prior to removing all her
ports. Incisions were closed in 3 layers including the fascia, dermal, and epidermis. Once or deep muscular layers were closed we then instilled 1 g of doxycycline diluted in 100 cc into her left chest via her chest tube. Additional local
anesthesia was injected into all incision sites. The skin wound was cleansed and sealed with Dermabond glue. Her chest tube atrium was hung on an IV pole above the level of the patient so as to contain all of the doxycycline within the chest cavity
to allow an inflammatory reaction to occur. Will plan to leave this for 4 hours after which we will place chest tube to suction at -20.
All instrument, sponge, and needle counts were confirmed to be correct x 2 at the end of the operation. The patient was transferred to the cardiac intensive care unit extubated in critical but stable condition.
I, Dr. Korin Rios, was present, scrubbed for, and performed all critical elements of this procedure.
Korin Rios MD, MPH
Cardiothoracic Surgeon
[facility]
This operative dictation was created using the [employer] dictation system. Please excuse any grammatical, typographical, or 'sound alike' errors
[2025-08-12] MEDS: DILAUDID 0.5 MG IV ×2 (18:46→23:59)
[2025-08-12] MEDS: ULTRAM 50 MG PO (19:09)
--- NOTE | 2025-08-12 19:36 | PTCARENOTE ---
Patient received from WHEEL PRESS CLERK at 1825; Croatian speaking; VSS; Afib on monitor; +2 DP pulses; Lungs diminished throughout; Shallow respirations; SpO2 97-100% on 2L NC; Left pleural CTx2 connected to water seal and draining sanguineous drainage - no
air leak or crepitus noted but tidaling present; Chest tubes hanging above patient on IV pole to help keep instilled medication in chest tube site as per MD Rios; Hypoactive BS; DTV; Left chest incision covered by ABD - CDI; PIVx2 - #18 RAC and #22
left forearm; Right radial A-line in place - line zeroed and level; IV Dilaudid and PO Tramadol given for pain; No NSAIDs given at this time as per MD Rios; See nursing documentation for further information; Patient's family at bedside and report
given to lieutenant shift supervisor RN
[2025-08-12] MEDS: ANCEF 10 IV (20:29)
[2025-08-12] MEDS: NEURONTIN PO (20:30)
--- NOTE | 2025-08-12 20:30 | PTCARENOTE ---
Patient received resting in bed dozing intermittently. IV Dilaudid 0.5 mg and Ultram 50 mg PO for pain management. Patient awake and alert during periods of care. Patient's son at bedside. Patient speaks limited Slovak. Language line in room.
Patient's son driller and reamer for patient. Left chest tube to atrium/water seal - Hanging on IV pole per MD orders. Chest tube dressing intact. No crepitus. O2 at 2L via NC. SpO2 100%. No c/o SOB. Atrial Fibrillation. Heart rate 80-90's. Right
radial arterial line intact - Pressure bag/Saline flush - Flushes without difficulty - Zeroed and calibrated. Afebrile. Positive, palpable pulses. Ankle edema. External Female Urinary Device placed. Left upper extremity limb restriction.
Assessment as documented.
[2025-08-12] MEDS: SENOKOT PO (20:34)
[2025-08-12 21:41] LABS: Blood Urea Nitrogen 42 mg/dl (7-17); Calcium 8.4 mg/dl (8.4-10.2); Carbon Dioxide 27 mmol/L (22-30); Chloride 99 mmol/L (98-107); Estimated Creatinine Clearance 29 ml/min; Glucose 278 mg/dl (70-99); Magnesium 2.2 mg/dl (1.6-2.3); Potassium 4.1 mmol/L (3.5-5.1); Sodium 136 mmol/L (135-145); eGFR 36.64
--- NOTE | 2025-08-12 22:15 | PTCARENOTE ---
Patient's chest tube connected to -20 wall suction at 2200 per MD order. 140 ml brownish drainage. No air leak. Assessment as documented.
[2025-08-12 22:28] LABS: Glucose - Point of Care 245 mg/dl (70-99)
[2025-08-12] MEDS: TYLENOL 1000 MG PO (22:35)
[2025-08-12] MEDS: LIPITOR 10 MG PO (22:35)
[2025-08-12] MEDS: ANCEF 5 IV (22:35)
[2025-08-12] MEDS: NOVOLOG FLEXPEN 2 UNITS SC (23:52)
[2025-08-13] VITALS (16 sets, daily range): BP systolic 92–132; BP diastolic 56–107; BMI 28.1
--- NOTE | 2025-08-13 00:30 | PTCARENOTE ---
Patient sleeping. IV Dilaudid 0.5mg administered for pain management. Accucheck result 245 - PA for CT Surgery made aware - New order for 2 units Novolog Flexpen - given without difficulty. Patient's son resting in room. Assessment/Interventions
as documented.
[2025-08-13 03:35] LABS: Hematocrit 38.5 % (37.0-47.0); Hemoglobin 12.4 g/dL (12.0-16.0); Mean Corp Hgb Conc. 32.2 g/dL (33.0-37.0); Mean Corpuscular Volume 87.7 fL (81.0-99.0); Nucleated Red Blood Cells % 0 %; Platelet Count 273 10^3/uL (130-400); Red Cell Dist. Width 16.1 % (11.5-14.5)
[2025-08-13 04:40] LABS: Blood Urea Nitrogen 48 mg/dl (7-17); Calcium 8.4 mg/dl (8.4-10.2); Carbon Dioxide 29 mmol/L (22-30); Chloride 99 mmol/L (98-107); Estimated Creatinine Clearance 25 ml/min; Glucose 255 mg/dl (70-99); Magnesium 2.2 mg/dl (1.6-2.3); Potassium 4.3 mmol/L (3.5-5.1); Sodium 135 mmol/L (135-145); eGFR 31.21
[2025-08-13] MEDS: TYLENOL 1000 MG PO ×3 (06:08→22:23)
[2025-08-13] MEDS: ANCEF 5 IV ×2 (06:08→13:48)
--- NOTE | 2025-08-13 06:15 | PTCARENOTE ---
Patient sleeping. Patient with no urge to void. Bladder scan result 80ml. AM labs collected and sent. Portable CXR completed. Right radial arterial line discontinued per PA order. Patient's son resting in room. Assessment/Interventions as
documented.
--- NOTE | 2025-08-13 07:24 | W.PN.PUL.V3 ---
Today's Communication / Plan
-
Tolerated video-assisted thorascopic surgery/decortication and pleurodesis
Monitor chest tube output
Follow chest x-ray
Increase activity
Reviewed with son at the bedside
Assessment
-
Patient is a 85-year-old female who presents to the hospital with worsening shortness of breath and orthopnea. Patient has known history of hypertension hyperlipidemia, A-fib and heart failure with preserved ejection fraction who recently was
hospitalized for similar symptoms. Patient had thoracentesis performed for left-sided pleural effusion diagnosed in 06/2025. Patient had thoracentesis performed x 2 with 1200 to 1500 mL fluid removed suggestive of exudative by protein criteria and
transudate by LDH criteria. Post-thoracentesis x-ray did not show full reexpansion of the lung raising concern for possibly trapped lung versus loculations. Patient reports that after discharge she did well for a while and then again progressively
developed worsening shortness of breath in addition to orthopnea. Bilateral lower extremity edema also worsened. The symptoms brought her back to the emergency room. Repeat imaging showed a large left-sided pleural effusion. Pulmonary
consultation was requested for further input.
#. Left sided pleural effusion, recurrent with trapped lung physiology
-Differential diagnosis include malignancy, postradiation changes with h/o left sided breast cancer (s/p lumpectomy and radiation), parapneumonic effusion etc. Volume overload likely exacerbated the effusion.
- Pneumothorax ex-vacuo with poor re-expansion of LLL again suggestive of trapped lung in the setting of h/o radiation therapy
- Cytology negative on 07/06 and 07/09 and (mesothelial cells, macrophages present, light lymphocyte background inflammation)
- Pleural fluid cultures negative x 3.
- Exudative by protein criteria however LDH not significantly elevated. Predominantly mononuclear cells suggestive of chronicity. Exudative versus pseudo exudative in the presence of diuresis. Fluid triglyceride less than 30, rules out
chylothorax. Presence of mesothelial cells makes tuberculosis unlikely.
- s/p chest tube placement 08/06, >3.1 Ltr fluid removed so far. Has been on water seal
- CT surgery consult for consideration for Decortication and mechanica pleurodesis. If not felt to be a candidate for surgery, will consider indwelling pleural catheter.
- 08/09. No chest tube out put since 5 pm 08/08. No tidling noted. ?malpositioned chest tube. No air leak. Chest X ray without enlarging pneumothorax. IR consult to discontinue chest tube
Status post video-assisted thorascopic surgery, decortication and mechanical and chemical pleurodesis 08/12/2025
#2. LLL ground glass opacities. (?re-expansion edema)
- No obvious mass noted
- Re-expansion pulmonary edema related to large volume fluid removal, follow-up chest x-ray 08/09 with improving interstitial opacity.
- Continue diuresis, patient is afebrile, hold off antibiotics for now. Has been on room air. D/c Chest tube
#3. Pneumothorax ex vacuo.
- Pneumothorax noted post chest tube placement, Ex-vacuo due to trapped Lung, particularly LLL
- No air leak. Had been on water seal
- 08/09, d/c chest tube
#4. Acute on chronic HFpEF
- Continue IV Lasix, cardiology service on case
#5. Pulmonary hypertension, mild
- PASP 45 mm on ECHO
- Suspect primarily group II with underlying congestive heart failure
Other medical diagnoses:
- Chronic atrial fibrillation
- Hypertension, hyperlipidemia
- Chronic kidney disease
- Diabetes
- H/o Left sided breast cancer, s/p surgery x 3 and radiation therapy, 32 sessions per patient as well as gamma radiation therapy. Details not available.
Data:
ECHO 06/2025: 1. Normal LV size. Mild LVH. Normal LV systolic function. Estimated LVEF 65-70%.
2. Mild/moderate tricuspid regurgitation. Estimated pulmonary artery pressure of 45 mmHg assuming a right atrial pressure of 8 mmHg. Mild/moderately elevated PASP.
3. There is evidence of pleural effusion.
4. No prior study available for comparison.
Lexiscan 03/2025: Negative ECG for ischemia given the pharmacological study.
Normal Lexiscan nuclear stress test.
Systolic function is normal. The ejection fraction is 62%.
Stress Risk is low risk study, but the patient may be at moderate risk (risk of 1 - 3% ME or /year) due to pharmacologic agent used.
Subjective Data
-
Date of Service:
Date of Service: August 13, 2025
Chief Complaint: Pulmonary Follow Up and Dyspnea Follow Up
Subjective:
Tolerated extubation, pain controlled, some chest congestion and some cough, no pleurisy-son available for translation at the bedside
Review of Systems
General: Other ( per HPI)
Objective Data
Data Reviewed
Vital Signs / I&O:
Vital Signs
Temp Pulse Resp BP Pulse Ox
97.9 F 83 11 126/81 91
08/13/25 03:30 08/13/25 06:55 08/13/25 06:25 08/13/25 06:01 08/13/25 06:55
Intake and Output
08/12/25 08/13/25 08/14/25
06:59 06:59 06:59
Intake Total 220 / 220
Output Total 410 / 410
Balance -190 / -190
SaO2: 91
Nasal Cannula flow liters per minute: 2
Physical Exam
General: Respiratory Distress (n) and Comfortable
HEENT: Normocephalic and Anicteric
Cardiovascular: Regular Rhythm and Murmur
Respiratory: Crackles (Rare basilar on the left), Rhonchi (n), Non-Labored Respirations, Accessory Resp Muscle Use (n), Stridor (n) and Chest Tube
GI: Soft and Non Distended
Neurology: Awake, Alert and No Motor Deficits
Skin: Warm, Good Color, Cyanosis (n) and Jaundice (n)
Labs/Micro/Reports
Lab Data
08/13/25 03:22
08/13/25 04:03
Microbiology
08/06/25 14:59 Pleural Fluid Fungal Culture - Preliminary
Culture in progress.
Positive cultures are reported as soon as detected.
Final report to follow in four to five weeks.
[2025-08-13 08:29] LABS: Glucose - Point of Care 232 mg/dl (70-99)
[2025-08-13] MEDS: MAGNESIUM OXIDE 400 MG PO (08:30)
[2025-08-13] MEDS: SENOKOT 8.6 MG PO ×2 (08:30→20:29)
[2025-08-13] MEDS: LASIX 80 MG PO (08:30)
[2025-08-13] MEDS: MIRALAX 17 GRAMS PO (08:30)
[2025-08-13] MEDS: FARXIGA 10 MG PO (08:30)
[2025-08-13] MEDS: PROTONIX 40 MG PO (08:30)
[2025-08-13] MEDS: TOPROL XL 100 MG PO (08:30)
[2025-08-13] MEDS: NEURONTIN 100 MG PO ×3 (08:30→22:24)
[2025-08-13] MEDS: LIDOCAINE 4% PATCH 1 PATCH TOPICAL (08:31)
[2025-08-13] MEDS: NOVOLOG FLEXPEN-HIGH RESISTANCE 4 UNITS SC ×2 (08:32→13:08)
--- NOTE | 2025-08-13 08:44 | PTCARENOTE ---
Assumed care of patient from [facility] shift lead RN. AAO x 3, son in room for am assessment. Denies complaint. A fib on monitor. Room air 99%, Using IS independently to 1000. Lt lateral chest tubes x 2 received on -20 cm suction. No air leaks or
crepitus noted. Dressing c,d, i. drainage dark purple/brown. Placed to water seal during MD rounds. Abdomen soft and non tender. Has not voided, bladder scanned for 78 ml. Fluid encouraged. Plus one lower extremity edema appreciated. Pulses
palpable. Plan for day discussed
[2025-08-13] MEDS: NEURONTIN PO (08:50)
[2025-08-13] MEDS: HEPARIN SC (08:50)
--- NOTE | 2025-08-13 09:36 | W.PN.CT ---
Today's Communication / Plan
-
-pod #1
-L CT @ -20 sxn, no air leak, put out 410 dark bloody output since OR. CT was placed on water seal in am. Follow CXR at noon.
-no Ptx on cxr in am
-encourage IS (1000 so far), ambulate
Assessment / Plan
-
- Chronic left pleural effusion with large volume, lung entrapment- s/p Left video-assisted thoracoscopic surgery, decortication and mechanical and chemical pleurodesis by Dr. Rios on 08/12/25, pod #1
- Chronic pleural effusion requiring multiple thoracentesis/drainage of multiple liters at a time
- Hypertension
- Hypercholesterolemia
- Atrial fibrillation
- HFpEF
- CKD IIIA (Cr 1.3-1.5)
Discussed patient care with: Nursing and Care Team
Subjective
-
Date of Service: August 13, 2025
Objective Data
-
Lab Results
08/13/25 03:22
08/13/25 04:03
Vital Signs
Vital Signs
Temp Pulse Resp BP Pulse Ox
98.2 F 94 20 120/97 95
08/13/25 08:00 08/13/25 08:40 08/13/25 08:00 08/13/25 08:00 08/13/25 08:40
CT Intake/Output/Weight
08/12/25 08/13/25 08/13/25
18:59 06:59 18:59
Intake Total 100 / 220 120 / 220 360 / 360
Output Total 410 / 410 80 / 80
Balance 100 / -190 -290 / -190 280 / 280
SaO2: 95
Physical Exam
-
General: Awake and AOx3
Cardiovascular: Irregular rate & rhythm and No Murmurs
Respiratory: Decreased Breath Sounds
Incision: Clean (no crepitus), Dry and Dressing Intact
Extremities: Other (trace edema b/l)
Abdomen: soft, nontender, nondistended
Data Reviewed
-
Lab Results: Results Reviewed
Medications: Active Meds Reviewed
Chest X-Ray: Report Reviewed and Image Reviewed
ECG: Report Reviewed and Image Reviewed
--- NOTE | 2025-08-13 09:52 | PTCARENOTE ---
received patient from CVICU, patient speaks Ukranian, language line in room. monitor shows Afib, VSS. 2 chest tubes intact, draining dark, reddened, purple fluid, presently to water seal. will obtain portable chest xray at noon as ordered. left
under breast on side of body 2 inch incision has vero, no redness noted. patient uses I/S to 1000, lung amezcua diminished on RA , o2 sat 97%.
--- NOTE | 2025-08-13 10:53 | W.PN.HOSP.TC ---
Today's Communication/Plan
-
Chest tube on waterseal with follow-up chest x-ray pending
Adjust analgesic regimen
Has been off Eliquis
Continue blood glucose monitoring covering with insulin sliding scale
PT assessments
Assessment / Plan
Assessment / Plan
85yo Japanese speaking F with PMHx of HTN, HLD, permanent Fib on Eliquis, DM, HFpEF, CKD stage 3a, GERD, L breast CA s/p lumpectomy, chemo and RT, came with recurrent dyspnea, found large L pleural effusion similar to the one seen on prior admission
month ago. Managed for CHF exacerbation, had chest tube placed on 08/06/25 draining around 3L over first 24h. Fluid exudate by Lights criteria, with negative cultures. Chest tube removed on 08/09/25, pending pleurodesis and decortication by CTS on
08/12/25
A/P:
#Dyspnea 2/2 acute on chronic HFpEF exacerbation and large recurrent L pleural effusion
#Reexpansion lung edema
#Pneumothorax s/p chest tube, most likely lung ex vacuo
CHest tube no drain on 08/09/25 - remove as per pulm
concerned for trapped lung, can be aftermath of RT or recurrent CHF causing persistent fluid
Might need decortication and pleurodesis - mgmt as per Pulm. COnt chest tube
Lasix, daily weight and electrolytes as per cardiology, switch to oral lasix on 10/10/24
Echo on 07/08/25: EF 65-70%, mild-moderate TR, moderate pulmonary HTN without LV dysfunction but mild LVH
Tylenol, Ultram
Patient had rash to morphine before, not anaphylaxis
Path with reactive atypical cells same as on previous thoracentesis
Status post VATS with decortication on 08/12. Postprocedure chest tube currently on waterseal with follow-up chest x-ray
#L chest pain
positional, sharp
Troponin neg
Most likely non-cardiac 2/2 recent chest tube and lung ex vacuo on L, however relieved by Nitro SL - in view of planned VATS- recall cariology
EKG without new ST changes or TWI
Serial trop WNL
#hypokalemia
replete
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
outpatient card for monitoring q6-12m
#Afib, permanent
cont tele, HR control
Holding Eliquis 2/2 bloody output from tube as per Pulm
#2.3 cm right lower pole thyroid nodule
TSH within normal limit
outpatient US and further f/u for FNA - Outpatient Endo
#DM type 2 with nephropathy
Basal bolus protocol with serial Accu-Cheks
Monitor oral intake
Continue Farxiga
#CKD stage 3a
CKD probably contributing to fluid retention
Accuchecks, Insulin SS, DM diet
CrCl 29 - stop metformin
Recurrent CHF - stop Actos and glimepiride
cont Jardiance, consider GLP-1 inh as outpatient
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
already on treatment
#Elevated Alk.phos
GGT minimally elevated with neg RUQ pain
Most likely bone-related
will follow LFT
#HLD
#Neuropathy
#GERD
cont home meds
DVT ppx on SCDs when off Eliquis
Full code
I have spent at least 51min reviewing chart, test results, communicating with consultants, family and providing direct patient care
Anticipated Discharge: > 48 hours
Subjective/Interval History
-
Date of Service: August 13, 2025
Objective Data
-
Labs:
Laboratory Results
08/13/25 08/13/25
03:22 04:03
WBC 10.1
Hgb 12.4
Hct 38.5
Plt Count 273
Sodium Cancelled 135
Potassium Cancelled 4.3
Chloride Cancelled 99
Carbon Dioxide Cancelled 29
BUN Cancelled 48 H
Creatinine Cancelled 1.6 H
Glucose Cancelled 255 H
Calcium Cancelled 8.4
Vital Signs:
Vital Signs
Temp Pulse Resp BP Pulse Ox
98.2 F 82 20 124/107 98
08/13/25 08:00 08/13/25 10:25 08/13/25 08:00 08/13/25 09:00 08/13/25 10:20
I&O
08/12/25 08/13/25 08/14/25
06:59 06:59 06:59
Intake Total 220 / 220 360 / 360
Output Total 410 / 410 80 / 80
Balance -190 / -190 280 / 280
Physical Exam
-
General: Well Developed and No Apparent Distress
HEENT: Normocephalic, Atraumatic and Moist Mucous Membranes
Respiratory: Clear to Auscultation and Chest Tubes (Left chest tube on waterseal with hemorrhagic effusion)
Cardiac: Regular Rhythm and S1/S2; Negative Murmur, Rub or Gallop
GI: Soft, Nontender, Nondistended and Normal Bowel Sounds; Negative Organomegaly
Rectal: Deferred by Provider
Musculoskeletal: No Clubbing, No Cyanosis and No Edema
Skin: Negative Rash
Neuro: Nonfocal/Grossly Intact
--- NOTE | 2025-08-13 11:58 | CM ---
Chart reviewed. Patient is independent of ADLS, equatorial guinean speaking, lives in apartment 11th floor, elevator access, receives RN/PT/OT with [facility], as well as a LEGAL ARCHIVIST. Plan is for the patient to return home with [facility] . CM to follow
[2025-08-13 13:08] LABS: Glucose - Point of Care 244 mg/dl (70-99)
--- NOTE | 2025-08-13 13:17 | PTCARENOTE ---
used [place] Island[place] diamond sander, informed patient of what her blood sugar was and that I needed to give her insulin, also I ordered her something to eat for lunch, patient stated, 'my sugars are high so I should not eat.' explained to patient why she should
eat, she verbalized understanding but still doesnot want to eat.
--- NOTE | 2025-08-13 13:46 | PTCARENOTE ---
Janine CVPA put chest tubes back on -20cm suction.
[2025-08-13] MEDS: FLUSH (NSS) 1 FLUSH IV (13:49)
--- NOTE | 2025-08-13 14:12 | PN.DE.MGMTRT ---
Insulin Management
- -
08/13/2025 Diabetes Management Consult
Patient admitted 08/05 with breathing problem increased weakness. Diabetes Management Consult 08/13. PMH HTN, diabetes, HCL, afib, ckd 3a, GERD, L breast ca - chemo. Prior to admission was taking Trulicity 4.5 mg Fridays, Jardiance 10 mg daily,
metformin 850 mg BID, Actos 30 mg daily, glimepiride 1 mg BID (these medications were confirmed with granddaughter 08/13). A1C on admission 7.1%, cr 1.6, eGFR 31.21.
08/06 CT scan - l pleural effusion Chest tube x 2 inserted.
08/12 Decortication & mechanical and chemical pleurodesis. Glucose range 181 to 245.
08/13 POD 1 s/p Decortication & mechanical and chemical pleurodesis. Patient is Unkranian speaking only. Language line director aeronautics commission [id number] used today. Information from patient conflicting. Called granddaughter today to confirm information.
Granddaughter states patient does not have CHF.Patient is seen by endocrine, Mercy Del Castillo at [facility] for ongoing care.
08/13 Fasting glucose 255. Due to patient cr 1.6 will not resume metformin or actos. Will continue Farxiga 10 mg daily and resume home medication glimepiride 1 mg BID first dose with dinner.
Discussed with nurse
Will follow.
Diabetes History
- -
Type of Diabetes: 2
Pre-Admission Diabetes Regimen
08/12/25 08/13/25 08/13/25
21:11 03:22 04:03
Creatinine 1.4 H Cancelled 1.6 H
Lab Results
Hemoglobin A1c 7.1 % (4.0-5.9) H 08/06/25 06:52
Insulin Pump Settings
IP Diabetes Regimen
08/12/25 08/12/25 08/12/25
17:32 21:11 22:27
Glucose 278 H
POC Glucose 192 H 245 H
08/13/25 08/13/25 08/13/25
03:22 04:03 08:28
Glucose Cancelled 255 H
POC Glucose 232 H
08/13/25
13:06
Glucose
POC Glucose 244 H
Meal type: Breakfast
Amount consumed: 90%
Patient Education
[2025-08-13] MEDS: AMARYL 1 MG PO (15:47)
[2025-08-13 17:53] LABS: Glucose - Point of Care 262 mg/dl (70-99)
[2025-08-13] MEDS: NOVOLOG FLEXPEN-HIGH RESISTANCE 7 UNITS SC (17:53)
[2025-08-13] MEDS: REMOVE LIDOCAINE PATCH 1 PATCH REMOVE (20:29)
[2025-08-13] MEDS: LIPITOR 10 MG PO (22:24)
[2025-08-13 22:26] LABS: Glucose - Point of Care 181 mg/dl (70-99)
--- NOTE | 2025-08-13 22:35 | PTCARENOTE ---
Received pt @ change of shift. AAOx3, VSS-- Afib on monitor with occasional PVCs. Family bedside. Language line in room. Chest tube in place. Suction -20cm of water. C/o discomfort at tube site-- rearranged pt in bed with pillow-- denied additional
pain medications. Discussed plan of care with patient and family. Verbalizes understanding. Call valle within reach.
[2025-08-14] VITALS (12 sets, daily range): BP systolic 98–123; BP diastolic 53–72; PULSE 91–101; O2SAT 96–98; BMI 28.6
[2025-08-14] MEDS: TYLENOL 1000 MG PO ×2 (05:41→21:06)
--- NOTE | 2025-08-14 08:00 | PN.DE.MGMTRT ---
Insulin Management
- -
08/14/2025 Diabetes Management Consult Follow up
Patient admitted 08/05 with breathing problem increased weakness. Diabetes Management Consult 08/13. PMH HTN, diabetes, HCL, afib, ckd 3a, GERD, L breast ca - chemo. Prior to admission was taking Trulicity 4.5 mg Fridays, Jardiance 10 mg daily,
metformin 850 mg BID, Actos 30 mg daily, glimepiride 1 mg BID (these medications were confirmed with granddaughter 08/13). A1C on admission 7.1%, cr 1.6, eGFR 31.21.
08/06 CT scan - l pleural effusion Chest tube x 2 inserted.
08/12 Decortication & mechanical and chemical pleurodesis. Glucose range 181 to 245.
08/13 POD 1 s/p Decortication & mechanical and chemical pleurodesis. Patient is Unkranian speaking only. Language line retail area manager [id number] used today. Information from patient conflicting. Called granddaughter today to confirm information.
Granddaughter states patient does not have CHF.Patient is seen by endocrine, Mercy Del Castillo at [facility] for ongoing care.
08/13 Fasting glucose 255. Due to patient cr 1.6 will not resume metformin or actos. Will continue Farxiga 10 mg daily and resume home medication glimepiride 1 mg BID first dose with dinner.
08/14 POD 2 s/p Decortication & mechanical and chemical pleurodesis. HS glucose improved last night 181. Fasting glucose today 219. To receive glimepiride 1 mg with breakfast, first dose with breakfast and continue Farxiga.
Discussed with nurse
Will follow.
Diabetes History
- -
Type of Diabetes: 2
Pre-Admission Diabetes Regimen
Lab Results
Hemoglobin A1c 7.1 % (4.0-5.9) H 08/06/25 06:52
Insulin Pump Settings
IP Diabetes Regimen
08/13/25 08/13/25 08/13/25
08:28 13:06 17:52
POC Glucose 232 H 244 H 262 H
08/13/25
22:25
POC Glucose 181 H
Meal type: Lunch
Meal type: Breakfast
Amount consumed: 40%
Amount consumed: 90%
Patient Education
--- NOTE | 2025-08-14 08:23 | W.PN.CT ---
Today's Communication / Plan
-
-pod #2
-no issues ovenight
-L CT @ -20 sxn, no air leak, put out 125/225 dark bloody output in 12 /24 hrs. No air leak
-follow CXR
-encourage IS (1000 so far), ambulate
Assessment / Plan
-
- Chronic left pleural effusion with large volume, lung entrapment- s/p Left video-assisted thoracoscopic surgery, decortication and mechanical and chemical pleurodesis by Dr. Rios on 08/12/25, pod #2
- Chronic pleural effusion requiring multiple thoracentesis/drainage of multiple liters at a time
- Hypertension
- Hypercholesterolemia
- Atrial fibrillation
- HFpEF
- CKD IIIA (Cr 1.3-1.5)
Discussed patient care with: Nursing and Care Team
Subjective
-
Date of Service: August 14, 2025
Objective Data
-
Lab Results
08/13/25 03:22
08/13/25 04:03
Vital Signs
Vital Signs
Temp Pulse Resp BP Pulse Ox
98 F 89 16 108/69 94
08/14/25 08:12 08/14/25 06:00 08/14/25 08:12 08/14/25 04:34 08/14/25 08:12
CT Intake/Output/Weight
08/13/25 08/14/25 08/14/25
18:59 06:59 18:59
Intake Total 840 / 840
Output Total 270 / 545 275 / 545
Balance 570 / 295 -275 / 295
SaO2: 94
Physical Exam
-
General: Awake and AOx3
Cardiovascular: Irregular rate & rhythm and No Murmurs
Respiratory: Decreased Breath Sounds
Incision: Clean (no crepitus), Dry and Dressing Intact
Extremities: Other (trace edema b/l)
Abdomen: soft, nontender, nondistended
Data Reviewed
-
Lab Results: Results Reviewed
Medications: Active Meds Reviewed
Chest X-Ray: Report Reviewed and Image Reviewed
ECG: Report Reviewed and Image Reviewed
[2025-08-14 08:26] LABS: Glucose - Point of Care 219 mg/dl (70-99)
[2025-08-14] MEDS: NOVOLOG FLEXPEN-HIGH RESISTANCE 4 UNITS SC (08:26)
[2025-08-14] MEDS: MIRALAX 17 GRAMS PO (08:26)
[2025-08-14] MEDS: LIDOCAINE 4% PATCH 1 PATCH TOPICAL (08:27)
[2025-08-14] MEDS: TOPROL XL 100 MG PO (08:27)
[2025-08-14] MEDS: PROTONIX 40 MG PO (08:27)
[2025-08-14] MEDS: AMARYL 1 MG PO ×2 (08:27→17:28)
[2025-08-14] MEDS: FARXIGA 10 MG PO (08:28)
[2025-08-14] MEDS: LASIX 80 MG PO (08:28)
[2025-08-14] MEDS: NEURONTIN 100 MG PO ×3 (08:28→21:06)
[2025-08-14] MEDS: SENOKOT 8.6 MG PO ×2 (08:28→21:06)
[2025-08-14] MEDS: MAGNESIUM OXIDE 400 MG PO (08:28)
--- NOTE | 2025-08-14 10:10 | PTCARENOTE ---
Pt is AOx3, no complaints of pain or discomfort. Pt is Tajik speaking, language line utilized. Pt worked with OT this am, OOB to chair. Chest tube connected to wall suction. Afib on tele monitor, VSS. Call valle within reach.
--- NOTE | 2025-08-14 11:32 | CM ---
Chart reviewed. Patient OOB sitting in the chair. Patient is Armenian speaking, independent of ADLS, lives alone in a apartment 11th floor, elevator access, ambulates with a RW, also has a shower chair, grab bars, patient receives VN/PT/OT/GEOLOGICAL SPECIALIST
with [facility]. Plan is for the patient to return home with [facility]. CM to follow
--- NOTE | 2025-08-14 13:58 | W.PN.HOSP.TC ---
Today's Communication/Plan
-
Chest tube management
Blood glucose monitoring and adjustment of diabetic regimen
PT assessment
Assessment / Plan
Assessment / Plan
85yo Puerto Rican speaking F with PMHx of HTN, HLD, permanent Fib on Eliquis, DM, HFpEF, CKD stage 3a, GERD, L breast CA s/p lumpectomy, chemo and RT, came with recurrent dyspnea, found large L pleural effusion similar to the one seen on prior admission
month ago. Managed for CHF exacerbation, had chest tube placed on 08/06/25 draining around 3L over first 24h. Fluid exudate by Lights criteria, with negative cultures. Chest tube removed on 08/09/25, pending pleurodesis and decortication by CTS on
08/12/25
A/P:
#Dyspnea 2/2 acute on chronic HFpEF exacerbation and large recurrent L pleural effusion
#Reexpansion lung edema
#Pneumothorax s/p chest tube, most likely lung ex vacuo
CHest tube no drain on 08/09/25 - remove as per pulm
concerned for trapped lung, can be aftermath of RT or recurrent CHF causing persistent fluid
Might need decortication and pleurodesis - mgmt as per Pulm. COnt chest tube
Lasix, daily weight and electrolytes as per cardiology, switch to oral lasix on 10/10/24
Echo on 07/08/25: EF 65-70%, mild-moderate TR, moderate pulmonary HTN without LV dysfunction but mild LVH
Tylenol, Ultram
Patient had rash to morphine before, not anaphylaxis
Path with reactive atypical cells same as on previous thoracentesis
Status post VATS with decortication on 08/12.
08/13 chest tube on wall suction. Follow-up chest x-ray with tiny residual pneumothorax.
#L chest pain
positional, sharp
Troponin neg
Most likely non-cardiac 2/2 recent chest tube and lung ex vacuo on L, however relieved by Nitro SL - in view of planned VATS- recall cariology
EKG without new ST changes or TWI
Serial trop WNL
#hypokalemia
replete
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
outpatient card for monitoring q6-12m
#Afib, permanent
cont tele, HR control
Holding Eliquis 2/2 bloody output from tube as per Pulm
#2.3 cm right lower pole thyroid nodule
TSH within normal limit
outpatient US and further f/u for FNA - Outpatient Endo
#DM type 2 with nephropathy
Hemoglobin A1c 7.3
Basal bolus protocol with serial Accu-Cheks
Monitor oral intake
Continue Farxiga
Initiated on glimepiride. Monitor for hypoglycemia given fluctuating renal function.
If remains hyperglycemic, consider low-dose of long-acting insulin with return to GLP-1/Trulicity upon discharge.
#CKD stage 3a
CKD probably contributing to fluid retention
Accuchecks, Insulin SS, DM diet
CrCl 29 - stop metformin
Recurrent CHF - stop Actos and glimepiride
cont Jardiance, consider GLP-1 inh as outpatient
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
already on treatment
#Elevated Alk.phos
GGT minimally elevated with neg RUQ pain
Most likely bone-related
will follow LFT
#HLD
#Neuropathy
#GERD
cont home meds
DVT ppx on SCDs when off Eliquis
Full code
I have spent at least 51min reviewing chart, test results, communicating with consultants, family and providing direct patient care
Anticipated Discharge: 24 - 48 hours
Subjective/Interval History
-
Date of Service: August 14, 2025
Objective Data
-
Labs:
Laboratory Results
08/14/25
11:40
Sodium Pending
Potassium Pending
Chloride Pending
Carbon Dioxide Pending
BUN Pending
Creatinine Pending
Glucose Pending
Calcium Pending
Vital Signs:
Vital Signs
Temp Pulse Resp BP Pulse Ox
97.5 F 91 16 109/69 98
08/14/25 11:34 08/14/25 08:30 08/14/25 11:34 08/14/25 08:27 08/14/25 11:34
I&O
08/13/25 08/14/25 08/15/25
06:59 06:59 06:59
Intake Total 220 / 220 840 / 840 180 / 180
Output Total 410 / 410 545 / 545
Balance -190 / -190 295 / 295 180 / 180
Physical Exam
-
General: Well Developed and No Apparent Distress
HEENT: Normocephalic, Atraumatic and Moist Mucous Membranes
Respiratory: Clear to Auscultation and Chest Tubes (Left chest tube on waterseal with hemorrhagic effusion)
Cardiac: Regular Rhythm and S1/S2; Negative Murmur, Rub or Gallop
GI: Soft, Nontender, Nondistended and Normal Bowel Sounds; Negative Organomegaly
Rectal: Deferred by Provider
Musculoskeletal: No Clubbing, No Cyanosis and No Edema
Skin: Negative Rash
Neuro: Nonfocal/Grossly Intact
[2025-08-14 14:30] LABS: Glucose - Point of Care 155 mg/dl (70-99)
[2025-08-14] MEDS: NOVOLOG FLEXPEN-HIGH RESISTANCE 2 UNITS SC (14:48)
[2025-08-14 15:04] LABS: Blood Urea Nitrogen 63 mg/dl (7-17); Calcium 8.4 mg/dl (8.4-10.2); Carbon Dioxide 25 mmol/L (22-30); Chloride 96 mmol/L (98-107); Estimated Creatinine Clearance 15 ml/min; Glucose 170 mg/dl (70-99); Potassium 3.8 mmol/L (3.5-5.1); Sodium 132 mmol/L (135-145); eGFR 16.66
--- NOTE | 2025-08-14 16:10 | PN.CDI ---
CDI
- -
CDI:
Physician Documentation Request
Admit Date: 08/05/25 15:22
Dear Doctor Marycarmen,
Patient admitted for pleural effusion.
Laboratory Tests
08/13/25 08/14/25
04:03 14:16
Creatinine 1.6 H 2.7 H
Clarify which of the following accurately represents the patient's renal status:
DENNYS
Rise in creatinine
Other
Criteria for DENNYS*
1 Increase in serum creatinine by > or = to 0.3 mg/dL (> or = to 26.5 micromol/L) within 48 hours, OR
2 Increase in serum creatinine to > or = to 1.5 times baseline, which is known or presumed to have occurred within 7 days, OR
3 Urine volume < 0.5 nL/kg/hour for six hours
Use of terms such as suspected, likely, concern for, or probable (associated with a specific diagnosis that is being evaluated, monitored, or treated as if it exists) are acceptable and can be coded in the inpatient setting, when documented at the
time of discharge.
Thank you,
Negrita Jiménez RN, BSN
CDI Specialist
Available via [place] text
Please use your independent medical judgment in providing your response.
*Source: Kidney Disease: Improving Global Outcomes (KDIGO) 2012
--- NOTE | 2025-08-14 16:13 | PN.CDI ---
CDI
- -
CDI:
Physician Documentation Request
Admit Date: 08/05/25 15:22
Dear Doctor Marycarmen,
Patient admitted for pleural effusion.
08/14 Hospitalist PN: 'CKD stage 3a'
Laboratory Tests
08/13/25 08/14/25
04:03 14:16
Creatinine 1.6 H 2.7 H
Clarify which of the following accurately represents the patient's renal status:
DENNYS on CKD 3a
Rise in creatinine
Other
Criteria for DENNYS*
1 Increase in serum creatinine by > or = to 0.3 mg/dL (> or = to 26.5 micromol/L) within 48 hours, OR
2 Increase in serum creatinine to > or = to 1.5 times baseline, which is known or presumed to have occurred within 7 days, OR
3 Urine volume < 0.5 nL/kg/hour for six hours
Use of terms such as suspected, likely, concern for, or probable (associated with a specific diagnosis that is being evaluated, monitored, or treated as if it exists) are acceptable and can be coded in the inpatient setting, when documented at the
time of discharge.
Thank you,
Negrita Jiménez RN, BSN
CDI Specialist
Available via [place] text
Please use your independent medical judgment in providing your response.
*Source: Kidney Disease: Improving Global Outcomes (KDIGO) 2012
[2025-08-14] MEDS: TYLENOL PO (17:04)
[2025-08-14 17:25] LABS: Glucose - Point of Care 253 mg/dl (70-99)
[2025-08-14] MEDS: NOVOLOG FLEXPEN-HIGH RESISTANCE 7 UNITS SC (17:28)
[2025-08-14] MEDS: LIPITOR 10 MG PO (21:06)
[2025-08-14] MEDS: REMOVE LIDOCAINE PATCH 1 PATCH REMOVE (21:07)
[2025-08-14 22:04] LABS: Glucose - Point of Care 161 mg/dl (70-99)
[2025-08-14] MEDS: ULTRAM 50 MG PO (22:57)
--- NOTE | 2025-08-14 23:52 | PTCARENOTE ---
Received pt @ change of shift. Pt resting in bed, rhythmic breathing with eyes closed. Awoke to tactile stimulation. Requested to get OOB in chair-- sat in chair for about 2.5 hours. Ambulated with assistance to bathroom. Chest tube in place-- not
connected to suction. Language line in room-- used for communication. Described having 6/ pain @ chest tube site-- given Ultram-- see MAR. Discussed plan of care. Pt verbalizes understanding. Call valle within reach.
[2025-08-15] VITALS (8 sets, daily range): BP systolic 92–121; BP diastolic 62–100; BMI 29.0
[2025-08-15 03:06] LABS: Hematocrit 37.3 % (37.0-47.0); Hemoglobin 12.3 g/dL (12.0-16.0); Mean Corp Hgb Conc. 33.0 g/dL (33.0-37.0); Mean Corpuscular Volume 86.7 fL (81.0-99.0); Nucleated Red Blood Cells % 0 %; Platelet Count 263 10^3/uL (130-400); Red Cell Dist. Width 16.5 % (11.5-14.5)
[2025-08-15 03:31] LABS: Blood Urea Nitrogen 71 mg/dl (7-17); Calcium 8.3 mg/dl (8.4-10.2); Carbon Dioxide 25 mmol/L (22-30); Chloride 98 mmol/L (98-107); Estimated Creatinine Clearance 14 ml/min; Glucose 153 mg/dl (70-99); Potassium 4.0 mmol/L (3.5-5.1); Sodium 133 mmol/L (135-145); eGFR 15.95
[2025-08-15] MEDS: TYLENOL 1000 MG PO ×3 (05:47→20:59)
[2025-08-15] MEDS: PROTONIX 40 MG PO (08:41)
[2025-08-15] MEDS: AMARYL 1 MG PO ×2 (08:41→17:17)
[2025-08-15] MEDS: NEURONTIN 100 MG PO ×3 (08:41→20:59)
[2025-08-15] MEDS: TOPROL XL 100 MG PO (08:41)
[2025-08-15] MEDS: MAGNESIUM OXIDE 400 MG PO (08:41)
[2025-08-15] MEDS: LASIX 80 MG PO (08:41)
[2025-08-15] MEDS: SENOKOT 8.6 MG PO ×2 (08:41→20:57)
[2025-08-15] MEDS: FARXIGA 10 MG PO (08:41)
[2025-08-15 08:42] LABS: Glucose - Point of Care 138 mg/dl (70-99)
[2025-08-15] MEDS: NOVOLOG FLEXPEN-HIGH RESISTANCE 1 UNITS SC (08:42)
[2025-08-15] MEDS: MIRALAX 17 GRAMS PO (08:42)
--- NOTE | 2025-08-15 08:57 | W.PN.UPDATE ---
Update Note
Progress Note Update
-no issues overnight
-CT on water seal since 08/14. No air leak noted, put out 160 overnight old dark bloody effusion
-CXR this am with no pneumothorax. Increased left basilar consolidation.
--- NOTE | 2025-08-15 09:48 | W.PN.PUL3 ---
Today's Communication / Plan
-
Hopefully can discontinue chest tube soon per CT surgery per
Follow-up official pathology report-possibly malignant
-
Incentive spirometry encouraged
Increase mobility as able
After chest tube is discontinued can be followed in the outpatient for reaccumulation.
Assessment
-
Patient is a 85-year-old female who presents to the hospital with worsening shortness of breath and orthopnea. Patient has known history of hypertension hyperlipidemia, A-fib and heart failure with preserved ejection fraction who recently was
hospitalized for similar symptoms. Patient had thoracentesis performed for left-sided pleural effusion diagnosed in 06/2025. Patient had thoracentesis performed x 2 with 1200 to 1500 mL fluid removed suggestive of exudative by protein criteria and
transudate by LDH criteria. Post-thoracentesis x-ray did not show full reexpansion of the lung raising concern for possibly trapped lung versus loculations. Patient reports that after discharge she did well for a while and then again progressively
developed worsening shortness of breath in addition to orthopnea. Bilateral lower extremity edema also worsened. The symptoms brought her back to the emergency room. Repeat imaging showed a large left-sided pleural effusion. Pulmonary
consultation was requested for further input.
#. Left sided pleural effusion, recurrent with trapped lung physiology
-Differential diagnosis include malignancy, postradiation changes with h/o left sided breast cancer (s/p lumpectomy and radiation), parapneumonic effusion etc. Volume overload likely exacerbated the effusion.
- Pneumothorax ex-vacuo with poor re-expansion of LLL again suggestive of trapped lung in the setting of h/o radiation therapy
- Cytology negative on 07/06 and 07/09 and (mesothelial cells, macrophages present, light lymphocyte background inflammation)
- Pleural fluid cultures negative x 3.
- Exudative by protein criteria however LDH not significantly elevated. Predominantly mononuclear cells suggestive of chronicity. Exudative versus pseudo exudative in the presence of diuresis. Fluid triglyceride less than 30, rules out
chylothorax. Presence of mesothelial cells makes tuberculosis unlikely.
-Due to pleural fluid recurrence: Underwent video-assisted thorascopic surgery, decortication and mechanical and chemical pleurodesis 08/12/2025
- Chest tube with minimal drainage-chest x-ray this morning 08/15/2025 with no significant pleural fluid accumulation or pneumothorax.
- CT surgery following the case-can discontinue chest tube per protocol when ready. Case discussed with Dr. Rios
Pathology possibly malignant-official report pending.
- Hopefully above procedure will maintain lung reexpanded without significant pleural fluid reaccumulation.
#2. LLL ground glass opacities. (?re-expansion edema)
- No obvious mass noted
- Re-expansion pulmonary edema related to large volume fluid removal, follow-up chest x-ray 08/09 with improving interstitial opacity.
- Currently on room air
-Eventual repeating CT chest in the future.
#3. Pulmonary hypertension, mild --likely related to cardiac disease.
-Diuresis if necessary
- PASP 45 mm on ECHO
- Suspect primarily group II with underlying congestive heart failure
Other medical diagnoses:
- Chronic atrial fibrillation
- Hypertension, hyperlipidemia
- Chronic kidney disease
- Diabetes
- H/o Left sided breast cancer, s/p surgery x 3 and radiation therapy, 32 sessions per patient as well as gamma radiation therapy. Details not available.
Data:
ECHO 06/2025: 1. Normal LV size. Mild LVH. Normal LV systolic function. Estimated LVEF 65-70%.
2. Mild/moderate tricuspid regurgitation. Estimated pulmonary artery pressure of 45 mmHg assuming a right atrial pressure of 8 mmHg. Mild/moderately elevated PASP.
3. There is evidence of pleural effusion.
4. No prior study available for comparison.
Lexiscan 03/2025: Negative ECG for ischemia given the pharmacological study.
Normal Lexiscan nuclear stress test.
Systolic function is normal. The ejection fraction is 62%.
Stress Risk is low risk study, but the patient may be at moderate risk (risk of 1 - 3% OK or /year) due to pharmacologic agent used.
Subjective Data
-
Date of Service:
Date of Service: August 15, 2025
Chief Complaint: Pulmonary Follow Up and Dyspnea Follow Up
Subjective:
She offers no significant complaints
Denies chest discomfort
Review of Systems
General: Fever (n)
Cardiopulmonary: Dyspnea (n)
GI: Abdominal Pain (n), Nausea (n) and Vomiting
Objective Data
Data Reviewed
Vital Signs / I&O / Oxygen:
Vital Signs
Temp Pulse Resp BP Pulse Ox
97.8 F 72 18 100/73 99
08/15/25 06:49 08/15/25 08:41 08/15/25 08:00 08/15/25 08:41 08/15/25 08:00
Intake and Output
08/14/25 08/15/25 08/16/25
06:59 06:59 06:59
Intake Total 840 / 840 180 / 180 180 / 180
Output Total 545 / 545 160 / 160
Balance 295 / 295 20 / 20 170 / 170
SaO2 99
Nasal Cannula flow liters per 2
minute
Physical Exam
General: Respiratory Distress (n) and Comfortable
HEENT: Normocephalic and Anicteric
Cardiovascular: Regular Rhythm and Murmur
Respiratory: Crackles (Rare basilar on the left), Rhonchi (n), Non-Labored Respirations, Accessory Resp Muscle Use (n), Stridor (n) and Chest Tube (No airleak. Serosanguineous fluid)
GI: Soft and Non Distended
Neurology: Awake, Alert and No Motor Deficits
Skin: Warm, Good Color, Cyanosis (n) and Jaundice (n)
Labs/Micro/Reports
Lab Data
08/15/25 02:26
08/15/25 02:26
Microbiology
08/12/25 16:12 Lung - Left Tissue Culture - Preliminary
No Growth After 72 Hours
08/12/25 16:12 Lung - Left Gram Stain - Preliminary
08/12/25 16:12 Pleural Fluid Body Fluid Culture - Final
No Growth After 72 Hours
08/12/25 16:12 Pleural Fluid Gram Stain - Final
08/12/25 16:12 Lung - Left Anaerobic Culture - Preliminary
Culture pending. Anaerobic cultures are examined after 3
days incubation. Additional information to follow.
08/06/25 14:59 Pleural Fluid Fungal Culture - Preliminary
Culture in progress.
Positive cultures are reported as soon as detected.
Final report to follow in four to five weeks.
[2025-08-15] MEDS: LIDOCAINE 4% PATCH 1 PATCH TOPICAL (10:29)
[2025-08-15] MEDS: TYLENOL 650 MG PO (10:29)
--- NOTE | 2025-08-15 10:59 | CM ---
Chart reviewed. Patient is an assist of ADLS, lives alone in a apartment on the 11th floor, elevator access, ambulates with a RW, has a shower chair and grab bars. Patient is Togolese speaking. Patient is current with [facility]/PT/OT
and a [employer]. I spoke with the patient, son and granddaughter. PT is currently recommending SNF. Family and patient prefer the patient to go home unless they feel the patient would qualify for Acute Care Rehab. Patient already gets skilled
services at home. CM to follow
--- NOTE | 2025-08-15 11:56 | PN.DE.MGMTRT ---
Insulin Management
- -
08/15/2025 Diabetes Management Consult Follow up
Patient admitted 08/05 with breathing problem increased weakness. Diabetes Management Consult 08/13. PMH HTN, diabetes, HCL, afib, ckd 3a, GERD, L breast ca - chemo. Prior to admission was taking Trulicity 4.5 mg Fridays, Jardiance 10 mg daily,
metformin 850 mg BID, Actos 30 mg daily, glimepiride 1 mg BID (these medications were confirmed with granddaughter 08/13). A1C on admission 7.1%, cr 1.6, eGFR 31.21.
08/06 CT scan - l pleural effusion Chest tube x 2 inserted.
08/12 Decortication & mechanical and chemical pleurodesis. Glucose range 181 to 245.
08/13 POD 1 s/p Decortication & mechanical and chemical pleurodesis. Patient is Unkranian speaking only. Language line electronic transaction implementer [id number] used today. Information from patient conflicting. Called granddaughter today to confirm information.
Granddaughter states patient does not have CHF. Patient is seen by endocrine, Mercy Del Castillo at [facility] for ongoing care.
08/13 Fasting glucose 255. Due to patient cr 1.6 will not resume metformin or actos. Will continue Farxiga 10 mg daily and resume home medication glimepiride 1 mg BID first dose with dinner.
08/14 POD 2 s/p Decortication & mechanical and chemical pleurodesis. HS glucose improved last night 181. Fasting glucose today 219. To receive glimepiride 1 mg with breakfast, first dose with breakfast and continue Farxiga.
08/15 POD 3 s/p Decortication & mechanical and chemical pleurodesis. Patient is awake and alert, only able to communicate through electronic transaction implementer line, prefers to have granddaughter discuss current medicatons. CR 2.8, eGFR 15.95. Resumed glimepiride
1 mg BID yesterday. HS glucose improved 161. 2:26AM glucose 153. Fasting glucose today 130. Will continue Glimepiride 1 mg BID with Farxiga 10 mg daily with high corrective insulin.
Discussed with nurse
Will follow.
Diabetes History
- -
Type of Diabetes: 2
Pre-Admission Diabetes Regimen
08/14/25 08/15/25
14:16 02:26
Creatinine 2.7 H 2.8 H
Lab Results
Hemoglobin A1c 7.1 % (4.0-5.9) H 08/06/25 06:52
Insulin Pump Settings
IP Diabetes Regimen
08/14/25 08/14/25 08/14/25
14:16 14:28 17:24
Glucose 170 H
POC Glucose 155 H 253 H
08/14/25 08/15/25 08/15/25
22:03 02:26 08:40
Glucose 153 H
POC Glucose 161 H 138 H
Meal type: Dinner
Amount consumed: 100%
Patient Education
[2025-08-15 12:12] LABS: Glucose - Point of Care 279 mg/dl (70-99)
--- NOTE | 2025-08-15 12:24 | W.PN.UPDATE ---
Update Note
Progress Note Update
Apical chest tube discontinued by me at bedside without incident per Dr. Rios. Inadvertently cut tie down U-stitch, but half tied down. This will be removed by CT RN vs in office postop appt. Remaining basilar chest tube remains on water seal to
new pleurevac without air leak. Pt tolerated very well. Translation services used for this encounter.
[2025-08-15] MEDS: NOVOLOG FLEXPEN-HIGH RESISTANCE 7 UNITS SC ×2 (12:51→17:17)
--- NOTE | 2025-08-15 15:33 | W.PN.HOSP.TC ---
Today's Communication/Plan
-
Left chest tube on waterseal
Follow-up chest x-ray
DENNYS with creatinine up to 2.8. Hold Lasix follow BMP
Adjust diabetic regimen
PT
Assessment / Plan
Assessment / Plan
85yo Mongolian speaking F with PMHx of HTN, HLD, permanent Fib on Eliquis, DM, HFpEF, CKD stage 3a, GERD, L breast CA s/p lumpectomy, chemo and RT, came with recurrent dyspnea, found large L pleural effusion similar to the one seen on prior admission
month ago. Managed for CHF exacerbation, had chest tube placed on 08/06/25 draining around 3L over first 24h. Fluid exudate by Lights criteria, with negative cultures. Chest tube removed on 08/09/25, pending pleurodesis and decortication by CTS on
08/12/25
Impression
Left-sided pleural effusion, recurrent and symptomatic with trapped lung pathophysiology
Hypokalemia
Other medical conditions
Left breast CA status postlumpectomy, chemotherapy and radiation
Permanent atrial fibrillation.
Anticoagulation with Eliquis.
Chronic CHF preserved EF
Ascending thoracic aortic aneurysm
Essential hypertension
Dyslipidemia
CKD stage III-3a
Type 2 diabetes
Thyroid nodule
GERD
Neuropathy
Plan
Symptomatic left pleural effusion, recurrent with trapped lung physiology.
Pleural analysis close to transudate
Suspect trapped lung with mixed etiology status postradiation injury as well as component of CHF related effusion
Transient episode of left lower lobe ground glass opacity possibly secondary to reexpansion pulmonary edema.
Status post chest tube with apical pneumothorax, most likely lungs ex-vacuo.
Status post VATS with decortication on 08/12.
Residual apical left pneumothorax improved.
Left upper chest tube removed on 08/15.
Left lower chest tube remains on waterseal with follow-up chest x-ray hopefully to be removed on 08/16.
Has been off Eliquis preoperatively with improved hemorrhagic effusion.
Noncardiac chest pain upon presentation positional and pleuritic pain
Negative cardiac markers.
ECG without ischemic changes.
Analgesic regimen including Tylenol, gabapentin, Ultram, IV hydromorphone for breakthrough pain
Chronic CHF preserved EF.
ASCVD
Echo on 07/08/25: EF 65-70%, mild-moderate TR, moderate pulmonary HTN without LV dysfunction but mild LVH
Continue metoprolol
Continue Lipitor
Hold Lasix given DENNYS
Continue Farxiga with caution monitor renal function
CKD stage III AA
DENNYS with creatinine rising up to 2.8
Avoid hypotension
Hold Lasix
Follow BMP
Type 2 diabetes.
Hemoglobin A1c 7.3
Persistent hyperglycemia
Preadmission regimen including pioglitazone, metformin, Jardiance, Trulicity
Would avoid pioglitazone in the settings of CHF, metformin given progressive CKD
Continue SGLT2 with caution given DENNYS
Initiated on glimepiride with improvement.
Thyroid nodules
Normal TFTs
Outpatient follow-up
Anticipated Discharge: 24 - 48 hours
Subjective/Interval History
-
Date of Service: August 15, 2025
Objective Data
-
Vital Signs:
Vital Signs
Temp Pulse Resp BP Pulse Ox
97.9 F 72 20 93/62 97
08/15/25 11:14 08/15/25 11:30 08/15/25 11:14 08/15/25 11:13 08/15/25 11:14
I&O
08/14/25 08/15/25 08/16/25
06:59 06:59 06:59
Intake Total 840 / 840 180 / 180 180 / 180
Output Total 545 / 545 160 / 160
Balance 295 / 295 20 / 20 170 / 170
Physical Exam
-
General: Well Developed and No Apparent Distress
HEENT: Normocephalic, Atraumatic and Moist Mucous Membranes
Respiratory: Clear to Auscultation and Chest Tubes (Left chest tube on waterseal with hemorrhagic effusion)
Cardiac: Regular Rhythm and S1/S2; Negative Murmur, Rub or Gallop
GI: Soft, Nontender, Nondistended and Normal Bowel Sounds; Negative Organomegaly
Rectal: Deferred by Provider
Musculoskeletal: No Clubbing, No Cyanosis and No Edema
Skin: Negative Rash
Neuro: Nonfocal/Grossly Intact
[2025-08-15 16:37] LABS: Glucose - Point of Care 294 mg/dl (70-99)
[2025-08-15] MEDS: ULTRAM 50 MG PO (20:57)
[2025-08-15] MEDS: LIPITOR 10 MG PO (20:59)
[2025-08-15] MEDS: REMOVE LIDOCAINE PATCH 1 PATCH REMOVE (21:05)
[2025-08-15 21:57] LABS: Glucose - Point of Care 164 mg/dl (70-99)
--- NOTE | 2025-08-15 23:19 | PTCARENOTE ---
Received pt @ change of shift. AAOx3, OOB in chair. VSS, AFib with PVCs on monitor. Chest tube w/ water seal. Language line in room-- used for communication. Discussed plan of care for evening. Pt verbalizes understanding. Call valle within reach.
[2025-08-16] VITALS (7 sets, daily range): BP systolic 94–128; BP diastolic 47–89; PULSE 79; O2SAT 100; BMI 29.1
[2025-08-16 02:27] LABS: Hematocrit 34.5 % (37.0-47.0); Hemoglobin 12.2 g/dL (12.0-16.0); Mean Corp Hgb Conc. 35.4 g/dL (33.0-37.0); Mean Corpuscular Volume 82.5 fL (81.0-99.0); Nucleated Red Blood Cells % 0 %; Platelet Count 257 10^3/uL (130-400); Red Cell Dist. Width 15.9 % (11.5-14.5)
[2025-08-16 02:50] LABS: Blood Urea Nitrogen 75 mg/dl (7-17); Calcium 8.2 mg/dl (8.4-10.2); Carbon Dioxide 23 mmol/L (22-30); Chloride 97 mmol/L (98-107); Estimated Creatinine Clearance 17 ml/min; Glucose 149 mg/dl (70-99); Potassium 4.4 mmol/L (3.5-5.1); Sodium 132 mmol/L (135-145); eGFR 19.19
[2025-08-16] MEDS: TYLENOL 1000 MG PO ×2 (06:33→14:11)
--- NOTE | 2025-08-16 07:47 | PN.DE.MGMTRT ---
Insulin Management
- -
08/16/2025: Diabetes Management Follow up
85 year old female admitted 08/05 with breathing problem increased weakness.
Diabetes Management Consult 08/13. 08/06 CT scan - l pleural effusion Chest tube x 2 inserted.
PMH: HTN, T2DM, HCL, A-Fib, CKD3a, GERD, L breast ca -chemo,
Information from patient via language line conflicting. Called granddaughter to confirm information. Granddaughter states patient does not have CHF and that Patient is seen by endocrine, Mercy Del Castillo at [place] for ongoing care.
Prior to admission was taking Trulicity 4.5 mg Fridays, Jardiance 10 mg daily, metformin 850 mg BID, Actos 30 mg daily, glimepiride 1 mg BID (these medications were confirmed with granddaughter 08/13). A1C on admission 7.1%, Cr 1.6-->2.8-->2.4
eGFR 19.19 today.
Patient is awake and alert, Unkranian speaking only, able to communicate through hearing instrument specialist line, prefers to have granddaughter discuss plan of care
POD # 4 s/p Decortication & mechanical and chemical pleurodesis.
08/13 Resumed sglt-2 Farxiga 10 mg daily and home medication glimepiride 1 mg BID but did not resume Metformin or Actos due to worsening kidney function.
HS glucose improved 164. 2:26AM glucose 149. Fasting glucose 236 POC today. Cr of 2.4 today.
Will continue Glimepiride 1 mg BID with Farxiga 10 mg daily with high corrective insulin.
Discussed with nurse. Will cont to follow.
Diabetes History
- -
Type of Diabetes: 2
Pre-Admission Diabetes Regimen
08/16/25
02:00
Creatinine 2.4 H
Lab Results
Hemoglobin A1c 7.1 % (4.0-5.9) H 08/06/25 06:52
Insulin Pump Settings
IP Diabetes Regimen
08/15/25 08/15/25 08/15/25
08:40 12:11 16:36
Glucose
POC Glucose 138 H 279 H 294 H
08/15/25 08/16/25
21:55 02:00
Glucose 149 H
POC Glucose 164 H
Meal type: Dinner
Amount consumed: 100%
Patient Education
[2025-08-16] MEDS: MAGNESIUM OXIDE 400 MG PO (07:49)
[2025-08-16] MEDS: TOPROL XL 100 MG PO (07:49)
[2025-08-16] MEDS: FARXIGA 10 MG PO (07:49)
[2025-08-16] MEDS: PROTONIX 40 MG PO (07:49)
[2025-08-16] MEDS: ULTRAM 50 MG PO (07:49)
[2025-08-16] MEDS: NEURONTIN 100 MG PO (07:49)
[2025-08-16] MEDS: AMARYL 1 MG PO (07:49)
[2025-08-16] MEDS: LIDOCAINE 4% PATCH TOPICAL (07:50)
[2025-08-16] MEDS: MIRALAX PO (07:50)
[2025-08-16] MEDS: SENOKOT PO (07:50)
[2025-08-16 08:38] LABS: Glucose - Point of Care 236 mg/dl (70-99)
[2025-08-16] MEDS: NOVOLOG FLEXPEN-HIGH RESISTANCE 4 UNITS SC ×2 (09:12→14:10)
--- NOTE | 2025-08-16 09:58 | W.PN.UPDATE ---
Update Note
Progress Note Update
[employer] Grip used at bedside. Patient assisted back into bed and positioned on R side. L pleural basilar chest tube removed without issue. Remaining suture secured. Site cleansed and DSD with Vaseline gauze applied. Patient tolerated chest
tube removal well. Plan for follow-up CXR at 1300.
--- NOTE | 2025-08-16 10:01 | W.PN.UPDATE ---
Addendum entered and electronically signed by Marleny Richey NP 08/16/25 10:06:
- Awaiting definitive results from [facility] pathology.
Original Note:
Update Note
Progress Note Update
- No issues overnight
- L Basilar CT on water seal since 08/14. No air leak noted, put out 130mL overnight old dark bloody effusion.
- CT site with moderate serous drainage within ABD over 24-hours.
- AM CXR without pneumothorax, improving consolidation of L base.
- Plan to discontinue remaining CT today, follow-up CXR at 1300.
--- NOTE | 2025-08-16 10:40 | W.PN.PUL3 ---
Today's Communication / Plan
-
Residual chest tube to be discontinued today
Pathology noted with malignancy-breast cancer
May need oncology evaluation-she has known history of breast cancer-discussed with Dr. Conroy. He will discuss with family members -patient will need to go back to her oncologist for therapy.
Follow-up for reaccumulation in the outpatient setting
No additional pulmonary recommendation
Sign off
Assessment
-
Patient is a 85-year-old female who presents to the hospital with worsening shortness of breath and orthopnea. Patient has known history of hypertension hyperlipidemia, A-fib and heart failure with preserved ejection fraction who recently was
hospitalized for similar symptoms. Patient had thoracentesis performed for left-sided pleural effusion diagnosed in 06/2025. Patient had thoracentesis performed x 2 with 1200 to 1500 mL fluid removed suggestive of exudative by protein criteria and
transudate by LDH criteria. Post-thoracentesis x-ray did not show full reexpansion of the lung raising concern for possibly trapped lung versus loculations. Patient reports that after discharge she did well for a while and then again progressively
developed worsening shortness of breath in addition to orthopnea. Bilateral lower extremity edema also worsened. The symptoms brought her back to the emergency room. Repeat imaging showed a large left-sided pleural effusion. Pulmonary
consultation was requested for further input.
#. Left sided pleural effusion, recurrent with trapped lung physiology
-Differential diagnosis include malignancy, postradiation changes with h/o left sided breast cancer (s/p lumpectomy and radiation), parapneumonic effusion etc. Volume overload likely exacerbated the effusion.
- Pneumothorax ex-vacuo with poor re-expansion of LLL again suggestive of trapped lung in the setting of h/o radiation therapy
- Cytology negative on 07/06 and 07/09 and (mesothelial cells, macrophages present, light lymphocyte background inflammation)
- Pleural fluid cultures negative x 3.
- Exudative by protein criteria however LDH not significantly elevated. Predominantly mononuclear cells suggestive of chronicity. Exudative versus pseudo exudative in the presence of diuresis. Fluid triglyceride less than 30, rules out
chylothorax. Presence of mesothelial cells makes tuberculosis unlikely.
-Due to pleural fluid recurrence: Underwent video-assisted thorascopic surgery, decortication and mechanical and chemical pleurodesis 08/12/2025
- Chest tube with minimal drainage-chest x-ray this morning 08/15/2025 with no significant pleural fluid accumulation or pneumothorax.
- Apical chest tube was discontinued-chest x-ray post without pneumothorax
Total output 130 cc overnight
Cardiothoracic surgery notes reviewed and basilar chest tube will be discontinued today.
Official pathology report: Consistent with breast cancer invading the pleura. Consider oncology evaluation.
Patient does have history of breast cancer.
- Hopefully above procedure will maintain lung reexpanded without significant pleural fluid reaccumulation.
- She will need to be followed for reaccumulation and symptoms. This is a malignant pleural effusion and she will be only drained for symptoms of shortness of breath.
#2. LLL ground glass opacities. (?re-expansion edema)
- No obvious mass noted
- Re-expansion pulmonary edema related to large volume fluid removal, follow-up chest x-ray 08/09 with improving interstitial opacity.
- Currently on room air
-Eventual repeating CT chest in the future.
#3. Pulmonary hypertension, mild --likely related to cardiac disease.
-Diuresis if necessary
- PASP 45 mm on ECHO
- Suspect primarily group II with underlying congestive heart failure
Other medical diagnoses:
- Chronic atrial fibrillation
- Hypertension, hyperlipidemia
- Chronic kidney disease
- Diabetes
- H/o Left sided breast cancer, s/p surgery x 3 and radiation therapy, 32 sessions per patient as well as gamma radiation therapy. Details not available.
-
No additional pulmonary recommendation.
Recommend follow-up with oncology
Follow-up with pulmonary in the outpatient setting in the future as well.
Data:
ECHO 06/2025: 1. Normal LV size. Mild LVH. Normal LV systolic function. Estimated LVEF 65-70%.
2. Mild/moderate tricuspid regurgitation. Estimated pulmonary artery pressure of 45 mmHg assuming a right atrial pressure of 8 mmHg. Mild/moderately elevated PASP.
3. There is evidence of pleural effusion.
4. No prior study available for comparison.
Lexiscan 03/2025: Negative ECG for ischemia given the pharmacological study.
Normal Lexiscan nuclear stress test.
Systolic function is normal. The ejection fraction is 62%.
Stress Risk is low risk study, but the patient may be at moderate risk (risk of 1 - 3% GA or /year) due to pharmacologic agent used.
Subjective Data
-
Date of Service:
Date of Service: August 16, 2025
Chief Complaint: Pulmonary Follow Up and Dyspnea Follow Up
Subjective:
Patient offers no new complaints
Feels better after chest tube discontinued
Denies cough or phlegm production
Review of Systems
General: Fever (n)
GI: Abdominal Pain (n) and Nausea (n)
Objective Data
Data Reviewed
Vital Signs / I&O / Oxygen:
Vital Signs
Temp Pulse Resp BP Pulse Ox
97.7 F 91 20 102/56 100
08/16/25 06:59 08/16/25 08:00 08/16/25 06:59 08/16/25 07:01 08/16/25 06:59
Intake and Output
08/15/25 08/16/25 08/17/25
06:59 06:59 06:59
Intake Total 180 / 180 180 / 180
Output Total 160 / 160 740 / 740
Balance 20 / 20 -560 / -560
SaO2 100
Nasal Cannula flow liters per 2
minute
Physical Exam
General: Respiratory Distress (n) and Comfortable
HEENT: Normocephalic and Anicteric
Cardiovascular: Regular Rhythm and Murmur
Respiratory: Crackles (Rare basilar on the left), Rhonchi (n), Non-Labored Respirations, Accessory Resp Muscle Use (n), Stridor (n) and Chest Tube (No airleak. Serosanguineous fluid)
GI: Soft and Non Distended
Neurology: Awake, Alert and No Motor Deficits
Skin: Warm, Good Color, Cyanosis (n) and Jaundice (n)
Labs/Micro/Reports
Lab Data
08/16/25 02:00
08/16/25 02:00
Microbiology
08/12/25 16:12 Lung - Left Anaerobic Culture - Preliminary
Culture pending. Anaerobic cultures are examined after 3
days incubation. Additional information to follow.
08/12/25 16:12 Lung - Left Tissue Culture - Preliminary
No Growth After 72 Hours
08/12/25 16:12 Lung - Left Gram Stain - Preliminary
08/12/25 16:12 Pleural Fluid Body Fluid Culture - Final
No Growth After 72 Hours
08/12/25 16:12 Pleural Fluid Gram Stain - Final
--- NOTE | 2025-08-16 11:12 | CM ---
Chart reviewed. Patient is independent of ADLS, lives alone in a apartment 11th floor, elevator access, ambulates with a RW, shower chair, grab bars, Armenian speaking, current with [facility] VN/PT/OT/DISCHARGE COORDINATOR. PT evaluation today patient did
much better, recommending Home with VN. Plan is for the patient to return home with [facility] VN. CM to follow
--- NOTE | 2025-08-16 11:15 | PTCARENOTE ---
Assumed care of pt from prev nsg shift; pt AAOx3 w/no c/o CP or SOB. VSS w/HR in the 70's-80's & BP 94/47 this AM. Pt reporting no SOB or pain post 2nd chest tube removal this AM. pt awaiting for repeat CXR at 1300 to be completed & anticipating D/C
to . Pt worked w/PT & they agree pt is stable for D/C to . Pt w/old CT sites w/dressings C/D/I. This RN called pt's daughter Diane as requested & left a message for her. Pt w/call valle within reach & plan of care ongoing.
--- NOTE | 2025-08-16 11:35 | W.PN.HOSP.TC ---
Today's Communication/Plan
-
Chest tube removed with follow-up chest x-ray pending
Assessment / Plan
Assessment / Plan
85yo Cymro speaking F with PMHx of HTN, HLD, permanent Fib on Eliquis, DM, HFpEF, CKD stage 3a, GERD, L breast CA s/p lumpectomy, chemo and RT, came with recurrent dyspnea, found large L pleural effusion similar to the one seen on prior admission
month ago. Managed for CHF exacerbation, had chest tube placed on 08/06/25 draining around 3L over first 24h. Fluid exudate by Lights criteria, with negative cultures. Chest tube removed on 08/09/25, pending pleurodesis and decortication by CTS on
08/12/25
Impression
Left-sided pleural effusion, recurrent and symptomatic with trapped lung pathophysiology
Hypokalemia
Other medical conditions
Left breast CA status postlumpectomy, chemotherapy and radiation
Permanent atrial fibrillation.
Anticoagulation with Eliquis.
Chronic CHF preserved EF
Ascending thoracic aortic aneurysm
Essential hypertension
Dyslipidemia
CKD stage III-3a
Type 2 diabetes
Thyroid nodule
GERD
Neuropathy
Plan
Symptomatic left pleural effusion, recurrent with trapped lung physiology.
Pleural analysis close to transudate
Suspect trapped lung with mixed etiology status postradiation injury as well as component of CHF related effusion
Transient episode of left lower lobe ground glass opacity possibly secondary to reexpansion pulmonary edema.
Status post chest tube with apical pneumothorax, most likely lungs ex-vacuo.
Status post VATS with decortication on 08/12.
Residual apical left pneumothorax improved.
Left upper chest tube removed on 08/15.
Left chest tube removed on 08/16 with pending follow-up chest x-ray.
Intraoperative pathology positive for breast carcinoma ER positive HER2 negative.
Will be referred for primary oncology follow-up at [place]
Noncardiac chest pain upon presentation positional and pleuritic pain
Negative cardiac markers.
ECG without ischemic changes.
Analgesic regimen including Tylenol, gabapentin, Ultram, IV hydromorphone for breakthrough pain
Chronic CHF preserved EF.
ASCVD
Echo on 07/08/25: EF 65-70%, mild-moderate TR, moderate pulmonary HTN without LV dysfunction but mild LVH
Continue metoprolol
Continue Lipitor
Hold Lasix given DENNYS
Continue Farxiga with caution monitor renal function
CKD stage III AA
DENNYS with creatinine rising up to 2.8. Improving down to 2.4
Avoid hypotension
Hold Lasix
Follow BMP
Type 2 diabetes.
Hemoglobin A1c 7.3
Persistent hyperglycemia
Preadmission regimen including pioglitazone, metformin, Jardiance, Trulicity
Would avoid pioglitazone in the settings of CHF, metformin given progressive CKD
Continue SGLT2 with caution given DENNYS
Initiated on glimepiride with improvement.
Thyroid nodules
Normal TFTs
Outpatient follow-up
Anticipated Discharge: 24 - 48 hours
Subjective/Interval History
-
Date of Service: August 16, 2025
Objective Data
-
Labs:
Laboratory Results
08/16/25
02:00
WBC 7.6
Hgb 12.2
Hct 34.5 L
Plt Count 257
Sodium 132 L
Potassium 4.4
Chloride 97 L
Carbon Dioxide 23
BUN 75 H
Creatinine 2.4 H
Glucose 149 H
Calcium 8.2 L
Vital Signs:
Vital Signs
Temp Pulse Resp BP Pulse Ox
97.4 F 91 20 102/56 99
08/16/25 11:09 08/16/25 08:00 08/16/25 11:09 08/16/25 07:01 08/16/25 11:09
I&O
08/15/25 08/16/25 08/17/25
06:59 06:59 06:59
Intake Total 180 / 180 180 / 180
Output Total 160 / 160 740 / 740
Balance 20 / -560 / -560
Physical Exam
-
General: Well Developed and No Apparent Distress
HEENT: Normocephalic, Atraumatic and Moist Mucous Membranes
Respiratory: Clear to Auscultation
Cardiac: Regular Rhythm and S1/S2; Negative Murmur, Rub or Gallop
GI: Soft, Nontender, Nondistended and Normal Bowel Sounds; Negative Organomegaly
Rectal: Deferred by Provider
Musculoskeletal: No Clubbing, No Cyanosis and No Edema
Skin: Negative Rash
Neuro: Nonfocal/Grossly Intact
[2025-08-16 13:23] LABS: Glucose - Point of Care 232 mg/dl (70-99)
--- NOTE | 2025-08-16 14:49 | PN.CDI ---
CDI
- -
CDI:
Physician Documentation Request
Admit Date: 08/05/25 15:22
Dear Doctor,
Patient admitted for pleural effusion.
Laboratory Tests
08/08/25 08/09/25 08/10/25
07:30 06:12 22:26
Sodium 133 L 134 L 131 L
08/14/25 08/15/25 08/16/25
14:16 02:26 02:00
Sodium 132 L 133 L 132 L
Based on the above, could you clarify in the progress notes, the appropriate diagnosis, if significant, that supports the above abnormalities and additional evaluation, monitoring and/or treatment rendered:
Hyponatremia
Abnormal lab value insignificant
Other
Use of terms such as suspected, likely, concern for, or probable (associated with a specific diagnosis that is being evaluated, monitored, or treated as if it exists) are acceptable and can be coded in the inpatient setting, when documented at the
time of discharge.
Thank you,
Negrita Jiménez RN, BSN
CDI Specialist
Available via [place] text
Please use your independent medical judgment in providing your response.
--- NOTE | 2025-08-16 15:45 | W.DS.TRANS ---
DC Summary - [employer]
-
Discharge Instructions:
Discharge Diagnosis/Procedures Malignant pleural effusion
Diet Diabetic, Carb Controlled
Bathing Restrictions OK to Shower
Wound Care Shower daily with soap and water.
No lotions, creams, or powders to procedural
sites.
Maintain remaining chest tube sutures until seen
in follow-up on 08/28/25.
Can continue to apply dry dressing to remaining
sutures if drainage continues, change daily and/
or as needed.
Please call Cardiothoracic Surgery Office if
excessive drainage (dressing changes multiple
times/day) occur.
Instructions: *PCP/Other Archivist Heart Failure Instructions
Stand-Alone Forms:
Changes to Home Medications: Yes
Discharge Medications:
DC Medications w/original date entered in [employer]
lidocaine 5 % topical patch 2 patch topical DAILYPRN PRN b/l knee 07/06/25
atorvastatin 10 mg tablet 10 mg PO HS High cholesterol #0 tabs 07/11/25
cholecalciferol (vitamin D3) 50 mcg (2,000 unit) capsule (Vitamin D3) 50 mcg PO DAILY Supplement #0 caps 07/11/25
empagliflozin 10 mg tablet (Jardiance) 10 mg PO DAILY Diabetes #0 tabs 07/11/25
magnesium 200 mg tablet 400 mg (2 x 200 mg) PO DAILY Supplement #0 tabs 07/11/25
metoprolol succinate 50 mg tablet,extended release 24 hr 100 mg (2 x 50 mg) PO DAILY Blood pressure #60 tabs 07/11/25
dulaglutide 4.5 mg/0.5 mL subcutaneous pen injector (Trulicity) 4.5 mg SC FR Diabetes 08/05/25
furosemide 40 mg tablet 40 mg PO BID Heart disease/condition 08/05/25
gabapentin 100 mg capsule 100 mg PO TID mild Pain 08/05/25
omeprazole 40 mg capsule,delayed release 40 mg PO DAILY gerd 08/05/25
apixaban 2.5 mg tablet (Eliquis) 2.5 mg PO BID #60 tabs 08/16/25
tramadol 50 mg tablet 50 mg PO Q8HPRN PRN moderate pain #20 tabs 08/16/25
Home Medication Changes
Eliquis decreased
Pioglitazone and metformin stopped due to CHD and CKD with decreased GFR
Ultram added for pain
Pending Results: No
--- NOTE | 2025-08-16 16:00 | PTCARENOTE ---
Pt's IV lines D/C'd & detail supervisor D/C'd. Discussed D/C instructions w/pt's son, Noel. Pt walked out w/staff escort using her personal rolling walker.
--- NOTE | 2025-08-16 16:51 | W.PN.UPDATE ---
Update Note
Progress Note Update
Unfortunately Ms. Cote's pathology from OR tissue has come back with ER/NE+ lobulated breast cancer consistent with the previous breast cancer she was treated for. I have discussed this at length with the son and granddaughter and have been
connected to her Oncologist Dr. Jono Vides who knows her very well. I informed the patient of her diagnosis and have explained to her that this may change the success of her decortication and pleurodesis in subsiding her malignant effusion. I do
believe that it is worth seeing how she does and hopefully there may be treatment offered from the cancer standpoint that could help. It is reasonable for us to move forward in discharge and see how she does. If her effusion were to recurr then we
should consider Pleurx again for symptomatic management (which I know she does not want). I have discussed all this through a dry cleaning counter clerk and patient reports understanding. I have sent my operative report and the pathology to her Oncologist as she
will be seeing him on Tuesday.
Please reach out with any further questions or concerns.
== END 2025-08-16 16:15 | disposition home health service (06) | DRG 987 ==
LOC: IVU 15:22
PROVIDERS: Clinical Nurse Specialist Acute Care; Emergency Medicine; Internal Medicine; Nurse Practitioner Family; Physician Assistant Medical; Radiology Vascular & Interventional Radiology; ADMITTING PHYSICIAN Internal Medicine; ATTENDING PHYSICIAN Internal Medicine; CONSULT PHYSICIAN Internal Medicine Cardiovascular Disease; EMERGENCY PHYSICIAN Emergency Medicine; FAMILY PHYSICIAN Internal Medicine; OTHER PHYSICIAN Internal Medicine; OTHER PHYSICIAN Student in an Organized Health Care Education/Training Program
PROC: 0W9B30Z Drainage of Left Pleural Cavity with Drainage Device, Percutaneous Approach (ICD-10-PCS; 2025-08-06)
PROC: 3E0L4GC Introduction of Other Therapeutic Substance into Pleural Cavity, Percutaneous Endoscopic Approach (ICD-10-PCS; 2025-08-12)
DX: C50.919 Malignant neoplasm of unspecified site of unspecified female breast (principal); I50.33 Acute on chronic diastolic (congestive) heart failure; J96.01 Acute respiratory failure with hypoxia; J91.0 Malignant pleural effusion; I13.0 Hypertensive heart and chronic kidney disease with heart failure and stage 1 through stage 4 chronic kidney disease, or unspecified chronic kidney disease; I48.21 Permanent atrial fibrillation; J98.19 Other pulmonary collapse; J93.9 Pneumothorax, unspecified; N17.9 Acute kidney failure, unspecified; E87.1 Hypo-osmolality and hyponatremia; N18.31 Chronic kidney disease, stage 3a; Z11.52 Encounter for screening for COVID-19; E78.00 Pure hypercholesterolemia, unspecified; K21.9 Gastro-esophageal reflux disease without esophagitis; E87.6 Hypokalemia; I25.10 Atherosclerotic heart disease of native coronary artery without angina pectoris; E11.22 Type 2 diabetes mellitus with diabetic chronic kidney disease; E11.40 Type 2 diabetes mellitus with diabetic neuropathy, unspecified; E86.1 Hypovolemia; Z79.01 Long term (current) use of anticoagulants; Z79.899 Other long term (current) drug therapy
CPT/HCPCS: 32505; 32557; 71045; 71046; 71250; 80048; 80053; 81003; 81015; 82945; 82962; 82977; 83036; 83615; 83735; 83880; 83986; 84155; 84157; 84300; 84443; 84478; 84484; 85025; 85027; 86850; 86900; 86901; 86920; 87015; 87070; 87075; 87102; 87116; 87176; 87205; 87502; 87811; 88112; 88305; 88341; 88342; 88360; 89051; 93005; 97110; 97116; 97163; 97164; 97167; 97168; 97530; 97535; 99152; 99153; 99285; C1729; C1769

== ENCOUNTER → 2025-09-11 09:40 | Outpatient (REF) | payer MEDICARE, OTHER, SELFPAY ==
[2025-09-11 12:30] VITALS: BP 119/81; BP_SYST 118
[2025-09-11 12:58] VITALS: BP 127/82; BP_SYST 108
[2025-09-11 13:13] VITALS: BP 127/82
== END ==
LOC: RADI 09:40
PROVIDERS: ATTENDING PHYSICIAN Student in an Organized Health Care Education/Training Program; REFERRING PHYSICIAN Surgery
DX: J90 Pleural effusion, not elsewhere classified (principal); J94.8 Other specified pleural conditions; J98.4 Other disorders of lung
CPT/HCPCS: 32555; 71045; 71046